=== PATIENT | female | born 1950 ===

== ENCOUNTER 2019-01-13 17:15 | Inpatient (IN) ==
[2019-01-13] MEDS ORDERED: Naloxone 0.4 MG/ML INJ IVP PRN (20:11)
[2019-01-13] MEDS ORDERED: *HR* Heparin 5,000 UNIT/ML VIAL IVP PRN ×2 (20:29)
[2019-01-13] MEDS ORDERED: *HR* Heparin 5,000 UNIT/ML VIAL IVP ONE (20:29)
--- NOTE | 2019-01-13 20:29 | Internal Med History&Physical ---
<Darryl Calles - Last Filed: 01/14/19 03:00> Date of Encounter: 01/14/19 Time of Encounter: 20:16 Internal Medicine - H&P: HPI Chief complaint: Unresponsiveness Admitted From: Hospital to Hospital Transfer History of present illness: Ms. Andre is a 68 year old female with "very severe COPD" followed by [facility] who presented to outside hospital in respiratory distress. Report obtained from RN states that the patient was at home and sent a text to her stating that she was in distress and by the time the arrived the patient was found to be unresponsive. History of present illness is listed from outside hospital notes that EMS arrived and found the patient in the tripod position with difficulty breathing with saturations in the 70% range and upon transfer into the ambulance the patient became unresponsive. The patient arrived at outside facility she was intubated due to respiratory distress and there is no further history of present illness that could be gathered at that time. Review of systems was unable to be completed, it is known to patient is on an pro-air inhaler at home however there are no other home medications listed, there are no known drug allergies. Immunizations listed social history is significant for being a former smoker no other values are listed. At the outside facility patient was found to be hypertensive and tachycardic as well as borderline tachypneic, she was noted to be in respiratory distress with diffuse wheezing and rhonchi, report states the patient had a right-sided pneumothorax with chest tube placed, there is an x-ray report listed in the patient's file but I see no mention of intubation or chest tube placement, for this reason I will repeat chest x-ray, there is a CT scan of the head listed which shows opacification of the right frontal sinus with no other acute findings, however upon patient presentation she is noted to be anisocoric with a minimally responsive left pupil right pupil is appropriately reactive to light, I will reperform patient's CAT scan of the head at this time for further evaluation. Patient also had CT scan abdomen and pelvis performed at outside facility which shows diverticulosis which likely colitis in the rectosigmoid colon, as well as ileus without bowel obstruction, no other acute findings were identified. Patient's laboratory values showed an ABG with a respiratory acidosis, she has a mildly elevated white cell count at 11.4 on CBC, BMP reveals elevated glucose at 311 with a mild elevation in her creatinine at 1.11, lactic acid is elevated at 6.2, patient's troponin is elevated 0.22-she was placed on a heparin drip by outside facility which we will continue here in the ICU, Upon admission to the ICU I will initiate sepsis subset due to elevated lactic acid we will obtain blood cultures repeat lactic acid, I will hold antibiotics at this time for repeat laboratories which will include a CBC BMP hepatic panel, lipase, ammonia, lactic acid blood cultures magnesium, phosphorus, troponin, BN P, d-dimer, coags, CT scan of the head, chest x-ray, KUB, ABG. Assessment and plan: Encephalopathy: Patient is currently intubated, Mechanically ventilated and sedated with propofol drip Patient is anisocoric with left pupil approximately 4 mm right pupil approximately 2-3 mm left pupil is sluggish to light CT scan at outside facility shows no acute process-we will obtain repeat CT scan of the head at this time as there is no mention of anisocoria in the outside facilities documentation for further investigation. Acute hypoxic respiratory failure: Patient is intubated and mechanically ventilated Diminished lung sounds throughout with rhonchi There is a right-sided chest tube placement with a minimal amount of sanguinous fluid noted in suction device Repeat chest x-ray for verification of tube placement and chest tube KUB for placement of a G-tube Elevated troponin: Patient with elevated troponin at outside facility Noted midline sternotomy scar Repeat troponin, perform d-dimer Continue ACS dose heparin drip EKG at outside facility shows a sinus tachycardia with T-wave inversions noted in the inferior lateral leads, no signs of acute ischemic change Repeat EKG Consult cardiology Lactic acidosis: Initiate sepsis subset for ICU admission Blood cultures, repeat lactic acid, sputum cultures, urinalysis and urine culture Basic labs CT scan abdomen and pelvis shows colitis with diverticulitis and likely ileus Hepatic panel, lipase, ammonia DVT prophylaxis: Patient is on heparin drip Internal Medicine - H&P: Meds Allergy/AdvReac Type Severity Reaction Status Date / Time No Known Allergies Allergy Unverified 10/15/16 12:12 ROS unobtainable: due to endotracheal tube, due to mental status All Systems PM: A 10-system review of systems was performed and is negative for pertinent findings except as documented above in the HPI. - Constitutional Vitals: Resp BP Pulse Ox 20 149/108 99 01/13/19 20:05 01/13/19 20:05 01/13/19 20:05 General appearance: Present: A&O X 0 (Intubated and mechanically ventilated with sedation) Exam: On my initial evaluation in the ICU the patient is intubated and mechanically ventilated, her pupils appear to be anisocoric with left pupil measuring 4 mm and sluggish responsiveness, right pupils approximately 2-3 mm and briskly responsive. The patient is notably agitated as it appears the Versed drip is not adequately managing her level of sedation, I will transfer this to propofol drip at this time. Patient's cardiopulmonary auscultation reveals diminished lung sounds throughout with faint rhonchi, abdominal exam reveals normal bowel sounds abdomen is soft nontender nondistended, there is no peripheral edema noted pulse is strong peripherally. Skin is normal color warm dry and intact, there is a right-sided chest tube with approximately 10-15 mL of sanguinous f luid drainage. - Head Head exam: Present: atraumatic, normal inspection, normocephalic - Eye Eye exam: Present: PERRL (Anisocoria). Absent: scleral icterus - Neck Neck exam general surgery: Present: supple, trachea midline - Respiratory Respiratory exam: Present: decreased breath sounds, rhonchi - Cardiovascular Cardiovascular exam: Present: RRR, +S1, +S2. Absent: diastolic murmur, +S3, +S4, systolic murmur - GI/Abdominal GI/Abdominal exam: Present: normal bowel sounds, soft. Absent: distended, firm, guarding, rebound, rigid, tenderness - Extremities Exam Extremities exam: Present: warm, radial pulses palpable and symmetrical. Absent: pedal edema - Skin Skin exam: Present: dry, intact, warm Internal Med - H&P Results - Labs CBC & Chem 7: 01/13/19 23:51 01/13/19 20:07 - Time Spent With Patient Total time spent is greater than 50% in coordination of care (as documented) at patient's floor/unit and/or counseling patient: <Oziel Capellan - Last Filed: 01/14/19 03:10> Date of Encounter: 01/14/19 Internal Medicine - H&P: HPI History of present illness: Ms. Andre is a 68 year old female All Systems PM: A 10-system review of systems was performed and is negative for pertinent findings except as documented above in the HPI. - Constitutional Vitals: Temp Pulse Resp BP Pulse Ox 97.3 F L 82 16 104/69 98 01/14/19 00:00 01/14/19 01:00 01/14/19 01:00 01/14/19 01:00 01/14/19 01:00 Internal Med - H&P Results - Labs CBC & Chem 7: 01/13/19 23:51 01/13/19 20:07 Labs: Short CBC 01/13/19 Range/Units 23:51 WBC 10.2 (4.3-11.1) K/mcL Hgb 15.0 (11.5-15.4) g/dL Hct 46.8 H (35.3-44.9) % Plt Count 170 (140-400) K/mcL Neutrophils # 9.6 H (1.6-8.9) K/mcL BMP 01/13/19 20:07 Sodium 142 Potassium 4.1 Chloride 110 H Carbon Dioxide 20 L BUN 9 Creatinine 0.65 Glucose 135 H Calcium 8.3 L Cardiac Enzymes 01/13/19 Range/Units 20:07 Troponin I 0.87 H* (< 0.04) ng/mL Liver Function 01/13/19 Range/Units 20:07 Total Bilirubin 0.4 (0.3-1.0) mg/dL Direct Bilirubin 0.1 (0.0-0.2) mg/dL AST 26 (13-39) Units/L ALT 14 (7-52) Units/L Alkaline Phosphatase 88 (34-104) Units/L Albumin 3.9 (3.5-5.7) g/dL - ABG Interpretation ABG results: 01/13/19 22:42 ABG pH 7.33 ABG pCO2 42 ABG pO2 109 H ABG HCO3 22 ABG Total CO2 23 ABG O2 Saturation 98 ABG Base Excess -4 L - Impressions ITS Impressions Chest X-Ray 01/13/19 21:28 IMPRESSION: Support apparatus as above, without gross pneumothorax. Emphysema. D/ / Ruel Saldaña MD / Ruel Saldaña MD Interpreting Provider: Ruel Saldaña MD X-Ray 01/13/19 21:28 IMPRESSION: Tip and side port of the nasogastric tube are in the expected location, superimposed over the gastric body. D/ / Brain Grove MD / Brain Grove MD Interpreting Provider: Brain Grove MD - Time Spent With Patient Total time spent is greater than 39 minutes 50% in coordination of care (as documented) at patient's floor/unit and/or counseling patient: Greater than 35 minutes - Attending Attestation Patient seen and examined independently, including review of objective data i ncluding labs. I agree with plan of care as documented below by the resident with the following comments: Encephalopathy: CT head no acute intracranial process TSH, Na, BUN, Calcium reviewed. Ammonia came back normal. SAT in the a.m. If persistent unresponsive or change of baseline would benefit from MRI brain. Acute hypoxic respiratory failure secondary to pneumothorax: chest tube placed on suction. Positioning verified on chest x-ray Intubated Echocardiogram pending. elevated D-dimer--> CTA orderred. SAT/SBT tomorrow. Elevated troponin: EKG reviewed. Trend troponin Heparin drip, ASA, statin. Cardiology consultation. Low bicarb: VBG orderred. DVT prophylaxis: on systemic anticoag DIspo: >2 day stay.
[2019-01-13 22:50] LABS: ABG Base Excess -4 mEq/L (-2 to 3); ABG HCO3 22 mEq/L (21-27); ABG Oxygen Saturation 98 % (95-98); ABG PCO2 42 mmHg (35-45); ABG PH 7.33 pH Units (7.32-7.45); ABG PO2 109 mmHg (85-104); ABG TCO2 23 mEq/L (20-26); Blood Gas Modality ASSIST CONTROL; Blood Gas PEEP 5 cm H2O; Blood Gas VT 400 cc
[2019-01-13 23:36] LABS: Heparin anti-factor XA UFH 0.05 IU/mL (0.30-0.70); INR 0.9; Prothrombin Time 10.3 Seconds (9.4-12.1)
[2019-01-13 23:37] LABS: Activated Partial Thrombo Time 29.5 Seconds (26.0-36.0)
[2019-01-13 23:47] LABS: Magnesium 2.1 mg/dL (1.6-2.6); Phosphorous 3.5 mg/dL (2.7-4.5)
[2019-01-13 23:59] LABS: Blood Urea Nitrogen 9 mg/dL (8-23); Carbon Dioxide 20 mEq/L (23-29); Chloride 110 mEq/L (98-107); Glucose 135 mg/dL (70-105); Osmolality,Calculated 295 (280-300); Potassium 4.1 mEq/L (3.5-5.1); Sodium 142 mEq/L (136-145); Troponin I 0.87 ng/mL (< 0.04)
[2019-01-14 00:16] LABS: Alanine Aminotransferase 14 Units/L (7-52); Albumin 3.9 g/dL (3.5-5.7); Albumin/Globulin Ratio 1.9 (1.1-2.2); Alkaline Phosphatase 88 Units/L (34-104); Aspartate Amino Transferase 26 Units/L (13-39); BUN/Creatinine Ratio 14 (6-26); Bilirubin,Direct 0.1 mg/dL (0.0-0.2); Bilirubin,Indirect 0.3 mg/dL (0.0-1.2); Bilirubin,Total 0.4 mg/dL (0.3-1.0); Calcium 8.3 mg/dL (8.6-10.3); eGFR For African Americans > 60 (> 60); eGFR For Non-African Americans > 60 (> 60)
[2019-01-14 00:17] LABS: Globulin 2.1 g/dL (2.4-3.5); Lipase 7 Units/L (11-82)
[2019-01-14] MEDS: Heparin 25,000 UNIT/250 ML D5W 25,000 UNIT/250 ML IV.SOLN IVC SCH (00:24)
[2019-01-14 00:27] LABS: Basophils % 0.2 %; Eosinophils % 0.3 %; Immature Granulocytes % 0.5 % (0-4); Lymphocytes % 3.2 %; Monocytes % 1.9 %; Segmented Neutrophils % 93.9 %
[2019-01-14 01:25] LABS: Hematocrit 46.8 % (35.3-44.9); Immature Platelets 13.1 % (1.1-6.1); Lymphocytes # 0.3 K/mcL (0.6-4.6); Mean Corpuscular HGB Conc 32.1 g/dL (31.6-35.5); Mean Corpuscular Hemoglobin 31.5 pg (28.0-33.3); Mean Corpuscular Volume 98.3 fL (83.0-100.0); Mean Platelet Volume 12.5 fL (9.4-12.4); Monocytes # 0.2 K/mcL (0.0-1.3); Neutrophils # 9.6 K/mcL (1.6-8.9); Nucleated Red Blood Cells 0.3 /100 WBC (0); Platelet Count 170 K/mcL (140-400); Red Blood Count 4.76 M/mcL (3.82-4.97); Red Cell Distribution Width 13.6 % (11.5-14.5); White Blood Count 10.2 K/mcL (4.3-11.1)
[2019-01-14 01:27] LABS: Platelet Clumps Few (Not Present); Platelet Estimate Normal (Normal)
[2019-01-14] MEDS ORDERED: Isovue-370 500 ML BOTTLE IVP ONE (02:19)
[2019-01-14] MEDS ORDERED: Aspirin 81 MG TAB.CHEW GTUBE STA (02:19)
[2019-01-14 02:50] LABS: Bilirubin,Urine Small (Negative); Blood,Urine Large (Negative); Clarity,Urine Turbid (Clear); Color,Urine Dark Yellow (Yellow); Glucose,Urine (UA) Normal (Normal); Ketones,Urine 80 mg/dL (Negative); Leukocyte Esterase,Urine Trace (Negative); Nitrite,Urine Negative (Negative); PH,Urine 5.5 pH Units (5.0-8.0); Protein,Urine 30 mg/dL (Neg-Trace); Specific Gravity,Urine 1.024 (1.010-1.025); Urobilinogen,Urine Normal (Normal)
[2019-01-14 02:51] LABS: Bacteria,Urine None Seen per hpf (None-Few); Squamous Epithelial Cell,Urine Many per lpf (None-Few); WBC,Urine 15-30 per hpf (0-3)
[2019-01-14 03:08] LABS: Calcium Oxalate Crystals,Urine Present; RBC,Urine TNTC per hpf (0-3)
[2019-01-14 03:09] LABS: Hyaline Casts,Urine None Seen per lpf (None-Few)
[2019-01-14 04:20] LABS: ABG Base Excess -3 mEq/L (-2 to 3); ABG HCO3 22 mEq/L (21-27); ABG Oxygen Saturation 96 % (95-98); ABG PCO2 36 mmHg (35-45); ABG PH 7.39 pH Units (7.32-7.45); ABG PO2 84 mmHg (85-104); ABG TCO2 23 mEq/L (20-26); Blood Gas Modality ASSIST CONTROL; Blood Gas PEEP 5 cm H2O; Blood Gas VT 400 cc
--- NOTE | 2019-01-14 08:10 | Pulmonology Consult Note ---
<Fermin Montiel W - Last Filed: 01/14/19 13:21> Date of Encounter: 01/14/19 Medications and Allergies Albuterol Sulfate [Ventolin Hfa] 2 inh PO Q4H PRN 01/14/19 [History] Budesonide/Formoterol 160/4.5 [Symbicort 160/4.5] 2 inh IH BIDR 01/14/19 [History] Tiotropium [place] [Spiriva Respimat] 2 inh IH DAILY 01/14/19 [History] Allergy/AdvReac Type Severity Reaction Status Date / Time No Known Allergies Allergy Unverified 10/15/16 12:12 All Systems: The remainder of the systems were reviewed and are negative Physical Examination Vital Signs: Vital Signs, Last 4 Hours Temp Pulse Resp BP Pulse Ox 01/14/19 12:26 96.8 F L 01/14/19 10:13 96.8 F L 16 128/85 97 01/14/19 10:00 80 15 120/79 96 Ventilator Settings Ventilator Settings: Ventilator Settings, Last 8 Hours Ventilator Tidal Volume 400 Setting Ventilator Tidal Volume 400 Setting Ventilator Tidal Volume 400 Setting Ventilator Tidal Volume 400 Setting Ventilator Tidal Volume 400 Setting Ventilator Tidal Volume 400 Setting Ventilator Tidal Volume 400 Setting Ventilator Tidal Volume 400 Setting Ventilator Tidal Volume 400 Setting Ventilator Respiratory Rate 10 Setting Ventilator Respiratory Rate 10 Setting Ventilator Respiratory Rate 16 Setting Ventilator Respiratory Rate 10 Setting Ventilator Respiratory Rate 10 Setting Ventilator Respiratory Rate 16 Setting Ventilator Respiratory Rate 16 Setting Ventilator Respiratory Rate 16 Setting Ventilator Respiratory Rate 16 Setting Actual Respiratory Rate 16 Actual Respiratory Rate 16 Actual Respiratory Rate 16 Actual Respiratory Rate 16 Actual Respiratory Rate 16 Positive End Expiratory 0 Pressure Positive End Expiratory 0 Pressure Positive End Expiratory 5 Pressure Positive End Expiratory 5 Pressure Positive End Expiratory 5 Pressure Positive End Expiratory 5 Pressure Peak Inspiratory Airway 19 Pressure Peak Inspiratory Airway 18 Pressure Peak Inspiratory Airway 18 Pressure Peak Inspiratory Airway 18 Pressure Peak Inspiratory Airway 19 Pressure Results - Laboratory Findings CBC and BMP: 01/14/19 09:26 01/14/19 09:26 ABG ABG pH 7.39 pH Units (7.32-7.45) 01/14/19 10:31 ABG pCO2 38 mmHg (35-45) 01/14/19 10:31 ABG pO2 74 mmHg (85-104) L 01/14/19 10:31 ABG O2 Saturation 95 % (95-98) 01/14/19 10:31 PT/INR, D-dimer PT 10.3 Seconds (9.4-12.1) 01/13/19 20:29 D-Dimer 1026 ng/mLFEU (0-500) H 01/13/19 20:29 Abnormal lab findings: Abnormal lab results WBC 11.4 K/mcL (4.3-11.1) H 01/14/19 09:26 Hct 46.8 % (35.3-44.9) H 01/13/19 23:51 MCV 100.5 fL (83.0-100.0) H 01/14/19 09:26 MCHC 30.7 g/dL (31.6-35.5) L 01/14/19 09:26 MPV 12.5 fL (9.4-12.4) H 01/13/19 23:51 Neutrophils # 9.9 K/mcL (1.6-8.9) H 01/14/19 09:26 Lymphocytes # 0.3 K/mcL (0.6-4.6) L 01/13/19 23:51 Nucleated RBCs/100 WBC 0.3 /100 WBC (0) H 01/13/19 23:51 Clumped Platelets Few (Not Present) A 01/13/19 23:51 Immature Plt Fraction 13.1 % (1.1-6.1) H 01/13/19 23:51 D-Dimer 1026 ng/mLFEU (0-500) H 01/13/19 20:29 Heparin Anti-Xa, Unfract 0.87 IU/mL (0.30-0.70) H 01/14/19 06:54 ABG pO2 74 mmHg (85-104) L 01/14/19 10:31 ABG Base Excess -3 mEq/L (-2 to 3) L 01/14/19 04:16 Chloride 110 mEq/L (98-107) H 01/13/19 20:07 Carbon Dioxide 20 mEq/L (23-29) L 01/14/19 09:26 Glucose 138 mg/dL (70-105) H 01/14/19 09:26 POC Glucose 151 mg/dL (70-99) H 01/13/19 23:34 Lactic Acid 3.0 mmol/L (0.5-2.2) H 01/14/19 09:26 Calcium 8.3 mg/dL (8.6-10.3) L 01/13/19 20:07 Troponin I 1.03 ng/mL (< 0.04) H* 01/14/19 09:26 B-Natriuretic Peptide 121 pg/mL (Less than 100) H 01/13/19 20:07 Serum Total Protein 6.0 g/dL (6.4-8.9) L 01/14/19 09:26 Globulin 2.1 g/dL (2.4-3.5) L 01/14/19 09:26 Lipase 7 Units/L (11-82) L 01/13/19 20:07 Procalcitonin 1.89 ng/mL (0.00-0.15) H 01/14/19 09:26 Urine Clarity Turbid (Clear) A 01/14/19 02:40 Urine Protein 30 mg/dL (Neg-Trace) H 01/14/19 02:40 Urine Ketones 80 mg/dL (Negative) H 01/14/19 02:40 Urine Blood Large (Negative) H 01/14/19 02:40 Urine Bilirubin Small (Negative) H 01/14/19 02:40 Ur Leukocyte Esterase Trace (Negative) H 01/14/19 02:40 Urine Microscopic RBC TNTC per hpf (0-3) H 01/14/19 02:40 Urine Microscopic WBC 15-30 per hpf (0-3) H 01/14/19 02:40 Ur Squamous Epith Cells Many per lpf (None-Few) H 01/14/19 02:40 Ur Culture Indicated? YES (NO) A 01/14/19 02:40 - Microbiology Findings Microbiology Findings: Microbiology, Last 48 Hours 01/13/19 22:00 Blood Culture - Preliminary Peripheral Venipuncture Culture is incubating and being continuously monitored for growth. Final report to follow. 01/14/19 02:40 Urine Culture - Preliminary Urine,Clean Catch Culture is incubating. - Clinical Findings Intake & Output: Intake & Output 01/13/19 01/14/19 01/14/19 23:59 07:59 15:59 Intake Total 100 / 318.0 218.0 / 318.0 Output Total 212 / 262 218 / 545 327 / 545 Balance -212 / -262 -118 / -227.0 -109.0 / -227.0 Weight 54.7 kg 54.7 kg Consult Discharge Plan - Plan Referrals: Lissette Chen CNP [Primary Care Provider] - - Attending Attestation I examined this patient and my medical decision-making was reviewed with the Puneet austin Physician. I agree with the documented findings, disposition and treatment plan as described except to the extent set forth below. We independently had [id number] contact with the patient I spent 34 min of Critical Care time with this patient. It involved decision making of high complexity to assess, manipulate, and support vital organ system failure and/or to prevent further life threatening deterioration of the patient's condition. The time involved in the performance of separately reportable procedures was not counted toward critical care time. Patient seen and examined at bedside Labs, radiology, chart personally reviewed. Management was reviewed during multidisciplinary critical care rounds. INTERSTATE BUS DISPATCHER: The patient is intubated and sedated she does have spontaneous movement of all extremities. We will keep her more deeply sedated for goal Ann 3 or 4 today while in respiratory failure on given underlying COPD Pulm: Acute hypoxic respiratory failure secondary to COPD complicated by spontaneous secondary pneumothorax with severe underlying of bullous emphysema. This is a life-threatening event I feel the patient should have definitive management surgically if possible I consulted the CT surgeon for further evaluation of this will continue IV steroids for now and bronchodilators. We will continue chest tube to wall wall suction today. I decreased/eliminated her positive end expiratory pressure given underlying bullous emphysema and will closely monitor peak and plateau pressures. We will continue low tidal volume ventilatory strategy. Gas exchange appears acceptable at this time Cards: Patient has NSTEMI and we will get a emergent limited echocardiogram to evaluate for wall motion abnormality she is on ACS protocol for now she will need a formal cardiology consultation GI: GI prophylaxis while on vent Nutrition: Nothing by mouth for now Renal: UOP Monitored, Cont to Trend sCr and monitor Electrolytes. ID: Possible UTI no clear evidence of focal pulmonary infection she is on broad- spectrum antibiotics for now we will do de-escalate over the next 24-48 hours also check a pro-calcitonin level Heme/Onc: She is on heparin infusion for ACS incidentally patient was noted to have possible stranding/hemorrhage around the adrenal region and I did sit down and discuss this personally with the radiologist operations section manager here who reached out to the expert in body radiology at [facility] Dr Roberts and after further review appears this is morbidly nonspecific finding and very much unlikely to be hemorrhage therefore the risk of continuation of heparin at this time exceeds bleeding risk but may need to rescan patient the next 24-48 hours if clinically indicated or drop in hemoglobin Endo: Glucose Monitored Integ/MSK: Skin Care per routine ICU Nursing Protocol to prevent ulcers. Lines: All lines examined without evidence of infection : Dispo: Monitor in ICU for critical illness CODE: Full Code <Romeo Gray - Last Filed: 01/14/19 13:26> Date of Encounter: 01/14/19 Time of Encounter: 08:09 Assessment and Plan (1) Acute encephalopathy Current Visit: Yes Status: Acute Likely due to respiratory distress secondary to COPD exacerbation. Intubated/sedated on propofol drip. Patient had elevated troponins and d-dimer. CTA neg for PE. Noted to be anisocoric with L pupil 4mm that is sluggishly reactive, R pupil 2- 3mm. Plan: - On fentanyl and propofol - Cont to monitor vitals and mental status (2) Acute respiratory failure with hypoxia Current Visit: Yes Status: Acute Presented with resp distress, was intubated. R PTX now not observed on CXR after chest tube placement. Plan: - Intubated/sedated on fent/prop, vent bundle ordered - Daily ABGs - On duonebs, steroids 40mg IV BID - Started on zosyn 01/14 (3) Cardiomyopathy Current Visit: Yes Status: Acute Elevated troponins with limited echo showing reduced EF of 20-25%. Concern for takotsubo vs stress-induced cardiomyopathy. Plan: - Cardiology consulted - Cont to trend troponins - Currently on heparin gtt Qualifiers: Cardiomyopathy type: unspecified Qualified Code(s): I42.9 - Cardiomyopathy, unspecified (4) Elevated troponin Current Visit: Yes Status: Acute Noted to have elevated troponin at admission. Increased from 0.87 to 1.03. Plan: - Will cont to trend - Cardiology consulted (5) Lactic acidosis Current Visit: Yes Status: Acute Initiated sepsis protocol for ICU admit. Blood, urine, sputum cultures obtained. CT AP showed possible diverticulitis and ileus. CTA also noted possible adrenal hemorrhage, does not need further imaging at this time. Plan: - Cont to trend labs - On zosyn for abx coverage (6) DVT prophylaxis Current Visit: Yes Status: Acute DVT PPX: heparing gtt, EPCDs Analgesia: fentanyl Sedation: propofol SBT: none Glycemic control: none Bowl regimen: none Activity: intubated/sedated Fluids: none Electrolytes: replete as necessary Nutrition: NPO GI ppx: PPI Lines: 2x PIVs Consults: Wanda pulm Code: FULL Dispo: ICU History of Present Illness Consult date: 01/14/19 Requesting physician: Ky Hassan Reason for consult: dyspnea, COPD Chief complaint: hypoxia History of present illness: Patient is a 68-year-old female with a past medical history of COPD who presented to an outside hospital with respiratory distress. According to chart review, EMS found the patient to be in tripod position with difficulty breathing with oxygen saturation of 78%. Upon transfer to the ambulance the patient became unresponsive. Patient was sent intubated for respiratory distress and no further history could not be obtained at that time. She was found to be hypertensive and tachycardic. Patient had a right-sided pneumothorax and a chest tube was placed. Patient was also noted to be anisocoric with minimally responsive left pupil, right pupil is appropriately reactive to light. Patient had a CT head with no acute findings. CT AP showed diverticulosis with likely colitis in the rectosigmoid colon, ileus without bowel obstruction. The patient's initial ABG showed respiratory acidosis, WBC 11.4, lactic acid 6.2, creatinine 1.1, troponin 0.22. D-dimer is 1026. CTA was negative for PE. She was started on a heparin drip with ACS dosing at the outside facility. An EKG showed sinus tachycardia with T-wave inversions noted in the inferolateral leads, no signs of acute ischemic changes. Upon admission to the ICU, patient is still intubated/sedated and on mechanical ventilator on propofol drip. Nonresponsive to stimuli. Does not appear to be in any discomfort or pain. Labs were notable for a troponin that was 0.87 and continued to up trend to 1.3. Past Med Surg Social Fam HX - Past Medical History Source: unable to obtain Medical history: COPD Additional medical history: unknown and no family is present - Past Surgical History Additional surgical history: unknown/no family is present - Social History Smoking Status: Former smoker ROS unobtainable: due to endotracheal tube All Systems: The remainder of the systems were reviewed and are negative Physical Examination Vital Signs: Vital Signs, Last 4 Hours Temp Pulse Resp BP Pulse Ox 01/14/19 08:07 16 128/85 96 01/14/19 07:00 82 16 128/85 99 01/14/19 06:00 82 16 125/84 99 01/14/19 05:06 16 115/77 97 01/14/19 05:00 80 16 115/77 97 01/14/19 04:44 98.8 F General appearance: no acute distress Eyes: nonicteric ENT: oropharynx moist Neck: supple Effort: normal Inspection: normal Auscultation: bilateral: clear Percussion: bilateral: not dull Cardiovascular: regular rate and rhythm Gastrointestinal: normoactive bowel sounds, non-distended Integumentary: normal Extremities: no cyanosis, no edema, no clubbing Musculoskeletal: no deformities, ROM normal unable to assess due to mental status Ventilator Settings Ventilator Settings: Ventilator Settings, Last 8 Hours Ventilator Tidal Volume 400 Setting Ventilator Tidal Volume 400 Setting Ventilator Tidal Volume 400 Setting Ventilator Tidal Volume 400 Setting Ventilator Tidal Volume 400 Setting Ventilator Tidal Volume 400 Setting Ventilator Tidal Volume 400 Setting Ventilator Tidal Volume 400 Setting Ventilator Tidal Volume 400 Setting Ventilator Tidal Volume 400 Setting Ventilator Tidal Volume 400 Setting Ventilator Tidal Volume 400 Setting Ventilator Respiratory Rate 16 Setting Ventilator Respiratory Rate 16 Setting Ventilator Respiratory Rate 16 Setting Ventilator Respiratory Rate 16 Setting Ventilator Respiratory Rate 16 Setting Ventilator Respiratory Rate 16 Setting Ventilator Respiratory Rate 16 Setting Ventilator Respiratory Rate 16 Setting Ventilator Respiratory Rate 16 Setting Ventilator Respiratory Rate 16 Setting Ventilator Respiratory Rate 16 Setting Ventilator Respiratory Rate 16 Setting Actual Respiratory Rate 16 Actual Respiratory Rate 16 Actual Respiratory Rate 16 Actual Respiratory Rate 16 Actual Respiratory Rate 16 Actual Respiratory Rate 16 Actual Respiratory Rate 16 Actual Respiratory Rate 16 Actual Respiratory Rate 16 Actual Respiratory Rate 16 Actual Respiratory Rate 16 Positive End Expiratory 5 Pressure Positive End Expiratory 5 Pressure Positive End Expiratory 5 Pressure Positive End Expiratory 5 Pressure Positive End Expiratory 5 Pressure Positive End Expiratory 5 Pressure Positive End Expiratory 5 Pressure Positive End Expiratory 5 Pressure Positive End Expiratory 5 Pressure Positive End Expiratory 5 Pressure Positive End Expiratory 5 Pressure Positive End Expiratory 5 Pressure Peak Inspiratory Airway 18 Pressure Peak Inspiratory Airway 18 Pressure Peak Inspiratory Airway 19 Pressure Peak Inspiratory Airway 18 Pressure Peak Inspiratory Airway 18 Pressure Peak Inspiratory Airway 17 Pressure Peak Inspiratory Airway 18 Pressure Peak Inspiratory Airway 17 Pressure Peak Inspiratory Airway 18 Pressure Peak Inspiratory Airway 17 Pressure Peak Inspiratory Airway 17 Pressure Results - Laboratory Findings CBC and BMP: 01/14/19 09:26 01/14/19 09:26 ABG ABG pH 7.39 pH Units (7.32-7.45) 01/14/19 04:16 ABG pCO2 36 mmHg (35-45) 01/14/19 04:16 ABG pO2 84 mmHg (85-104) L 01/14/19 04:16 ABG O2 Saturation 96 % (95-98) 01/14/19 04:16 PT/INR, D-dimer PT 10.3 Seconds (9.4-12.1) 01/13/19 20:29 D-Dimer 1026 ng/mLFEU (0-500) H 01/13/19 20:29 Abnormal lab findings: Abnormal lab results Hct 46.8 % (35.3-44.9) H 01/13/19 23:51 MPV 12.5 fL (9.4-12.4) H 01/13/19 23:51 Neutrophils # 9.6 K/mcL (1.6-8.9) H 01/13/19 23:51 Lymphocytes # 0.3 K/mcL (0.6-4.6) L 01/13/19 23:51 Nucleated RBCs/100 WBC 0.3 /100 WBC (0) H 01/13/19 23:51 Clumped Platelets Few (Not Present) A 01/13/19 23:51 Immature Plt Fraction 13.1 % (1.1-6.1) H 01/13/19 23:51 D-Dimer 1026 ng/mLFEU (0-500) H 01/13/19 20:29 Heparin Anti-Xa, Unfract 0.05 IU/mL (0.30-0.70) L 01/13/19 20:29 ABG pO2 84 mmHg (85-104) L 01/14/19 04:16 ABG Base Excess -3 mEq/L (-2 to 3) L 01/14/19 04:16 Chloride 110 mEq/L (98-107) H 01/13/19 20:07 Carbon Dioxide 20 mEq/L (23-29) L 01/13/19 20:07 Glucose 135 mg/dL (70-105) H 01/13/19 20:07 POC Glucose 151 mg/dL (70-99) H 01/13/19 23:34 Lactic Acid 2.9 mmol/L (0.5-2.2) H 01/14/19 03:12 Calcium 8.3 mg/dL (8.6-10.3) L 01/13/19 20:07 Troponin I 0.87 ng/mL (< 0.04) H* 01/13/19 20:07 B-Natriuretic Peptide 121 pg/mL (Less than 100) H 01/13/19 20:07 Serum Total Protein 6.0 g/dL (6.4-8.9) L 01/13/19 20:07 Globulin 2.1 g/dL (2.4-3.5) L 01/13/19 20:07 Lipase 7 Units/L (11-82) L 01/13/19 20:07 Urine Clarity Turbid (Clear) A 01/14/19 02:40 Urine Protein 30 mg/dL (Neg-Trace) H 01/14/19 02:40 Urine Ketones 80 mg/dL (Negative) H 01/14/19 02:40 Urine Blood Large (Negative) H 01/14/19 02:40 Urine Bilirubin Small (Negative) H 01/14/19 02:40 Ur Leukocyte Esterase Trace (Negative) H 01/14/19 02:40 Urine Microscopic RBC TNTC per hpf (0-3) H 01/14/19 02:40 Urine Microscopic WBC 15-30 per hpf (0-3) H 01/14/19 02:40 Ur Squamous Epith Cells Many per lpf (None-Few) H 01/14/19 02:40 Ur Culture Indicated? YES (NO) A 01/14/19 02:40 - Microbiology Findings Microbiology Findings: Microbiology, Last 48 Hours 01/14/19 02:40 Urine Culture - Preliminary Urine,Clean Catch Culture is incubating. - Clinical Findings Intake & Output: Intake & Output 01/13/19 01/14/19 01/14/19 23:59 07:59 15:59 Intake Total 100 / 100 Output Total 212 / 262 218 / 218 Balance -212 / -262 -118 / -118 Weight 54.7 kg 54.7 kg
[2019-01-14] MEDS ORDERED: Artificial Tears SOLN 15 ML BOTTLE BOTH EYES PRN (08:15)
[2019-01-14 09:41] LABS: Basophils % 0.1 %; Hematocrit 43.7 % (35.3-44.9); Immature Granulocytes % 0.7 % (0-4); Lymphocytes # 0.7 K/mcL (0.6-4.6); Lymphocytes % 6.2 %; Mean Corpuscular HGB Conc 30.7 g/dL (31.6-35.5); Mean Corpuscular Hemoglobin 30.8 pg (28.0-33.3); Mean Corpuscular Volume 100.5 fL (83.0-100.0); Mean Platelet Volume 12.1 fL (9.4-12.4); Monocytes # 0.7 K/mcL (0.0-1.3); Neutrophils # 9.9 K/mcL (1.6-8.9); Platelet Count 180 K/mcL (140-400); Red Blood Count 4.35 M/mcL (3.82-4.97); Red Cell Distribution Width 13.2 % (11.5-14.5); White Blood Count 11.4 K/mcL (4.3-11.1)
[2019-01-14 09:44] LABS: Hemoglobin 13.4 g/dL (11.5-15.4)
[2019-01-14] MEDS: FentaNYL (PF) 1,000 MCG in 0.9 % Sodium Chloride 80 ML IVC SCH (09:57)
[2019-01-14] MEDS: Chlorhexidine Rinse 15 ML MOUTHWASH MM SCH ×2 (10:00→20:07)
[2019-01-14] MEDS: Pantoprazole 40 MG VIAL IVP SCH (10:00)
[2019-01-14] MEDS: Piperacillin/Tazobactam 3.375 GM in 0.9 % Sodium Chloride Mini Bag 100 ML IVPB SCH ×2 (10:00→16:23)
[2019-01-14 10:06] LABS: Troponin I 1.03 ng/mL (< 0.04)
[2019-01-14] MEDS ORDERED: Albuterol 2.5 MG/3 ML NEBULIZER IH PRN (10:20)
[2019-01-14 10:33] LABS: Alanine Aminotransferase 13 Units/L (7-52); Albumin 3.9 g/dL (3.5-5.7); Albumin/Globulin Ratio 1.9 (1.1-2.2); Alkaline Phosphatase 94 Units/L (34-104); Aspartate Amino Transferase 27 Units/L (13-39); BUN/Creatinine Ratio 14 (6-26); Bilirubin,Total 0.4 mg/dL (0.3-1.0); Blood Urea Nitrogen 10 mg/dL (8-23); Calcium 8.7 mg/dL (8.6-10.3); Carbon Dioxide 20 mEq/L (23-29); Chloride 107 mEq/L (98-107); Globulin 2.1 g/dL (2.4-3.5); Glucose 138 mg/dL (70-105); Osmolality,Calculated 289 (280-300); Phosphorous 2.8 mg/dL (2.7-4.5); Potassium 4.2 mEq/L (3.5-5.1); Sodium 139 mEq/L (136-145); eGFR For African Americans > 60 (> 60); eGFR For Non-African Americans > 60 (> 60)
[2019-01-14 10:34] LABS: ABG Base Excess -2 mEq/L (-2 to 3); ABG HCO3 23 mEq/L (21-27); ABG Oxygen Saturation 95 % (95-98); ABG PCO2 38 mmHg (35-45); ABG PH 7.39 pH Units (7.32-7.45); ABG PO2 74 mmHg (85-104); ABG TCO2 24 mEq/L (20-26); Blood Gas PEEP 0 cm H2O; Blood Gas VT 400 cc
[2019-01-14] MEDS: Ipratropium/Albuterol Neb 3 ML IH SCH ×4 (11:19→23:46)
[2019-01-14] MEDS: Artificial Tears SOLN 15 ML BOTTLE BOTH EYES SCH ×4 (12:10→23:49)
--- NOTE | 2019-01-14 12:49 | Internal Med Progress Note ---
Hospitalist Progress Note - Encounter Date of Encounter: 01/14/19 Time of Encounter: 07:50 - Subjective Interval History: Patient remains intubated and sedated. Events of last night at [facility] Anjel noted. I discussed the patient collaboratively with Dr. Montiel and MDR team. She has a chest tube in place and remains on a ventilator. She is also on heparin drip for troponin elevation and possible NSTEMI. Her pro-calcitonin remains elevated. We continued antibiotics and will await culture results. She was fluid resuscitated at [facility] and she was on IV fluids overnight. - Exam Vitals: Temp Pulse Resp BP Pulse Ox 96.8 F L 80 16 128/85 97 01/14/19 12:26 01/14/19 10:00 01/14/19 10:13 01/14/19 10:13 01/14/19 10:13 Exam: General: intubated and sedated HEENT: no icterus, neck supple Chest: Coarse wheezing, prolonged exp phase, coarse rhonchi; RRR Abdomen: soft NT, ND, + BS, no HSMG Ext: No CCE, equal pulses, no calf swelling Neuro: sedated, + purposeful movements Skin: warm and dry Imp/Plan: 1. Acute Hypoxic Respiratory Failure: Currently intubated and sedated; vent management per Dr. Montiel. Steroids, aerosols, antibiotics. Chest tube in place -- pulmonary to follow. 2. Spontaneous pneumothorax: 1. Chest tube placed at [facility]; current management per pulmonary. 3. NSTEMI: Consult cardiology. ECHO orderd. Continue Heparin drip. 4. UTI: Culture pending. Continue antibiotics. 5. DVT prohylaxis: Heparin drip. - Time Spent with Patient Total time spent is greater than 50% in coordination of care (as documented) at patient's floor/unit and/or counseling patient: Plan of Care Discussed with: other (MDR team; Dr. Montiel) Internal Medicine: Result - Labs CBC & Chem 7: 01/14/19 09:26 01/14/19 09:26 Labs: Short CBC 01/13/19 01/14/19 Range/Units 23:51 09:26 WBC 10.2 11.4 H (4.3-11.1) K/mcL Hgb 15.0 13.4 D (11.5-15.4) g/dL Hct 46.8 H 43.7 (35.3-44.9) % Plt Count 170 180 (140-400) K/mcL Neutrophils # 9.6 H 9.9 H (1.6-8.9) K/mcL BMP 01/13/19 01/14/19 20:07 09:26 Sodium 142 139 Potassium 4.1 4.2 Chloride 110 H 107 Carbon Dioxide 20 L 20 L BUN 9 10 Creatinine 0.65 0.70 Glucose 135 H 138 H Calcium 8.3 L 8.7 Cardiac Enzymes 01/13/19 01/14/19 Range/Units 20:07 09:26 Troponin I 0.87 H* 1.03 H* (< 0.04) ng/mL Liver Function 01/13/19 01/14/19 Range/Units 20:07 09:26 Total Bilirubin 0.4 0.4 (0.3-1.0) mg/dL Direct Bilirubin 0.1 (0.0-0.2) mg/dL AST 26 27 (13-39) Units/L ALT 14 13 (7-52) Units/L Alkaline Phosphatase 88 94 (34-104) Units/L Albumin 3.9 3.9 (3.5-5.7) g/dL Urine 01/14/19 Range/Units 02:40 Urine Color Dark Yellow (Yellow) Urine Clarity Turbid A (Clear) Urine pH 5.5 (5.0-8.0) pH Units Ur Specific [place] 1.024 (1.010-1.025) Urine Protein 30 H (Neg-Trace) mg/dL Urine Glucose (UA) Normal (Normal) mg/dL - ABG Interpretation ABG results: ABG ABG pH 7.39 pH Units (7.32-7.45) 01/14/19 10:31 ABG pCO2 38 mmHg (35-45) 01/14/19 10:31 ABG pO2 74 mmHg (85-104) L 01/14/19 10:31 ABG O2 Saturation 95 % (95-98) 01/14/19 10:31 PT/INR, D-dimer PT 10.3 Seconds (9.4-12.1) 01/13/19 20:29 D-Dimer 1026 ng/mLFEU (0-500) H 01/13/19 20:29 - Impressions Impressions Chest X-Ray 01/13/19 21:28 IMPRESSION: Support apparatus as above, without gross pneumothorax. Emphysema. D/ / uRel Saldaña MD / Ruel Saldaña MD Interpreting Provider: Ruel Saldaña MD X-Ray 01/13/19 21:28 IMPRESSION: Tip and side port of the nasogastric tube are in the expected location, superimposed over the gastric body. D/ / Brain Grove MD / Brain Grove MD Interpreting Provider: Brain Grove MD Chest CTA 01/14/19 07:15 IMPRESSION: 1. Suboptimal evaluation pulmonary artery subsegmental branches with no evident pulmonary emboli. 2. No significant change in trace to small anterior right pneumothorax with a right chest tube in place. 3. 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 4. New nodular thickening involving a portion of the left adrenal gland with adjacent stranding, potentially due to inflammation (including infection) or early hemorrhage. D/ / Carlos Thapa MD / Carlos Thapa MD Interpreting Provider: Carlos Thapa MD Echocardiogram Limited Views 01/14/19 11:50 Impressions: LVEF 20-25% with wall motion abnormalities that suggest Takotsubo or stress induced cardiomyopathy (EF previously normal 09/2016 by TTE) Clinical correlation is advised Left Ventricular Wall Motion: Rest Echo Findings The mid inferior septal wall was hypokinetic. The apex, apical inferior, mid inferior, apical anterior, mid anterior, apical septal, apical lateral, mid anterior lateral, mid anterior septal and mid inferior lateral napoles were akinetic. All other wall segments showed normal motion. Findings: ECG Findings * Sinus rhythm with BBB. Study Quality * Technically adequate exam. Left Ventricle * LVEF 20-25% with wall motion abnormalities that suggest Takotsubo or stress induced cardiomyopathy - VTE Reasons for not Prescribing Prophylaxis: Not indicated-Anticoagulated or INR therapeutic Consult Discharge Plan - Plan Referrals: Lissette Chen CNP [Primary Care Provider] -
--- NOTE | 2019-01-14 13:44 | Cardiology Consult Note ---
Date of Encounter: 01/14/19 Time of Encounter: 12:15 Assessment and Plan (1) NSTEMI (non-ST elevated myocardial infarction) Current Visit: Yes Status: Acute Type I vs type II ID in the setting of respiratory failure, COPD. Troponin up to 1.03. Continue to trend. EKG with Inverted T waves, could represent ischemia. TTE shows newly reduced EF at 20-25% compared to 2017 was normal. WMA suggest possible takostubo. Cardiac risk factors include tobacco use and family history. Recommend LHC once stable from respiratory standpoint. Continue heparin gtt. Asa, statin, bb. (2) Cardiomyopathy Current Visit: Yes Status: Acute Acute systolic CHF. No overt CHF on exam. EF 20-25%. Newly reduced. Ischemic work-up recommended once able. Caution with IV fluid. STrict I&O. Daily weights. Start bb and aceI and titrate as tolerated. Qualifiers: Cardiomyopathy type: unspecified Qualified Code(s): I42.9 - Cardiomyopathy, unspecified Discussion w patient/family: The assessment and plan as outlined above was discussed with the patient and/or family members who expressed understanding and agreement. All questions were answered. Thank you for involving us in the care of your patient. Please call wi th any questions. History of Present Illness Consult date: 01/14/19 Requesting physician: Ky Hassan Consult reason: Elevated troponin Chief complaint: Respiratory distress History of present illness: Ms. Andre is a 68 year old female with PM significant for severe COPD on home O2 and prior tobacco use. She presented to [facility] [place] by EMS with respiratory distress. She was intubated en route due to respiratory distress. In the ED she was found to have a spontaneous pnuemothorax in the setting of bollous emphysema. CT in place currently. Cardiology consulted today for elevated troponin up to 1.03. Pt remains intubated and sedated. at bedside. States patient was becoming increasing SOB over the summer with the hot weather. She did not c/o chest pain. No prior history of CAD. Past Med Surg Social Fam HX - Past Medical History Medical history: COPD Additional medical history: unknown and no family is present - Past Surgical History Additional surgical history: unknown/no family is present - Social History Smoking Status: Former smoker - Family History Father Cause of : CAD 60's Sister Cause of : CAD 63 Medications and Allergies Albuterol Sulfate [Ventolin Hfa] 2 inh PO Q4H PRN 01/14/19 [History] Budesonide/Formoterol 160/4.5 [Symbicort 160/4.5] 2 inh IH BIDR 01/14/19 [History] Tiotropium [place] [Spiriva Respimat] 2 inh IH DAILY 01/14/19 [History] Allergy/AdvReac Type Severity Reaction Status Date / Time No Known Allergies Allergy Unverified 10/15/16 12:12 All Systems Review: The remainder of the systems were reviewed and are negative Physical Examination Vital Signs, Last 4 Hours Temp Pulse Resp BP Pulse Ox 01/14/19 12:26 96.8 F L 01/14/19 10:13 96.8 F L 16 128/85 97 01/14/19 10:00 80 15 120/79 96 General: No Apparent Distress, Other (sedated) HEENT: Atraumatic, Normocephaly, Mucus Membranes Moist Neck: No JVD, Normal carotid pulses Cardiac: Reg Rate and Rhythm, Normal S1 and S2, No Murmur Lungs: Normal Breath Sounds, Other (intubated, lung sounds diminished) Neuro: Other (sedated) Abdomen: Soft, Non-Tender Skin: No rashes noted on visualized skin Musculoskeletal: No Chest Wall Tenderness Extremities: No Clubbing, No Cyanosis, No Edema, Normal Pulses Results 01/14/19 09:26 01/14/19 09:26 Lab Results 01/13/19 01/13/19 01/13/19 20:07 20:07 20:11 WBC Hgb Hct Plt Count INR APTT D-Dimer Sodium 142 Potassium 4.1 Chloride 110 H Carbon Dioxide 20 L BUN 9 Creatinine 0.65 Glucose 135 H Calcium 8.3 L Magnesium 2.1 Total Bilirubin 0.4 AST 26 ALT 14 Alkaline Phosphatase 88 Troponin I 0.87 H* B-Natriuretic Peptide 121 H Lipase 7 L TSH Cancelled 01/13/19 01/13/19 01/14/19 20:29 23:51 00:00 WBC 10.2 Hgb 15.0 Hct 46.8 H Plt Count 170 INR 0.9 APTT 29.5 D-Dimer 1026 H Sodium Potassium Chloride Carbon Dioxide BUN Creatinine Glucose Calcium Magnesium Total Bilirubin AST ALT Alkaline Phosphatase Troponin I B-Natriuretic Peptide Lipase TSH 0.373 01/14/19 01/14/19 09:26 09:26 WBC 11.4 H Hgb 13.4 D Hct 43.7 Plt Count 180 INR APTT D-Dimer Sodium 139 Potassium 4.2 Chloride 107 Carbon Dioxide 20 L BUN 10 Creatinine 0.70 Glucose 138 H Calcium 8.7 Magnesium 2.0 Total Bilirubin 0.4 AST 27 ALT 13 Alkaline Phosphatase 94 Troponin I 1.03 H* B-Natriuretic Peptide Lipase TSH - Imaging and Cardiology Echo: report reviewed - EKG Interpretation EKG results cardiology: personally reviewed Consult Discharge Plan - Plan Referrals: Lissette Chen, CAFE OPERATOR [Primary Care Provider] -
[2019-01-14] MEDS ORDERED: Metoprolol XL (24 HR) Succ 25 MG TAB.ER.24H PO SCH (14:00)
[2019-01-14] MEDS: MethylPREDNISolone 40 MG/ML VIAL IVP SCH (16:23)
--- NOTE | 2019-01-14 17:43 | Electrocardiograph Report ---
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
[2019-01-15] MEDS: Piperacillin/Tazobactam 3.375 GM in 0.9 % Sodium Chloride Mini Bag 100 ML IVPB SCH ×3 (00:50→16:37)
[2019-01-15 01:55] LABS: Basophils % 0.1 %; Hematocrit 40.7 % (35.3-44.9); Hemoglobin 12.6 g/dL (11.5-15.4); Immature Granulocytes % 0.8 % (0-4); Lymphocytes # 0.5 K/mcL (0.6-4.6); Lymphocytes % 4.7 %; Mean Corpuscular Hemoglobin 30.7 pg (28.0-33.3); Mean Corpuscular Volume 99.3 fL (83.0-100.0); Mean Platelet Volume 12.1 fL (9.4-12.4); Monocytes # 0.4 K/mcL (0.0-1.3); Monocytes % 3.8 %; Neutrophils # 9.6 K/mcL (1.6-8.9); Platelet Count 161 K/mcL (140-400); Red Cell Distribution Width 13.4 % (11.5-14.5); Segmented Neutrophils % 90.6 %; White Blood Count 10.6 K/mcL (4.3-11.1)
[2019-01-15 02:23] LABS: Platelet Estimate Decreased (Normal)
[2019-01-15 02:25] LABS: Chloride 109 mEq/L (98-107); Potassium 4.3 mEq/L (3.5-5.1); Sodium 141 mEq/L (136-145); Troponin I 0.54 ng/mL (< 0.04)
[2019-01-15 02:38] LABS: Alanine Aminotransferase 12 Units/L (7-52); Albumin 3.5 g/dL (3.5-5.7); Albumin/Globulin Ratio 1.7 (1.1-2.2); Alkaline Phosphatase 73 Units/L (34-104); Aspartate Amino Transferase 23 Units/L (13-39); BUN/Creatinine Ratio 17 (6-26); Bilirubin,Total 0.3 mg/dL (0.3-1.0); Blood Urea Nitrogen 11 mg/dL (8-23); Calcium 8.4 mg/dL (8.6-10.3); Carbon Dioxide 18 mEq/L (23-29); Globulin 2.1 g/dL (2.4-3.5); Glucose 127 mg/dL (70-105); Magnesium 2.1 mg/dL (1.6-2.6); Osmolality,Calculated 293 (280-300); Total Protein 5.6 g/dL (6.4-8.9); eGFR For African Americans > 60 (> 60); eGFR For Non-African Americans > 60 (> 60)
[2019-01-15] MEDS: Ipratropium/Albuterol Neb 3 ML IH SCH ×5 (03:40→20:04)
[2019-01-15] MEDS: Artificial Tears SOLN 15 ML BOTTLE BOTH EYES SCH ×6 (03:56→23:13)
[2019-01-15] MEDS ORDERED: 0.9 % Sodium Chloride 1,000 ML IVC ONE (04:16)
[2019-01-15] MEDS ORDERED: 0.9 % Sodium Chloride 1,000 ML ONE (04:17)
[2019-01-15 04:59] LABS: ABG Base Excess -1 mEq/L (-2 to 3); ABG HCO3 26 mEq/L (21-27); ABG Oxygen Saturation 90 % (95-98); ABG PCO2 53 mmHg (35-45); ABG PH 7.29 pH Units (7.32-7.45); ABG PO2 67 mmHg (85-104); ABG TCO2 27 mEq/L (20-26); Blood Gas Modality AF; Blood Gas PEEP 0 cm H2O; Blood Gas VT 400 cc
[2019-01-15] MEDS: MethylPREDNISolone 40 MG/ML VIAL IVP SCH ×2 (05:33→18:59)
[2019-01-15] MEDS: Heparin 25,000 UNIT/250 ML D5W 25,000 UNIT/250 ML IV.SOLN IVC SCH ×2 (05:33→19:10)
[2019-01-15] MEDS: Chlorhexidine Rinse 15 ML MOUTHWASH MM SCH ×2 (08:32→19:54)
[2019-01-15] MEDS: Aspirin 81 MG TAB.CHEW GTUBE SCH (08:32)
[2019-01-15] MEDS: Pantoprazole 40 MG VIAL IVP SCH (08:32)
--- NOTE | 2019-01-15 08:43 | Cardiothoracic Consult Note ---
Date of Encounter: 01/15/19 Time of Encounter: 08:39 Assessment and Plan (1) Giant bullous emphysema Current Visit: Yes Status: Acute The assessment and plan as outlined above was discussed with the patient and/or family members who expressed understanding and agreement. All questions were answered. I have reviewed the films and spoken in consultation with pulmonary critical care medicine. I will outlined plan of weaning the patient from the ventilator for this acute hypoxic event and getting the patient extubated. I would move forward then with cardiac intervention with angiography rule out any coronary artery disease. Elevated troponin may be due to the acute hypoxic episode and stress on the heart versus coronary artery disease. If there is coronary artery disease, the patient should have non-coated stents place so that surgery could be performed to prevent a second acute hypoxic respiratory failure. The overall risk of surgery is elevated, however without surgery, a second hypoxic respiratory event could be fatal. An risk stratifying her heart disease versus lung disease, lung disease carries the most of acute and long-term . Noncoated stents would allow us to provide safe means of performing surgery. (2) Acute respiratory failure with hypoxia Current Visit: Yes Status: Acute The assessment and plan as outlined above was discussed with the patient and/or family members who expressed understanding and agreement. All questions were answered. (3) NSTEMI (non-ST elevated myocardial infarction) Current Visit: Yes Status: Acute The assessment and plan as outlined above was discussed with the patient and/or family members who expressed understanding and agreement. All questions were answered. - History of Present Illness Consult date: 01/15/19 Requesting physician: Fermin Montiel Consult reason: pnthx Chief complaint: sob History of present illness: Ms. Andre is a 68 year old female who presented to an outside facility status post acute onset shortness of breath followed by desaturation into the 70s and lidocaine she is unresponsive in these. She was transferred to [facility] with a moderately large right pneumothorax that has nearly resolved with chest tube placement. Patient also had a CT scan of the chest performed demonstrating large single bleb in both the right and left lung. In talking with the referring physician, the patient has a long history of COPD with a E the 1 of 0.48 L. She has completed pulmonary rehabilitation in the last year and with that has gained exercise tolerance, and endurance, and weight. Past Med Surg Social Fam HX - Past Medical History Medical history: COPD Additional medical history: unknown and no family is present - Past Surgical History Additional surgical history: unknown/no family is present - Social History Smoking Status: Former smoker - Family History Father Cause of : CAD 60's Sister Cause of : CAD 63 Medications and Allergies Albuterol Sulfate [Ventolin Hfa] 2 inh PO Q4H PRN 01/14/19 [History] Budesonide/Formoterol 160/4.5 [Symbicort 160/4.5] 2 inh IH BIDR 01/14/19 [History] Tiotropium [place] [Spiriva Respimat] 2 inh IH DAILY 01/14/19 [History] Allergy/AdvReac Type Severity Reaction Status Date / Time No Known Allergies Allergy Unverified 10/15/16 12:12 All Systems Review: The remainder of the systems were reviewed and are negative Physical Examination Vital Signs, Last 4 Hours Temp Pulse Resp BP Pulse Ox 01/15/19 08:00 98.8 F 01/15/19 07:29 21 93 01/15/19 07:00 100 13 99/70 92 01/15/19 06:00 98 15 81/67 92 01/15/19 05:46 14 83/67 93 01/15/19 05:00 93 14 73/53 92 General: Other (intubated and sedated ) HEENT: Atraumatic, Normocephaly, Trachea midline Neck: No JVD Cardiac: Reg Rate and Rhythm, Normal S1 and S2 Lungs: Decreased breath sounds Neuro: Other (sedated ) Vascular: Normal capillary refill Abdomen: Soft, Non-tender Extremities: No Clubbing, No Cyanosis, No Edema, Other (decreased pulses iin the popliteal and feet. ecchymosis on the arms and hands ) Results 01/15/19 01:41 01/15/19 01:41 Lab Results, Last 24 hours 01/14/19 01/14/19 01/15/19 09:26 09:26 01:41 WBC 11.4 H 10.6 Hgb 13.4 D 12.6 Hct 43.7 40.7 Plt Count 180 161 Sodium 139 Potassium 4.2 Chloride 107 Carbon Dioxide 20 L BUN 10 Creatinine 0.70 Glucose 138 H Calcium 8.7 Magnesium 2.0 Total Bilirubin 0.4 AST 27 ALT 13 Alkaline Phosphatase 94 Troponin I 1.03 H* 01/15/19 01:41 WBC Hgb Hct Plt Count Sodium 141 Potassium 4.3 Chloride 109 H Carbon Dioxide 18 L BUN 11 Creatinine 0.65 Glucose 127 H Calcium 8.4 L Magnesium 2.1 Total Bilirubin 0.3 AST 23 ALT 12 Alkaline Phosphatase 73 Troponin I 0.54 H* - Imaging Chest Xray: image reviewed Consult Discharge Plan - Plan Referrals: Lissette Chen CNP [Primary Care Provider] -
--- NOTE | 2019-01-15 09:00 | Pulmonology Progress Note ---
Date of Encounter: 01/15/19 Time of Encounter: 07:00 Assessment and Plan (1) Acute respiratory failure with hypoxia Current Visit: Yes Status: Acute She remains on the vent was very mild respiratory acidosis given underlying COPD and we will allow for permissive hypercapnia now to avoid increased peak and plateau pressures related to either increasing minute ventilation or tidal volume/tidal volume. She is on a candidate first 20 is breathing trial right now because she is too sedated with and when sedation was attempted be lifted the patient is noted desaturate requiring increased FiO2 support. She has a persistent pneumothorax I have increased the negative pressure suction. Because this is a chest plain film it is it is hard to know exactly how much of this is persistent pneumothorax or perhaps some degree of her underlying bullous emphy sema although comparing chest film the chest film it appears that the pneumothorax is persistent and possibly slightly worse. Admit to follow this up with a repeat chest x-ray later this morning. She may need placement of a CT- guided chest tube for aspiration of the remaining pneumothorax or may take her being off positive pressure before and pneumothorax will fully resolve. Additionally I spoke directly with the cardiothoracic surgeon regarding her bullous emphysema and a life-threatening pneumothorax. He states that in the acute setting with underlying cardiomyopathy which appears to be new with plan for cardiac catheterization that he would recommend a conservative approach which is quite reasonable.. (2) COPD exacerbation Current Visit: Yes Status: Acute Continue IV steroids and bronchodilators. (3) Acute encephalopathy Current Visit: Yes Status: Acute This is likely secondary to respiratory failure she is currently sedated we will attempt to wean sedation as tolerated for goal [place] 2-3 today (4) Cardiomyopathy Current Visit: Yes Status: Acute Acute cardiomyopathy which may be ischemic in nature versus Dr. Kiana Medley left heart catheterization planned Qualifiers: Cardiomyopathy type: unspecified Qualified Code(s): I42.9 - Cardiomyopathy, unspecified (5) NSTEMI (non-ST elevated myocardial infarction) Current Visit: Yes Status: Acute Patient is on ACS protocol cardiology is evaluating the patient plan for left heart catheterization beta shani on hold because of hypotensive episodes. Can continue statin and aspirin (6) Giant bullous emphysema Current Visit: Yes Status: Acute We will need outpatient evaluation with cardiothoracic surgery for definitive management I spent 32min of Critical Care time with this patient. It involved decision making of high complexity to assess, manipulate, and support vital organ system failure and/or to prevent further life threatening deterioration of the patient's condition. The time involved in the performance of separately reportable procedures was not counted toward critical care time. Subjective Principal diagnosis: Respiratory Failure Interval history: Priya remains on the vent. Borderline hypotensive overnight again requiring a bolus blood pressures improved slightly. She remains sedated on the ventilator persistent pneumothorax and checks x-ray but no clear air leak on examination. Evaluated by cardiology and plan for left heart catheterization or more stable to determine etiology of acute cardiomyopathy noting the pattern could be consistent with tachycardia [place] Objective PUL Vital signs: Last Vital Signs Temp 98.8 F 01/15/19 08:00 Pulse 100 01/15/19 07:00 Resp 21 01/15/19 07:29 BP 99/70 01/15/19 07:00 Pulse Ox 93 01/15/19 07:29 GEN: Intubated and sedated she is unable to follow commands HEENT: Endotracheal tube noted in satisfactory position pupils reactive to light Resp: Air entry bilaterally but diminished. She has a right chest tube into the dressing down there is noted old dried blood surrounding the chest tube insertion site otherwise appears to be appropriately positioned there is no air leak in the chamber Cardio: Regular rate and rhythm no audible murmur GI: Abdomen is soft there is no grimace to deep palpation bowel sounds are present Ext: Distal pulses easily palpable no lower extremity edema noted Skin: No rash noted Neuro:she does have spontaneous movement and does withdraw to pain Psych: Ventilator Settings Ventilator Settings: Ventilator Settings, Last 8 Hours Ventilator Tidal Volume 400 Setting Ventilator Tidal Volume 400 Setting Ventilator Tidal Volume 400 Setting Ventilator Tidal Volume 400 Setting Ventilator Tidal Volume 400 Setting Ventilator Tidal Volume 400 Setting Ventilator Tidal Volume 400 Setting Ventilator Tidal Volume 400 Setting Ventilator Tidal Volume 400 Setting Ventilator Tidal Volume 400 Setting Ventilator Tidal Volume 400 Setting Ventilator Respiratory Rate 10 Setting Ventilator Respiratory Rate 10 Setting Ventilator Respiratory Rate 10 Setting Ventilator Respiratory Rate 10 Setting Ventilator Respiratory Rate 10 Setting Ventilator Respiratory Rate 10 Setting Ventilator Respiratory Rate 10 Setting Ventilator Respiratory Rate 10 Setting Ventilator Respiratory Rate 10 Setting Ventilator Respiratory Rate 10 Setting Ventilator Respiratory Rate 10 Setting Actual Respiratory Rate 15 Actual Respiratory Rate 13 Actual Respiratory Rate 15 Actual Respiratory Rate 17 Actual Respiratory Rate 14 Actual Respiratory Rate 12 Actual Respiratory Rate 10 Actual Respiratory Rate 15 Actual Respiratory Rate 12 Actual Respiratory Rate 12 Positive End Expiratory 0 Pressure Positive End Expiratory 0 Pressure Positive End Expiratory 0 Pressure Positive End Expiratory 0 Pressure Positive End Expiratory 0 Pressure Positive End Expiratory 0 Pressure Positive End Expiratory 0 Pressure Positive End Expiratory 0 Pressure Positive End Expiratory 0 Pressure Positive End Expiratory 0 Pressure Positive End Expiratory 0 Pressure Peak Inspiratory Airway 22 Pressure Peak Inspiratory Airway 31 Pressure Peak Inspiratory Airway 34 Pressure Peak Inspiratory Airway 28 Pressure Peak Inspiratory Airway 25 Pressure Peak Inspiratory Airway 27 Pressure Peak Inspiratory Airway 33 Pressure Peak Inspiratory Airway 12 Pressure Peak Inspiratory Airway 12 Pressure Results - Laboratory Findings CBC and BMP: 01/15/19 01:41 01/15/19 01:41 ABG ABG pH 7.29 pH Units (7.32-7.45) L 01/15/19 04:57 ABG pCO2 53 mmHg (35-45) H 01/15/19 04:57 ABG pO2 67 mmHg (85-104) L 01/15/19 04:57 ABG O2 Saturation 90 % (95-98) L 01/15/19 04:57 PT/INR, D-dimer PT 10.3 Seconds (9.4-12.1) 01/13/19 20:29 D-Dimer 1026 ng/mLFEU (0-500) H 01/13/19 20:29 Abnormal lab findings: Abnormal lab results WBC 11.4 K/mcL (4.3-11.1) H 01/14/19 09:26 Hct 46.8 % (35.3-44.9) H 01/13/19 23:51 MCV 100.5 fL (83.0-100.0) H 01/14/19 09:26 MCHC 31.0 g/dL (31.6-35.5) L 01/15/19 01:41 MPV 12.5 fL (9.4-12.4) H 01/13/19 23:51 Neutrophils # 9.6 K/mcL (1.6-8.9) H 01/15/19 01:41 Lymphocytes # 0.5 K/mcL (0.6-4.6) L 01/15/19 01:41 Nucleated RBCs/100 WBC 0.3 /100 WBC (0) H 01/13/19 23:51 Platelet Estimate Decreased (Normal) L 01/15/19 01:41 Clumped Platelets Few (Not Present) A 01/13/19 23:51 Immature Plt Fraction 13.1 % (1.1-6.1) H 01/13/19 23:51 D-Dimer 1026 ng/mLFEU (0-500) H 01/13/19 20:29 Heparin Anti-Xa, Unfract 0.24 IU/mL (0.30-0.70) L 01/14/19 18:19 ABG pH 7.29 pH Units (7.32-7.45) L 01/15/19 04:57 ABG pCO2 53 mmHg (35-45) H 01/15/19 04:57 ABG pO2 67 mmHg (85-104) L 01/15/19 04:57 ABG Total CO2 27 mEq/L (20-26) H 01/15/19 04:57 ABG O2 Saturation 90 % (95-98) L 01/15/19 04:57 ABG Base Excess -3 mEq/L (-2 to 3) L 01/14/19 04:16 Chloride 109 mEq/L (98-107) H 01/15/19 01:41 Carbon Dioxide 18 mEq/L (23-29) L 01/15/19 01:41 Glucose 127 mg/dL (70-105) H 01/15/19 01:41 POC Glucose 113 mg/dL (70-99) H 01/15/19 05:42 Lactic Acid 3.0 mmol/L (0.5-2.2) H 01/14/19 09:26 Calcium 8.4 mg/dL (8.6-10.3) L 01/15/19 01:41 Troponin I 0.54 ng/mL (< 0.04) H* 01/15/19 01:41 B-Natriuretic Peptide 121 pg/mL (Less than 100) H 01/13/19 20:07 Serum Total Protein 5.6 g/dL (6.4-8.9) L 01/15/19 01:41 Globulin 2.1 g/dL (2.4-3.5) L 01/15/19 01:41 Lipase 7 Units/L (11-82) L 01/13/19 20:07 Procalcitonin 1.89 ng/mL (0.00-0.15) H 01/14/19 09:26 Urine Clarity Turbid (Clear) A 01/14/19 02:40 Urine Protein 30 mg/dL (Neg-Trace) H 01/14/19 02:40 Urine Ketones 80 mg/dL (Negative) H 01/14/19 02:40 Urine Blood Large (Negative) H 01/14/19 02:40 Urine Bilirubin Small (Negative) H 01/14/19 02:40 Ur Leukocyte Esterase Trace (Negative) H 01/14/19 02:40 Urine Microscopic RBC TNTC per hpf (0-3) H 01/14/19 02:40 Urine Microscopic WBC 15-30 per hpf (0-3) H 01/14/19 02:40 Ur Squamous Epith Cells Many per lpf (None-Few) H 01/14/19 02:40 Ur Culture Indicated? YES (NO) A 01/14/19 02:40 - Microbiology Findings Microbiology Findings: Microbiology, Last 48 Hours 01/14/19 02:40 Urine Culture - Final Urine,Clean Catch No growth. 01/13/19 22:00 Blood Culture - Preliminary Peripheral Venipuncture Culture is incubating and being continuously monitored for growth. Final report to follow. - Clinical Findings Intake & Output: Intake & Output 01/14/19 01/15/19 01/15/19 23:59 07:59 15:59 Intake Total 240 / 665.0 625 / 625 0 / 625 Output Total 357 / 1002 204 / 304 100 / 304 Balance -117 / -337.0 421 / 321 -100 / 321 Weight 55.3 kg - VTE Reasons for not Prescribing Prophylaxis: Not indicated-Anticoagulated or INR therapeutic Consult Discharge Plan - Plan Referrals: Lissette Chen ANALYSIS INTERN [Primary Care Provider] -
[2019-01-15] MEDS: Dexmedetomidine HCl 400 MCG/100 ML MLS IVC SCH ×2 (09:41→19:30)
[2019-01-15] MEDS: FentaNYL (PF) 1,000 MCG in 0.9 % Sodium Chloride 80 ML IVC SCH (10:32)
--- NOTE | 2019-01-15 13:43 | Cardiology Progress Note ---
Date of Encounter: 01/15/19 Time of Encounter: 10:30 Assessment and Plan (1) NSTEMI (non-ST elevated myocardial infarction) Current Visit: Yes Status: Acute Type I vs type II CO in the setting of respiratory failure, COPD. Troponin up to 1.03 now 0.54. EKG with Inverted T waves, could represent ischemia. TTE shows newly reduced EF at 20-25% compared to 2017. WMA suggest possible takostubo. Cardiac risk factors include tobacco use and family history. Recommend LHC once stable from respiratory standpoint. Continue heparin gtt. Asa, statin, bb. Cardiology will monitor peripherally over weekend and re-assess Friday. Call with questions. (2) Cardiomyopathy Current Visit: Yes Status: Acute Acute systolic CHF. No overt CHF on exam. EF 20-25%. Newly reduced. CXR shows pnuemothorax on right and clear lung left. Appears euvolemic. Ischemic work-up recommended once able. Caution with IV fluid. Strict I&O. Daily weights. Continue low dose bb and aceI as tolerated. AceI held today due to hypotension this morning. Discussed with RN, pt required increased sedation and hypotenion may be secondary to sedation. Will continue lisinopril for now. Qualifiers: Cardiomyopathy type: unspecified Qualified Code(s): I42.9 - Cardiomyopathy, unspecified Discussion w patient/family: The assessment and plan as outlined above was discussed with the patient and/or family members who expressed understanding and agreement. All questions were answered. Thank you for involving us in the care of your patient. Please call with any questions. Subjective Principal diagnosis: Respiratory Failure Objective Vital Signs, Last 4 Hours Temp Pulse Resp BP Pulse Ox 01/15/19 12:00 98 13 80/59 92 01/15/19 11:34 12 94 01/15/19 11:04 98.5 F 01/15/19 11:00 92 16 113/72 94 01/15/19 10:00 92 12 82/56 93 Results 01/15/19 01:41 01/15/19 01:41 Lab Results 01/15/19 01/15/19 01:41 01:41 WBC 10.6 Hgb 12.6 Hct 40.7 Plt Count 161 Sodium 141 Potassium 4.3 Chloride 109 H Carbon Dioxide 18 L BUN 11 Creatinine 0.65 Glucose 127 H Calcium 8.4 L Magnesium 2.1 Total Bilirubin 0.3 AST 23 ALT 12 Alkaline Phosphatase 73 Troponin I 0.54 H* - VTE Reasons for not Prescribing Prophylaxis: Not indicated-Anticoagulated or INR therapeutic Consult Discharge Plan - Plan Referrals: Lissette Chen, ARIANE [Primary Care Provider] -
[2019-01-15 15:44] LABS: Hematocrit 38.6 % (35.3-44.9); Hemoglobin 11.9 g/dL (11.5-15.4)
[2019-01-15] MEDS: Cefepime HCl 2,000 MG in Water for inj. (sterile) 20 ML IVP SCH ×2 (16:36→23:15)
[2019-01-15] MEDS: Doxycycline 100 MG in 0.9 % Sodium Chloride Mini Bag 100 ML IVPB SCH (19:00)
[2019-01-16] MEDS: Ipratropium/Albuterol Neb 3 ML IH SCH ×7 (00:24→23:43)
[2019-01-16] MEDS: Piperacillin/Tazobactam 3.375 GM in 0.9 % Sodium Chloride Mini Bag 100 ML IVPB SCH ×3 (00:29→17:00)
[2019-01-16] MEDS: Dexmedetomidine HCl 400 MCG/100 ML MLS IVC SCH ×3 (01:06→20:43)
[2019-01-16] MEDS: Artificial Tears SOLN 15 ML BOTTLE BOTH EYES SCH ×5 (04:30→20:22)
[2019-01-16] MEDS: MethylPREDNISolone 40 MG/ML VIAL IVP SCH ×2 (05:27→17:34)
[2019-01-16] MEDS: Doxycycline 100 MG in 0.9 % Sodium Chloride Mini Bag 100 ML IVPB SCH ×2 (05:27→17:34)
[2019-01-16] MEDS: FentaNYL (PF) 1,000 MCG in 0.9 % Sodium Chloride 80 ML IVC SCH (05:30)
[2019-01-16 05:31] LABS: ABG Base Excess -2 mEq/L (-2 to 3); ABG HCO3 25 mEq/L (21-27); ABG Oxygen Saturation 96 % (95-98); ABG PCO2 53 mmHg (35-45); ABG PH 7.29 pH Units (7.32-7.45); ABG PO2 94 mmHg (85-104); ABG TCO2 27 mEq/L (20-26); Blood Gas Modality ASSIST CONTROL; Blood Gas PEEP 0 cm H2O; Blood Gas VT 400 cc
--- NOTE | 2019-01-16 06:50 | Pulmonology Progress Note ---
Date of Encounter: 01/16/19 Time of Encounter: 06:50 Assessment and Plan (1) Acute respiratory failure with hypoxia Current Visit: Yes Status: Acute She remains on the vent was very mild respiratory acidosis given underlying COPD and we will allow for permissive hypercapnia now to avoid increased peak and plateau pressures related to either increasing minute ventilation or tidal volume/tidal volume. She is not a candidate SBT right now because she is too sedated with and when sedation was attempted be lifted the patient is noted desaturate requiring increased FiO2 support. She remains on a low tidal restrictive ventilatory strategy I have held any positive end expiratory pressure because of underlying bullous emphysema. Left toe pressures are acceptable today (2) Secondary spontaneous pneumothorax Current Visit: Yes Status: Acute Chest tube was not satisfactory position will discuss with IR likely need CT- guided placement of chest tube given underlying emphysema (3) COPD exacerbation Current Visit: Yes Status: Acute Continue IV steroids and bronchodilators. (4) Acute encephalopathy Current Visit: Yes Status: Acute This is likely secondary to respiratory failure she is currently sedated we will attempt to wean sedation as tolerated for goal Ann 2-3 today (5) Cardiomyopathy Current Visit: Yes Status: Acute Acute cardiomyopathy which may be ischemic in nature versus Dr. Kiana Medley left heart catheterization planned Qualifiers: Cardiomyopathy type: unspecified Qualified Code(s): I42.9 - Cardiomyopathy, unspecified (6) NSTEMI (non-ST elevated myocardial infarction) Current Visit: Yes Status: Acute Patient is on ACS protocol cardiology is evaluating the patient plan for left heart catheterization beta shani on hold because of hypotensive episodes. Can continue statin and aspirin (7) Giant bullous emphysema Current Visit: Yes Status: Acute We will need outpatient evaluation with cardiothoracic surgery for definitive management I spent 32min of Critical Care time with this patient. It involved decision making of high complexity to assess, manipulate, and support vital organ system failure and/or to prevent further life threatening deterioration of the patient's condition. The time involved in the performance of separately reportable procedures was not counted toward critical care time. Subjective Principal diagnosis: Respiratory Failure Interval history: Priya remains on the vent. Hypotension has improved after switching off propofol. She has had clinically worsening respiratory status now breathing 30- 40 times a minute when she is not deeply sedated. Oxygen saturation has stayed somewhat stable at 5060% FiO2 in the mid 90s. Chest tube noted to be was side- port outside of the pleural cavity pneumothorax is persistent Objective PUL Vital signs: Last Vital Signs Temp 98.2 F 01/16/19 04:00 Pulse 84 01/16/19 06:00 Resp 15 01/16/19 06:00 BP 125/75 01/16/19 06:00 Pulse Ox 97 01/16/19 06:00 GEN: She is able to make eye contact with me and nod her head but then quickly goes to sleep HEENT: Endotracheal tube noted in satisfactory position pupils are reactive to light Resp: Diminished breath sounds bilaterally faint air entry noted however. Right chest tube noted Cardio: Regular rate and rhythm no audible murmur GI: Abdomen is soft nontender nondistended bowel sounds are present Ext: No lower extremity edema Skin: No rash or purpura noted Neuro: She has spontaneous movement of all extremities she does not consistently follow commands there is no gross neurological to sit on examination however Psych: Anxious appearing Ventilator Settings Ventilator Settings: Ventilator Settings, Last 8 Hours Ventilator Tidal Volume 400 Setting Ventilator Tidal Volume 400 Setting Ventilator Tidal Volume 400 Setting Ventilator Tidal Volume 400 Setting Ventilator Tidal Volume 400 Setting Ventilator Tidal Volume 400 Setting Ventilator Tidal Volume 400 Setting Ventilator Tidal Volume 400 Setting Ventilator Tidal Volume 400 Setting Ventilator Tidal Volume 400 Setting Ventilator Tidal Volume 400 Setting Ventilator Respiratory Rate 10 Setting Ventilator Respiratory Rate 10 Setting Ventilator Respiratory Rate 10 Setting Ventilator Respiratory Rate 10 Setting Ventilator Respiratory Rate 10 Setting Ventilator Respiratory Rate 10 Setting Ventilator Respiratory Rate 10 Setting Ventilator Respiratory Rate 10 Setting Ventilator Respiratory Rate 10 Setting Ventilator Respiratory Rate 10 Setting Ventilator Respiratory Rate 10 Setting Actual Respiratory Rate 15 Actual Respiratory Rate 12 Actual Respiratory Rate 12 Actual Respiratory Rate 15 Actual Respiratory Rate 14 Actual Respiratory Rate 12 Actual Respiratory Rate 13 Actual Respiratory Rate 12 Actual Respiratory Rate 13 Actual Respiratory Rate 12 Positive End Expiratory 0 Pressure Positive End Expiratory 0 Pressure Positive End Expiratory 0 Pressure Positive End Expiratory 0 Pressure Positive End Expiratory 0 Pressure Positive End Expiratory 0 Pressure Positive End Expiratory 0 Pressure Positive End Expiratory 0 Pressure Positive End Expiratory 0 Pressure Positive End Expiratory 0 Pressure Positive End Expiratory 0 Pressure Peak Inspiratory Airway 23 Pressure Peak Inspiratory Airway 19 Pressure Peak Inspiratory Airway 18 Pressure Peak Inspiratory Airway 25 Pressure Peak Inspiratory Airway 25 Pressure Peak Inspiratory Airway 25 Pressure Peak Inspiratory Airway 17 Pressure Peak Inspiratory Airway 26 Pressure Peak Inspiratory Airway 24 Pressure Peak Inspiratory Airway 27 Pressure Results - Laboratory Findings CBC and BMP: 01/16/19 05:53 01/16/19 05:53 ABG ABG pH 7.29 pH Units (7.32-7.45) L 01/16/19 05:28 ABG pCO2 53 mmHg (35-45) H 01/16/19 05:28 ABG pO2 94 mmHg (85-104) 01/16/19 05:28 ABG O2 Saturation 96 % (95-98) 01/16/19 05:28 PT/INR, D-dimer PT 10.3 Seconds (9.4-12.1) 01/13/19 20:29 D-Dimer 1026 ng/mLFEU (0-500) H 01/13/19 20:29 Abnormal lab findings: Abnormal lab results WBC 11.4 K/mcL (4.3-11.1) H 01/14/19 09:26 Hct 46.8 % (35.3-44.9) H 01/13/19 23:51 MCV 100.5 fL (83.0-100.0) H 01/14/19 09:26 MCHC 31.0 g/dL (31.6-35.5) L 01/15/19 01:41 MPV 12.5 fL (9.4-12.4) H 01/13/19 23:51 Neutrophils # 9.6 K/mcL (1.6-8.9) H 01/15/19 01:41 Lymphocytes # 0.5 K/mcL (0.6-4.6) L 01/15/19 01:41 Nucleated RBCs/100 WBC 0.3 /100 WBC (0) H 01/13/19 23:51 Platelet Estimate Decreased (Normal) L 01/15/19 01:41 Clumped Platelets Few (Not Present) A 01/13/19 23:51 Immature Plt Fraction 13.1 % (1.1-6.1) H 01/13/19 23:51 D-Dimer 1026 ng/mLFEU (0-500) H 01/13/19 20:29 Heparin Anti-Xa, Unfract 0.24 IU/mL (0.30-0.70) L 01/14/19 18:19 ABG pH 7.29 pH Units (7.32-7.45) L 01/16/19 05:28 ABG pCO2 53 mmHg (35-45) H 01/16/19 05:28 ABG pO2 67 mmHg (85-104) L 01/15/19 04:57 ABG Total CO2 27 mEq/L (20-26) H 01/16/19 05:28 ABG O2 Saturation 90 % (95-98) L 01/15/19 04:57 ABG Base Excess -3 mEq/L (-2 to 3) L 01/14/19 04:16 Chloride 109 mEq/L (98-107) H 01/15/19 01:41 Carbon Dioxide 18 mEq/L (23-29) L 01/15/19 01:41 Glucose 127 mg/dL (70-105) H 01/15/19 01:41 POC Glucose 135 mg/dL (70-99) H 01/16/19 05:22 Lactic Acid 3.0 mmol/L (0.5-2.2) H 01/14/19 09:26 Calcium 8.4 mg/dL (8.6-10.3) L 01/15/19 01:41 Troponin I 0.54 ng/mL (< 0.04) H* 01/15/19 01:41 B-Natriuretic Peptide 121 pg/mL (Less than 100) H 01/13/19 20:07 Serum Total Protein 5.6 g/dL (6.4-8.9) L 01/15/19 01:41 Globulin 2.1 g/dL (2.4-3.5) L 01/15/19 01:41 Lipase 7 Units/L (11-82) L 01/13/19 20:07 Procalcitonin 1.89 ng/mL (0.00-0.15) H 01/14/19 09:26 Urine Clarity Turbid (Clear) A 01/14/19 02:40 Urine Protein 30 mg/dL (Neg-Trace) H 01/14/19 02:40 Urine Ketones 80 mg/dL (Negative) H 01/14/19 02:40 Urine Blood Large (Negative) H 01/14/19 02:40 Urine Bilirubin Small (Negative) H 01/14/19 02:40 Ur Leukocyte Esterase Trace (Negative) H 01/14/19 02:40 Urine Microscopic RBC TNTC per hpf (0-3) H 01/14/19 02:40 Urine Microscopic WBC 15-30 per hpf (0-3) H 01/14/19 02:40 Ur Squamous Epith Cells Many per lpf (None-Few) H 01/14/19 02:40 Ur Culture Indicated? YES (NO) A 01/14/19 02:40 - Microbiology Findings Microbiology Findings: Microbiology, Last 48 Hours 01/13/19 22:30 Blood Culture - Preliminary Peripheral Venipuncture Culture is incubating and being continuously monitored for growth. Final report to follow. 01/14/19 02:40 Urine Culture - Final Urine,Clean Catch No growth. 01/13/19 22:00 Blood Culture - Preliminary Peripheral Venipuncture Culture is incubating and being continuously monitored for growth. Final report to follow. - Diagnostic Findings Chest x-ray: report reviewed, image reviewed - Clinical Findings Intake & Output: Intake & Output 01/15/19 01/15/19 01/16/19 15:59 23:59 07:59 Intake Total 160 / 1205 420 / 1205 420 / 420 Output Total 255 / 754 140 / 754 325 / 325 Balance -95 / 451 280 / 451 95 / 95 Weight 59.1 kg - VTE Reasons for not Prescribing Prophylaxis: Not indicated-Anticoagulated or INR therapeutic Consult Discharge Plan - Plan Referrals: Lissette Chen RANCH MANAGER [Primary Care Provider] -
[2019-01-16 06:58] LABS: Basophils % 0.1 %; Hematocrit 37.3 % (35.3-44.9); Hemoglobin 11.4 g/dL (11.5-15.4); Immature Granulocytes % 0.9 % (0-4); Lymphocytes # 0.5 K/mcL (0.6-4.6); Lymphocytes % 3.9 %; Mean Corpuscular HGB Conc 30.6 g/dL (31.6-35.5); Mean Corpuscular Hemoglobin 30.3 pg (28.0-33.3); Mean Corpuscular Volume 99.2 fL (83.0-100.0); Mean Platelet Volume 13.1 fL (9.4-12.4); Monocytes # 0.9 K/mcL (0.0-1.3); Monocytes % 7.4 %; Neutrophils # 10.6 K/mcL (1.6-8.9); Platelet Count 138 K/mcL (140-400); Red Blood Count 3.76 M/mcL (3.82-4.97); Red Cell Distribution Width 13.7 % (11.5-14.5); Segmented Neutrophils % 87.7 %; White Blood Count 12.1 K/mcL (4.3-11.1)
[2019-01-16 07:19] LABS: Alanine Aminotransferase 13 Units/L (7-52); Albumin 3.5 g/dL (3.5-5.7); Albumin/Globulin Ratio 1.6 (1.1-2.2); Alkaline Phosphatase 64 Units/L (34-104); Aspartate Amino Transferase 19 Units/L (13-39); BUN/Creatinine Ratio 35 (6-26); Bilirubin,Total 0.3 mg/dL (0.3-1.0); Blood Urea Nitrogen 32 mg/dL (8-23); Calcium 8.5 mg/dL (8.6-10.3); Carbon Dioxide 25 mEq/L (23-29); Chloride 107 mEq/L (98-107); Globulin 2.2 g/dL (2.4-3.5); Glucose 153 mg/dL (70-105); Magnesium 2.4 mg/dL (1.6-2.6); Osmolality,Calculated 302 (280-300); Phosphorous 4.1 mg/dL (2.7-4.5); Potassium 4.3 mEq/L (3.5-5.1); Sodium 141 mEq/L (136-145); Total Protein 5.7 g/dL (6.4-8.9); eGFR For African Americans > 60 (> 60); eGFR For Non-African Americans > 60 (> 60)
[2019-01-16] MEDS ORDERED: *HR* Midazolam HCl 2 MG/2 ML VIAL IVP PRN (09:39)
--- NOTE | 2019-01-16 09:42 | IR Procedure Note ---
Date of procedure: 01/16/19 Consent Obtained: Verbal consent Local anesthetic: Lidocaine 1% Was there an bar assistant present: No Estimated blood loss (cc): 0 Complications: None; Tolerated procedure well Indications: Right PTX Procedure Performed: Right chest tube placement Site/Technique: Right chest tube placed bedside Results/Findings (any specimens removed): 10 kiswahili chest tube placed Post Procedure Treatment Plan: Chest tube to suction Specimen: none
[2019-01-16] MEDS: Pantoprazole 40 MG VIAL IVP SCH (09:48)
[2019-01-16] MEDS: Cefepime HCl 2,000 MG in Water for inj. (sterile) 20 ML IVP SCH ×3 (09:49→23:36)
[2019-01-16] MEDS: Aspirin 81 MG TAB.CHEW GTUBE SCH (09:50)
[2019-01-16] MEDS: Chlorhexidine Rinse 15 ML MOUTHWASH MM SCH ×2 (10:01→20:26)
--- NOTE | 2019-01-16 10:22 | Cardiothoracic Progress Note ---
Date of Encounter: 01/16/19 Time of Encounter: 09:20 Discussion with patient/family: The chest x-ray was discussed with pulmonary. IR will plan to place a CT-guided chest tube. Bedside chest tube would risk rupture of large pleural bleb. CT guidance would also assist in evaluating whether residual pneumothorax is present versus large bleb. Troponin decreasing. Surgical plan in the future once the patient recovers from her acute illness and cardiovascular status is evaluated. - Subjective Interval history: The patient remains intubated and sedated. She is on no vasopressor support currently. She is on Precedex and fentanyl for sedation. Vital Signs, Last 4 Hours Temp Pulse Resp BP Pulse Ox 01/16/19 09:35 17 145/83 97 01/16/19 07:41 97.9 F 01/16/19 07:37 14 133/78 96 01/16/19 07:00 87 27 87/61 96 Clinical Data, last 8 Hours Output, Chest Tube Drainage 0 Amount [Right Mid-Axillary Chest #1] Weight 01/14/19 01/15/19 01/16/19 23:59 23:59 23:59 Weight 54.7 kg 55.3 kg 59.1 kg - Physical Examination General: Other (Sedated with labored breathing) HEENT: Atraumatic, Normocephaly Neck: No JVD Cardiac: Reg Rate and Rhythm Chest tubes: Other (There is no fluctuation and chest tube) Neuro: Other (Sedated) Vascular: Normal capillary refill - Labs 01/16/19 05:53 01/16/19 05:53 Lab Results, Last 24 hours 01/15/19 01/16/19 01/16/19 15:13 05:53 05:53 WBC 12.1 H Hgb 11.9 11.4 L Hct 38.6 37.3 Plt Count 138 L Sodium 141 Potassium 4.3 Chloride 107 Carbon Dioxide 25 BUN 32 H Creatinine 0.92 Glucose 153 H Calcium 8.5 L Magnesium 2.4 Total Bilirubin 0.3 AST 19 ALT 13 Alkaline Phosphatase 64 - Imaging Chest Xray: image reviewed (The chest tube proximal hole is outside the pleural cavity. Stable apical pneumothorax versus large bleb.) - VTE Reasons for not Prescribing Prophylaxis: Not indicated-Anticoagulated or INR therapeutic Consult Discharge Plan - Plan Referrals: Lissette Chen CNP [Primary Care Provider] -
[2019-01-17] MEDS: Piperacillin/Tazobactam 3.375 GM in 0.9 % Sodium Chloride Mini Bag 100 ML IVPB SCH ×3 (01:01→17:34)
[2019-01-17] MEDS: Artificial Tears SOLN 15 ML BOTTLE BOTH EYES SCH ×7 (01:02→23:13)
[2019-01-17 01:19] LABS: ABG Base Excess 0 mEq/L (-2 to 3); ABG HCO3 26 mEq/L (21-27); ABG Oxygen Saturation 97 % (95-98); ABG PCO2 43 mmHg (35-45); ABG PH 7.38 pH Units (7.32-7.45); ABG PO2 91 mmHg (85-104); ABG TCO2 27 mEq/L (20-26); Blood Gas Modality BiLevel
--- NOTE | 2019-01-17 01:37 | Event Note ---
Date of Encounter: 01/17/19 Time of Encounter: 01:00 Notified by patient's nurse regarding worsening subcutaneous emphysema. Patient also tripoding in the bed. She had a chest tube replaced today, and is currently on BiPAP after being extubated. Vital signs stable. Stat chest x-ray obtained, [facility] notified us due to new finding of a progressive extensive right chest wall and supraclavicular emphysema with extension into the mediastinum (pneumomediastinum). She also had a small right pneumothorax, 18 mm from the chest wall, pigtail catheter remains in place unchanged from prior exam. I contacted on-call cardiothoracic surgery, Dr. Lopez who had also evaluated the patient earlier. He recommended that we ensure that the patient's chest tube tubing was not kinked, and increase the suction to -40. He also requested a stat ABG which was obtained. The results of the ABG: PH 7.384, PCO2 42.7, PaO2 91.2. The tubing was found to be unkinked, and no air leak present. The suction was also increased to -40. These results were conveyed to Dr. Lopez. He stated that the patient appears stable, he reviewed the imaging in the computer system. Recommended repeat x-ray in the morning, and keep the patient at -40 through the night. He is available for further concerns if necessary.
[2019-01-17 03:40] LABS: Basophils % 0.1 %; Hematocrit 36.2 % (35.3-44.9); Hemoglobin 11.4 g/dL (11.5-15.4); Lymphocytes # 0.4 K/mcL (0.6-4.6); Lymphocytes % 2.9 %; Mean Corpuscular HGB Conc 31.5 g/dL (31.6-35.5); Mean Corpuscular Hemoglobin 30.7 pg (28.0-33.3); Mean Corpuscular Volume 97.6 fL (83.0-100.0); Mean Platelet Volume 12.7 fL (9.4-12.4); Monocytes # 0.7 K/mcL (0.0-1.3); Neutrophils # 10.8 K/mcL (1.6-8.9); Platelet Count 151 K/mcL (140-400); Red Blood Count 3.71 M/mcL (3.82-4.97); Red Cell Distribution Width 13.6 % (11.5-14.5)
[2019-01-17 03:50] LABS: Prothrombin Time 11.4 Seconds (9.4-12.1)
[2019-01-17 04:05] LABS: Alanine Aminotransferase 15 Units/L (7-52); Albumin 3.5 g/dL (3.5-5.7); Albumin/Globulin Ratio 1.6 (1.1-2.2); Alkaline Phosphatase 52 Units/L (34-104); Aspartate Amino Transferase 24 Units/L (13-39); BUN/Creatinine Ratio 45 (6-26); Bilirubin,Total 0.5 mg/dL (0.3-1.0); Blood Urea Nitrogen 29 mg/dL (8-23); Calcium 8.6 mg/dL (8.6-10.3); Carbon Dioxide 22 mEq/L (23-29); Chloride 111 mEq/L (98-107); Globulin 2.2 g/dL (2.4-3.5); Glucose 106 mg/dL (70-105); Magnesium 2.5 mg/dL (1.6-2.6); Osmolality,Calculated 304 (280-300); Phosphorous 1.8 mg/dL (2.7-4.5); Potassium 3.7 mEq/L (3.5-5.1); Sodium 144 mEq/L (136-145); Total Protein 5.7 g/dL (6.4-8.9); eGFR For African Americans > 60 (> 60); eGFR For Non-African Americans > 60 (> 60)
[2019-01-17] MEDS: Ipratropium/Albuterol Neb 3 ML IH SCH ×5 (04:11→20:19)
[2019-01-17] MEDS: MethylPREDNISolone 40 MG/ML VIAL IVP SCH ×2 (05:25→17:34)
[2019-01-17] MEDS: Doxycycline 100 MG in 0.9 % Sodium Chloride Mini Bag 100 ML IVPB SCH ×2 (05:25→17:35)
--- NOTE | 2019-01-17 09:23 | Procedure Note ---
Date of procedure: 01/17/19 Pre-op diagnosis: respiratory failure Post-op diagnosis: same Procedure: Verbal consent was given by the patient prior to intubation The patient was placed in a flat position. Sedation was obtained using . The patient was easily ventilated using an Ambu bag. A [employer] VIDEO LARYNGOSCOPY D BLADE was used and inserted into the oropharynx at which time there was a Grade 1 view of the vocal cords. A 7.5-uruguayan endotracheal tube was inserted and visualized going through the vocal cords. The stylette was removed. Colorimetric change was visualized on the CO2 meter. Breath sounds were heard in both lung cummins equally. The endotracheal tube was placed at 21 cm, measured at the lips A chest x-ray was ordered and is pending at this time to assess for pneumothorax and verify endotrachealtube placement. Anesthesia: IV sedation (70 mg of succinylcholine and 20 mg of etomidate were given. 2 mg of Versed were used as a pre-sedation) Was there an behavioral health assistant present: No Estimated blood loss (cc): 0 Specimen: none Pathology: none sent Condition: critical Disposition: no change
--- NOTE | 2019-01-17 09:25 | Pulmonology Progress Note ---
Date of Encounter: 01/17/19 Time of Encounter: 09:25 Assessment and Plan (1) Acute respiratory failure with hypoxia Current Visit: Yes Status: Acute I spent 40min of Critical Care time with this patient. It involved decision making of high complexity to assess, manipulate, and support vital organ system failure and/or to prevent further life threatening deterioration of the patient's condition. The time involved in the performance of separately reportable procedures was not counted toward critical care time. Patient seen and examined at bedside Labs, radiology, chart personally reviewed. Management was reviewed during multidisciplinary critical care rounds. Below reflects my systems based assessment and plan for this critically ill patient DIRECTOR OF EARLY CHILDHOOD: No focal deficits. Goal sedation Appiah 3 today unfortunately patient has been hypotensive with using propofol will need to use Versed Precedex and fentanyl while back on the vent Pulm: Worsening acute on chronic hypoxic respiratory failure requiring reintubation this was done successfully without any complications she has persistent pneumothorax and chest tube is to wall suction today the cutaneous emphysema without any acute intervention from cardiothoracic surgery and will need supportive care I will repeat her CT scan make sure there is nothing that can be intervened upon in the chest tube is in satisfactory position otherwise will need to just have supportive care for now. Repeat ABG after intubation. Continue treatment for COPD exacerbation Cards: She has NSTEMI with reduced ejection fraction plan for left heart catheterization when more stable presacral and recommends will continue heparin for now aspirin statin. Holding beta shani because of severity of underlying obstructive lung disease as well as a periodic hypotension GI: GI prophylaxis while on vent Nutrition: Nothing by mouth for now can likely start restart enteral nutrition once intubated Renal: UOP Monitored, Cont to Trend sCr and monitor Electrolytes. ID: No clear infectious process Heme/Onc: She is on heparin infusion count stable Endo: Glucose Monitored Integ/MSK: Skin Care per routine ICU Nursing Protocol to prevent ulcers. Lines: All lines examined without evidence of infection : Dispo: Monitor in ICU for critical illness CODE: Full code (2) Secondary spontaneous pneumothorax Current Visit: Yes Status: Acute (3) COPD exacerbation Current Visit: Yes Status: Acute (4) Acute encephalopathy Current Visit: Yes Status: Acute (5) Cardiomyopathy Current Visit: Yes Status: Acute Acute cardiomyopathy which may be ischemic in nature versus Dr. Kiana Medley left heart catheterization planned Qualifiers: Cardiomyopathy type: unspecified Qualified Code(s): I42.9 - Cardiomyopathy, unspecified (6) NSTEMI (non-ST elevated myocardial infarction) Current Visit: Yes Status: Acute Patient is on ACS protocol cardiology is evaluating the patient plan for left heart catheterization beta shani on hold because of hypotensive episodes. Can continue statin and aspirin (7) Giant bullous emphysema Current Visit: Yes Status: Acute We will need outpatient evaluation with cardiothoracic surgery for definitive management I spent 32min of Critical Care time with this patient. It involved decision making of high complexity to assess, manipulate, and support vital organ system failure and/or to prevent further life threatening deterioration of the patient's condition. The time involved in the performance of separately reportable procedures was not counted toward critical care time. Subjective Principal diagnosis: Respiratory Failure Interval history: Patient up having improvement risk factors as yesterday and did well on spontaneous breathing trial was extubated BiPAP unfortunately situation worsened from there and she is been persistently short of breath in fact tripoding when I came into the hospital and evaluated her. She has been on BiPAP since she also development of subcutaneous emphysema and extensive conversations were held with the CT surgery service overnight does not. There is been any markedly worsening of her chest x-ray. Objective PUL Vital signs: Last Vital Signs Temp 97.9 F 01/17/19 08:33 Pulse 85 01/17/19 08:00 Resp 22 01/17/19 08:00 BP 129/69 01/17/19 08:00 Pulse Ox 99 01/17/19 08:00 General appearance: other (She is very uncomfortable and anxious she is in a tripod position) Eyes: nonicteric ENT: oropharynx moist Effort: very labored, other (Diffuse subcutaneous emphysema noted on the right chest wall and some of tracking into the neck but not into the face. History of noted satisfactory position with mild air leak) Auscultation: bilateral: diminished breath sounds, wheezes Cardiovascular: regular rate and rhythm Gastrointestinal: normoactive bowel sounds, soft, non-tender Integumentary: other (Scattered areas of chronic ecchymosis but no worsening from previous today's examination. No evolving rash) Extremities: no cyanosis, no edema, no clubbing Musculoskeletal: no deformities non-focal exam anxious Results - Laboratory Findings CBC and BMP: 01/17/19 03:07 01/17/19 03:07 ABG ABG pH 7.38 pH Units (7.32-7.45) 01/17/19 01:15 ABG pCO2 43 mmHg (35-45) 01/17/19 01:15 ABG pO2 91 mmHg (85-104) 01/17/19 01:15 ABG O2 Saturation 97 % (95-98) 01/17/19 01:15 PT/INR, D-dimer PT 11.4 Seconds (9.4-12.1) 01/17/19 03:07 D-Dimer 1026 ng/mLFEU (0-500) H 01/13/19 20:29 Abnormal lab findings: Abnormal lab results WBC 12.0 K/mcL (4.3-11.1) H 01/17/19 03:07 RBC 3.71 M/mcL (3.82-4.97) L 01/17/19 03:07 Hgb 11.4 g/dL (11.5-15.4) L 01/17/19 03:07 Hct 46.8 % (35.3-44.9) H 01/13/19 23:51 MCV 100.5 fL (83.0-100.0) H 01/14/19 09:26 MCHC 31.5 g/dL (31.6-35.5) L 01/17/19 03:07 Plt Count 138 K/mcL (140-400) L 01/16/19 05:53 MPV 12.7 fL (9.4-12.4) H 01/17/19 03:07 Neutrophils # 10.8 K/mcL (1.6-8.9) H 01/17/19 03:07 Lymphocytes # 0.4 K/mcL (0.6-4.6) L 01/17/19 03:07 Nucleated RBCs/100 WBC 0.3 /100 WBC (0) H 01/13/19 23:51 Platelet Estimate Decreased (Normal) L 01/15/19 01:41 Clumped Platelets Few (Not Present) A 01/13/19 23:51 Immature Plt Fraction 13.1 % (1.1-6.1) H 01/13/19 23:51 D-Dimer 1026 ng/mLFEU (0-500) H 01/13/19 20:29 Heparin Anti-Xa, Unfract 0.24 IU/mL (0.30-0.70) L 01/17/19 05:40 ABG pH 7.29 pH Units (7.32-7.45) L 01/16/19 05:28 ABG pCO2 53 mmHg (35-45) H 01/16/19 05:28 ABG pO2 67 mmHg (85-104) L 01/15/19 04:57 ABG Total CO2 27 mEq/L (20-26) H 01/17/19 01:15 ABG O2 Saturation 90 % (95-98) L 01/15/19 04:57 ABG Base Excess -3 mEq/L (-2 to 3) L 01/14/19 04:16 Chloride 111 mEq/L (98-107) H 01/17/19 03:07 Carbon Dioxide 22 mEq/L (23-29) L 01/17/19 03:07 BUN 29 mg/dL (8-23) H 01/17/19 03:07 BUN/Creatinine Ratio 45 (6-26) H 01/17/19 03:07 Glucose 106 mg/dL (70-105) H 01/17/19 03:07 POC Glucose 104 mg/dL (70-99) H 01/17/19 05:50 Calculated Osmolality 304 (280-300) H 01/17/19 03:07 Lactic Acid 3.0 mmol/L (0.5-2.2) H 01/14/19 09:26 Calcium 8.5 mg/dL (8.6-10.3) L 01/16/19 05:53 Phosphorus 1.8 mg/dL (2.7-4.5) L 01/17/19 03:07 Troponin I 0.54 ng/mL (< 0.04) H* 01/15/19 01:41 B-Natriuretic Peptide 121 pg/mL (Less than 100) H 01/13/19 20:07 Serum Total Protein 5.7 g/dL (6.4-8.9) L 01/17/19 03:07 Globulin 2.2 g/dL (2.4-3.5) L 01/17/19 03:07 Lipase 7 Units/L (11-82) L 01/13/19 20:07 Procalcitonin 1.89 ng/mL (0.00-0.15) H 01/14/19 09:26 Urine Clarity Turbid (Clear) A 01/14/19 02:40 Urine Protein 30 mg/dL (Neg-Trace) H 01/14/19 02:40 Urine Ketones 80 mg/dL (Negative) H 01/14/19 02:40 Urine Blood Large (Negative) H 01/14/19 02:40 Urine Bilirubin Small (Negative) H 01/14/19 02:40 Ur Leukocyte Esterase Trace (Negative) H 01/14/19 02:40 Urine Microscopic RBC TNTC per hpf (0-3) H 01/14/19 02:40 Urine Microscopic WBC 15-30 per hpf (0-3) H 01/14/19 02:40 Ur Squamous Epith Cells Many per lpf (None-Few) H 01/14/19 02:40 Ur Culture Indicated? YES (NO) A 01/14/19 02:40 - Microbiology Findings Microbiology Findings: Microbiology, Last 48 Hours 01/13/19 22:30 Blood Culture - Preliminary Peripheral Venipuncture Culture is incubating and being continuously monitored for growth. Final report to follow. 01/14/19 02:40 Urine Culture - Final Urine,Clean Catch No growth. - Diagnostic Findings Chest x-ray: report reviewed, image reviewed - Clinical Findings Intake & Output: Intake & Output 01/16/19 01/17/19 01/17/19 23:59 07:59 15:59 Intake Total 300 / 1097 100 / 200 100 / 200 Output Total 250 / 1007 300 / 375 75 / 375 Balance 50 / 90 -200 / -175 25 / -175 Weight 56.2 kg - VTE Reasons for not Prescribing Prophylaxis: Not indicated-Anticoagulated or INR therapeutic Consult Discharge Plan - Plan Referrals: Lissette Chen CNP [Primary Care Provider] -
[2019-01-17] MEDS ORDERED: *HR* Etomidate 20 MG/10 ML AMPUL IVP ONE (09:31)
[2019-01-17] MEDS ORDERED: *HR* Midazolam HCl 2 MG/2 ML VIAL IVP ONE (09:31)
[2019-01-17] MEDS ORDERED: *HR* Succinylcholine 200 MG/10 ML VIAL IVP ONE (09:31)
[2019-01-17] MEDS ORDERED: *HR* Propofol 200 MG/20 ML VIAL IVP ONE (09:42)
--- NOTE | 2019-01-17 09:45 | Cardiothoracic Progress Note ---
Date of Encounter: 01/17/19 Time of Encounter: 09:43 - Assessment and plan (1) Giant bullous emphysema Current Visit: Yes Status: Acute The assessment and plan as outlined above was discussed with the patient and/or family members who expressed understanding and agreement. All questions were answered. Discussion with patient/family: Overall, the patient is having increasing respiratory symptoms. I did discuss the case with pulmonary and he is planning to intubate the patient. Once she is intubated she may benefit from a CT scan of the chest to evaluate the location of the new chest tube and assure that the lung is relatively expanded. We can continue the chest tube to -40 of suction though I do not believe this is really made any significant change. We will follow along with pulmonary. - Subjective Interval history: The patient was extubated yesterday. New percutaneous chest tube was placed by interventional radiology. I was contacted last night due to increasing r espiratory concerns and new subcutaneous air. I spoke with the hospitalist and there is no signs of chest tube continuity issues. The patient was placed on 40 of suction. Chest x-ray this morning looks stable with persistent subcutaneous air. The patient is currently being intubated. Vital Signs, Last 4 Hours Temp Pulse Resp BP Pulse Ox 01/17/19 08:33 97.9 F 01/17/19 08:00 85 22 129/69 99 01/17/19 07:52 86 01/17/19 07:00 77 23 140/76 99 01/17/19 06:00 85 21 128/72 99 Oxgyen Flow Rate Oxygen Flow Rate (LPM) 4 Clinical Data, last 8 Hours Output, Chest Tube Drainage 0 Amount [Right Mid-Clavicular Chest] Weight 01/15/19 01/16/19 01/17/19 23:59 23:59 23:59 Weight 55.3 kg 59.1 kg 56.2 kg - Physical Examination General: Other (She is currently on BiPAP and sitting upright. She is only mildly conversant due to distress.) HEENT: Atraumatic, Normocephaly Neck: No JVD Cardiac: Reg Rate and Rhythm Chest tubes: Other (There is no air leak and no fluctuation. I did flush the chest tube. This was easily flushed with no real change in the chest tube.) Lungs: Other (Crepitus throughout the right chest and anterior chest) Neuro: Alert and responsive, No focal deficits noted Vascular: Normal capillary refill - Labs 01/17/19 03:07 01/17/19 03:07 Lab Results, Last 24 hours 01/17/19 01/17/19 01/17/19 03:07 03:07 03:07 WBC 12.0 H Hgb 11.4 L Hct 36.2 Plt Count 151 INR 1.0 Sodium 144 Potassium 3.7 Chloride 111 H Carbon Dioxide 22 L BUN 29 H Creatinine 0.64 Glucose 106 H Calcium 8.6 Magnesium 2.5 Total Bilirubin 0.5 AST 24 ALT 15 Alkaline Phosphatase 52 - Imaging Chest Xray: image reviewed (Stable with subcutaneous emphysema and similar looking pneumothorax is previous) - VTE Reasons for not Prescribing Prophylaxis: Not indicated-Anticoagulated or INR therapeutic Consult Discharge Plan - Plan Referrals: Lissette Chen CNP [Primary Care Provider] -
[2019-01-17] MEDS: Cefepime HCl 2,000 MG in Water for inj. (sterile) 20 ML IVP SCH ×3 (10:40→23:12)
[2019-01-17] MEDS: Pantoprazole 40 MG VIAL IVP SCH (10:40)
[2019-01-17] MEDS: FentaNYL (PF) 1,000 MCG in 0.9 % Sodium Chloride 80 ML IVC SCH ×2 (10:48→18:04)
[2019-01-17] MEDS: Dexmedetomidine HCl 400 MCG/100 ML MLS IVC SCH ×2 (10:58→19:43)
[2019-01-17 12:56] LABS: ABG Base Excess 0 mEq/L (-2 to 3); ABG HCO3 27 mEq/L (21-27); ABG Oxygen Saturation 97 % (95-98); ABG PCO2 51 mmHg (35-45); ABG PH 7.33 pH Units (7.32-7.45); ABG PO2 101 mmHg (85-104); ABG TCO2 28 mEq/L (20-26); Blood Gas Modality VC; Blood Gas PEEP 0 cm H2O; Blood Gas VT 400 cc
[2019-01-17] MEDS: Heparin 25,000 UNIT/250 ML D5W 25,000 UNIT/250 ML IV.SOLN IVC SCH ×2 (17:36→19:46)
[2019-01-17] MEDS: Aspirin 81 MG TAB.CHEW GTUBE SCH (17:39)
[2019-01-17] MEDS: Chlorhexidine Rinse 15 ML MOUTHWASH MM SCH ×2 (17:39→19:51)
[2019-01-18] MEDS: Piperacillin/Tazobactam 3.375 GM in 0.9 % Sodium Chloride Mini Bag 100 ML IVPB SCH ×3 (00:01→18:03)
[2019-01-18] MEDS: Ipratropium/Albuterol Neb 3 ML IH SCH ×7 (00:25→23:37)
[2019-01-18] MEDS: Artificial Tears SOLN 15 ML BOTTLE BOTH EYES SCH ×6 (03:03→23:31)
[2019-01-18] MEDS: FentaNYL (PF) 1,000 MCG in 0.9 % Sodium Chloride 80 ML IVC SCH ×3 (04:02→16:55)
[2019-01-18] MEDS: MethylPREDNISolone 40 MG/ML VIAL IVP SCH ×2 (05:05→18:08)
[2019-01-18] MEDS: Doxycycline 100 MG in 0.9 % Sodium Chloride Mini Bag 100 ML IVPB SCH ×2 (05:07→18:09)
[2019-01-18 05:11] LABS: ABG Base Excess 3 mEq/L (-2 to 3); ABG HCO3 28 mEq/L (21-27); ABG Oxygen Saturation 93 % (95-98); ABG PCO2 45 mmHg (35-45); ABG PO2 67 mmHg (85-104); ABG TCO2 30 mEq/L (20-26); Blood Gas Modality ASSIST CONTROL; Blood Gas PEEP 0 cm H2O; Blood Gas VT 400 cc
[2019-01-18 05:18] LABS: Basophils % 0.1 %; Hematocrit 35.4 % (35.3-44.9); Immature Granulocytes % 0.9 % (0-4); Lymphocytes # 0.8 K/mcL (0.6-4.6); Lymphocytes % 4.7 %; Mean Corpuscular HGB Conc 31.1 g/dL (31.6-35.5); Mean Corpuscular Hemoglobin 30.1 pg (28.0-33.3); Monocytes # 1.2 K/mcL (0.0-1.3); Monocytes % 7.1 %; Neutrophils # 14.2 K/mcL (1.6-8.9); Platelet Count 165 K/mcL (140-400); Red Blood Count 3.65 M/mcL (3.82-4.97); Red Cell Distribution Width 13.8 % (11.5-14.5); Segmented Neutrophils % 87.2 %; White Blood Count 16.3 K/mcL (4.3-11.1)
[2019-01-18 05:23] LABS: Prothrombin Time 11.4 Seconds (9.4-12.1)
[2019-01-18 05:36] LABS: Alanine Aminotransferase 15 Units/L (7-52); Albumin 3.4 g/dL (3.5-5.7); Albumin/Globulin Ratio 1.7 (1.1-2.2); Alkaline Phosphatase 47 Units/L (34-104); Aspartate Amino Transferase 19 Units/L (13-39); BUN/Creatinine Ratio 57 (6-26); Bilirubin,Total 0.5 mg/dL (0.3-1.0); Blood Urea Nitrogen 32 mg/dL (8-23); Calcium 8.4 mg/dL (8.6-10.3); Carbon Dioxide 22 mEq/L (23-29); Chloride 114 mEq/L (98-107); Glucose 101 mg/dL (70-105); Magnesium 2.5 mg/dL (1.6-2.6); Osmolality,Calculated 309 (280-300); Phosphorous 1.8 mg/dL (2.7-4.5); Potassium 3.7 mEq/L (3.5-5.1); Sodium 146 mEq/L (136-145); Total Protein 5.4 g/dL (6.4-8.9); eGFR For African Americans > 60 (> 60); eGFR For Non-African Americans > 60 (> 60)
[2019-01-18] MEDS: Chlorhexidine Rinse 15 ML MOUTHWASH MM SCH ×2 (08:35→20:01)
[2019-01-18] MEDS: Cefepime HCl 2,000 MG in Water for inj. (sterile) 20 ML IVP SCH (08:41)
[2019-01-18] MEDS: Pantoprazole 40 MG VIAL IVP SCH (08:59)
--- NOTE | 2019-01-18 09:46 | Pulmonology Progress Note ---
<Mynor Stein - Last Filed: 01/18/19 14:54> Date of Encounter: 01/18/19 Time of Encounter: 09:46 Assessment and Plan (1) Acute respiratory failure with hypoxia Current Visit: Yes Status: Acute Acute respiratory failure with hypoxia: - Secondary to pneumothorax/bullous emphysema - Remains intubated and sedated. - Chest tube in place. R side - Chest CT: Persistent right apical Pneumothorax. Extensive subcutaneous emphysema. Biapical bulla - CT surgery following (2) Giant bullous emphysema Current Visit: Yes Status: Acute Giant bullous emphysema - Awaiting CT surgery recs - Continue vent support - Cont chest tube - CT surgery intervention after [facility] (3) Acute encephalopathy Current Visit: Yes Status: Acute Acute encephalopathy - Likely secondary to respiratory failure - Sedated, karoline goal 2-3 (4) NSTEMI (non-ST elevated myocardial infarction) Current Visit: Yes Status: Acute NSTEMI - Trop 1.03>>0.54 - EKG with inverted T waves - Cardiology following - Continue Heparin drip, ASA, statin, BB - Echo: LVEF 20-25% with wall motion abnormalities Takotsubo/stress induced cardiomyopathy - Plan for [facility] 01/19/19 - NPO at midnight - Heparin Gtt (5) COPD exacerbation Current Visit: Yes Status: Acute COPD - Duonebs q4 - Solumedrol 40 BID (6) Secondary spontaneous pneumothorax Current Visit: Yes Status: Acute Secondary Pneumothorax - Secondary to bullous emphysema (7) Leukocytosis Current Visit: Yes Status: Acute Leukocytosis - No clear onfectious process - Blood and urine cultures, NGD - Doxycycline day 4 - Zosyn day 5 - Cefepime discontinued Qualifiers: Leukocytosis type: unspecified Qualified Code(s): D72.829 - Elevated white blood cell count, unspecified Subjective Principal diagnosis: Respiratory Failure Interval history: Patient seen and examined. Afebrile, no overnight events. Remains intubated. Sedated on fentanyl and Versed. Patient seen by cardiothoracic surgery yesterday, chest CT was done yesterday evening. Patient is somnolent but arousable. Minimal output from chest tube. Objective PUL Vital signs: Last Vital Signs Temp 99.5 F 01/18/19 08:06 Pulse 81 01/18/19 09:00 Resp 12 01/18/19 09:24 BP 142/70 01/18/19 09:24 Pulse Ox 99 01/18/19 09:24 Gen: Vitals noted. No acute distress. Intubated and sedated Eyes: anicteric sclerae, moist conjunctivae; no lid-lag; Pupils 3mm, round, e qual, and reactive to light HENT: Atraumatic, normocephalic; oropharynx clear with moist mucous membranes and no mucosal ulcerations Neck: Trachea midline; supple, no thyromegaly or lymphadenopathy Cardiac: RRR, no murmurs, rubs or gallops, S1/S2 Pulmonary: no wheezes, rales or rhonchi, equal chest expansion. Diminished breath sounds BL Abdomen: soft, nondistended, no rigidity or guarding. No masses or hepatosplenomegaly MSK: ROM intact, no joint swelling noted Extremities: no BLE edema, nontender calf, no cyanosis or clubbing Skin: Normal temperature, turgor and texture; no ulcers or subcutaneous nodules. Extensive bruising of bilateral upper extremities Neuro: moves all extremities, no focal deficits. Lagrange 2-3 Psych: Appropriate mood and behavior Analgesia: fentanyl gtt Sedation: precedex gtt SBT: none Glycemic control: none Bowl regimen: none Activity: none Fluids: MIVF Electrolytes: replete as necessary Nutrition: NPO at midnight GI ppx: PPI Lines: ET, OG, clayton, 2x PIV Consults: pulm, cardio, cardiothoracic surgery, IR Code: Full code Dispo: ICU Ventilator Settings Ventilator Settings: Ventilator Settings, Last 8 Hours Ventilator Tidal Volume 400 Setting Ventilator Tidal Volume 400 Setting Ventilator Tidal Volume 400 Setting Ventilator Tidal Volume 400 Setting Ventilator Tidal Volume 400 Setting Ventilator Tidal Volume 400 Setting Ventilator Tidal Volume 400 Setting Ventilator Respiratory Rate 10 Setting Ventilator Respiratory Rate 10 Setting Ventilator Respiratory Rate 10 Setting Ventilator Respiratory Rate 10 Setting Ventilator Respiratory Rate 10 Setting Ventilator Respiratory Rate 10 Setting Ventilator Respiratory Rate 10 Setting Actual Respiratory Rate 10 Actual Respiratory Rate 10 Actual Respiratory Rate 13 Actual Respiratory Rate 19 Actual Respiratory Rate 19 Actual Respiratory Rate 19 Actual Respiratory Rate 12 Actual Respiratory Rate 12 Actual Respiratory Rate 12 Positive End Expiratory 0 Pressure Positive End Expiratory 0 Pressure Positive End Expiratory 0 Pressure Positive End Expiratory 0 Pressure Positive End Expiratory 0 Pressure Positive End Expiratory 0 Pressure Positive End Expiratory 0 Pressure Positive End Expiratory 0 Pressure Positive End Expiratory 0 Pressure Positive End Expiratory 0 Pressure Positive End Expiratory 0 Pressure Positive End Expiratory 0 Pressure Positive End Expiratory 0 Pressure Peak Inspiratory Airway 10 Pressure Peak Inspiratory Airway 10 Pressure Peak Inspiratory Airway 11 Pressure Peak Inspiratory Airway 10 Pressure Peak Inspiratory Airway 10 Pressure Peak Inspiratory Airway 10 Pressure Peak Inspiratory Airway 2.8 Pressure Peak Inspiratory Airway 2.8 Pressure Peak Inspiratory Airway 1.5 Pressure Peak Inspiratory Airway 1.5 Pressure Peak Inspiratory Airway 5.1 Pressure Results - Laboratory Findings CBC and BMP: 01/18/19 04:24 01/18/19 04:24 ABG ABG pH 7.40 pH Units (7.32-7.45) 01/18/19 05:07 ABG pCO2 45 mmHg (35-45) 01/18/19 05:07 ABG pO2 67 mmHg (85-104) L 01/18/19 05:07 ABG O2 Saturation 93 % (95-98) L 01/18/19 05:07 PT/INR, D-dimer PT 11.4 Seconds (9.4-12.1) 01/18/19 04:24 D-Dimer 1026 ng/mLFEU (0-500) H 01/13/19 20:29 Abnormal lab findings: Abnormal lab results WBC 16.3 K/mcL (4.3-11.1) H 01/18/19 04:24 RBC 3.65 M/mcL (3.82-4.97) L 01/18/19 04:24 Hgb 11.0 g/dL (11.5-15.4) L 01/18/19 04:24 Hct 46.8 % (35.3-44.9) H 01/13/19 23:51 MCV 100.5 fL (83.0-100.0) H 01/14/19 09:26 MCHC 31.1 g/dL (31.6-35.5) L 01/18/19 04:24 Plt Count 138 K/mcL (140-400) L 01/16/19 05:53 MPV 13.0 fL (9.4-12.4) H 01/18/19 04:24 Neutrophils # 14.2 K/mcL (1.6-8.9) H 01/18/19 04:24 Lymphocytes # 0.4 K/mcL (0.6-4.6) L 01/17/19 03:07 Nucleated RBCs/100 WBC 0.3 /100 WBC (0) H 01/13/19 23:51 Platelet Estimate Decreased (Normal) L 01/15/19 01:41 Clumped Platelets Few (Not Present) A 01/13/19 23:51 Immature Plt Fraction 13.1 % (1.1-6.1) H 01/13/19 23:51 D-Dimer 1026 ng/mLFEU (0-500) H 01/13/19 20:29 Heparin Anti-Xa, Unfract 0.24 IU/mL (0.30-0.70) L 01/17/19 05:40 ABG pH 7.29 pH Units (7.32-7.45) L 01/16/19 05:28 ABG pCO2 51 mmHg (35-45) H 01/17/19 12:53 ABG pO2 67 mmHg (85-104) L 01/18/19 05:07 ABG HCO3 28 mEq/L (21-27) H 01/18/19 05:07 ABG Total CO2 30 mEq/L (20-26) H 01/18/19 05:07 ABG O2 Saturation 93 % (95-98) L 01/18/19 05:07 ABG Base Excess -3 mEq/L (-2 to 3) L 01/14/19 04:16 Sodium 146 mEq/L (136-145) H 01/18/19 04:24 Chloride 114 mEq/L (98-107) H 01/18/19 04:24 Carbon Dioxide 22 mEq/L (23-29) L 01/18/19 04:24 BUN 32 mg/dL (8-23) H 01/18/19 04:24 Creatinine 0.56 mg/dL (0.60-1.20) L 01/18/19 04:24 BUN/Creatinine Ratio 57 (6-26) H 01/18/19 04:24 Glucose 106 mg/dL (70-105) H 01/17/19 03:07 POC Glucose 110 mg/dL (70-99) H 01/17/19 22:58 Calculated Osmolality 309 (280-300) H 01/18/19 04:24 Lactic Acid 3.0 mmol/L (0.5-2.2) H 01/14/19 09:26 Calcium 8.4 mg/dL (8.6-10.3) L 01/18/19 04:24 Phosphorus 1.8 mg/dL (2.7-4.5) L 01/18/19 04:24 Troponin I 0.54 ng/mL (< 0.04) H* 01/15/19 01:41 B-Natriuretic Peptide 121 pg/mL (Less than 100) H 01/13/19 20:07 Serum Total Protein 5.4 g/dL (6.4-8.9) L 01/18/19 04:24 Albumin 3.4 g/dL (3.5-5.7) L 01/18/19 04:24 Globulin 2.0 g/dL (2.4-3.5) L 01/18/19 04:24 Lipase 7 Units/L (11-82) L 01/13/19 20:07 Procalcitonin 1.89 ng/mL (0.00-0.15) H 01/14/19 09:26 Urine Clarity Turbid (Clear) A 01/14/19 02:40 Urine Protein 30 mg/dL (Neg-Trace) H 01/14/19 02:40 Urine Ketones 80 mg/dL (Negative) H 01/14/19 02:40 Urine Blood Large (Negative) H 01/14/19 02:40 Urine Bilirubin Small (Negative) H 01/14/19 02:40 Ur Leukocyte Esterase Trace (Negative) H 01/14/19 02:40 Urine Microscopic RBC TNTC per hpf (0-3) H 01/14/19 02:40 Urine Microscopic WBC 15-30 per hpf (0-3) H 01/14/19 02:40 Ur Squamous Epith Cells Many per lpf (None-Few) H 01/14/19 02:40 Ur Culture Indicated? YES (NO) A 01/14/19 02:40 - Clinical Findings Intake & Output: Intake & Output 01/17/19 01/18/19 01/18/19 23:59 07:59 15:59 Intake Total 604 / 1259 376 / 446 70 / 446 Output Total 409 / 884 350 / 700 350 / 700 Balance 195 / 375 26 / -254 -280 / -254 Weight 57 kg - VTE Reasons for not Prescribing Prophylaxis: Not indicated-Anticoagulated or INR therapeutic Consult Discharge Plan - Plan Referrals: Lissette Chen, LANGUAGE TRANSLATOR [Primary Care Provider] - <Eloisa Campos S - Last Filed: 01/18/19 22:23> Date of Encounter: 01/18/19 Objective PUL Vital signs: Last Vital Signs Temp 97.8 F 01/18/19 19:00 Pulse 59 01/18/19 22:00 Resp 11 01/18/19 22:08 BP 118/64 01/18/19 22:08 Pulse Ox 96 01/18/19 22:08 Ventilator Settings Ventilator Settings: Ventilator Settings, Last 8 Hours Ventilator Tidal Volume 400 Setting Ventilator Tidal Volume 400 Setting Ventilator Tidal Volume 400 Setting Ventilator Tidal Volume 400 Setting Ventilator Tidal Volume 400 Setting Ventilator Tidal Volume 400 Setting Ventilator Tidal Volume 400 Setting Ventilator Tidal Volume 400 Setting Ventilator Tidal Volume 400 Setting Ventilator Tidal Volume 400 Setting Ventilator Tidal Volume 400 Setting Ventilator Tidal Volume 400 Setting Ventilator Respiratory Rate 10 Setting Ventilator Respiratory Rate 10 Setting Ventilator Respiratory Rate 10 Setting Ventilator Respiratory Rate 10 Setting Ventilator Respiratory Rate 10 Setting Ventilator Respiratory Rate 10 Setting Ventilator Respiratory Rate 10 Setting Ventilator Respiratory Rate 10 Setting Ventilator Respiratory Rate 10 Setting Ventilator Respiratory Rate 10 Setting Ventilator Respiratory Rate 10 Setting Ventilator Respiratory Rate 10 Setting Actual Respiratory Rate 11 Actual Respiratory Rate 12 Actual Respiratory Rate 10 Actual Respiratory Rate 10 Positive End Expiratory 0 Pressure Positive End Expiratory 0 Pressure Positive End Expiratory 0 Pressure Positive End Expiratory 0 Pressure Positive End Expiratory 0 Pressure Positive End Expiratory 0 Pressure Positive End Expiratory 0 Pressure Positive End Expiratory 0 Pressure Positive End Expiratory 0 Pressure Positive End Expiratory 0 Pressure Positive End Expiratory 0 Pressure Positive End Expiratory 0 Pressure Peak Inspiratory Airway 8.3 Pressure Peak Inspiratory Airway 1.9 Pressure Peak Inspiratory Airway 1.9 Pressure Peak Inspiratory Airway 14 Pressure Peak Inspiratory Airway 2.5 Pressure Peak Inspiratory Airway 14 Pressure Peak Inspiratory Airway 14 Pressure Peak Inspiratory Airway 13 Pressure Peak Inspiratory Airway 1 Pressure Peak Inspiratory Airway 15 Pressure Peak Inspiratory Airway 14 Pressure Peak Inspiratory Airway 4.7 Pressure Results - Laboratory Findings CBC and BMP: 01/18/19 04:24 01/18/19 04:24 ABG ABG pH 7.40 pH Units (7.32-7.45) 01/18/19 05:07 ABG pCO2 45 mmHg (35-45) 01/18/19 05:07 ABG pO2 67 mmHg (85-104) L 01/18/19 05:07 ABG O2 Saturation 93 % (95-98) L 01/18/19 05:07 PT/INR, D-dimer PT 11.4 Seconds (9.4-12.1) 01/18/19 04:24 D-Dimer 1026 ng/mLFEU (0-500) H 01/13/19 20:29 Abnormal lab findings: Abnormal lab results WBC 16.3 K/mcL (4.3-11.1) H 01/18/19 04:24 RBC 3.65 M/mcL (3.82-4.97) L 01/18/19 04:24 Hgb 11.0 g/dL (11.5-15.4) L 01/18/19 04:24 Hct 46.8 % (35.3-44.9) H 01/13/19 23:51 MCV 100.5 fL (83.0-100.0) H 01/14/19 09:26 MCHC 31.1 g/dL (31.6-35.5) L 01/18/19 04:24 Plt Count 138 K/mcL (140-400) L 01/16/19 05:53 MPV 13.0 fL (9.4-12.4) H 01/18/19 04:24 Neutrophils # 14.2 K/mcL (1.6-8.9) H 01/18/19 04:24 Lymphocytes # 0.4 K/mcL (0.6-4.6) L 01/17/19 03:07 Nucleated RBCs/100 WBC 0.3 /100 WBC (0) H 01/13/19 23:51 Platelet Estimate Decreased (Normal) L 01/15/19 01:41 Clumped Platelets Few (Not Present) A 01/13/19 23:51 Immature Plt Fraction 13.1 % (1.1-6.1) H 01/13/19 23:51 D-Dimer 1026 ng/mLFEU (0-500) H 01/13/19 20:29 Heparin Anti-Xa, Unfract 0.24 IU/mL (0.30-0.70) L 01/17/19 05:40 ABG pH 7.29 pH Units (7.32-7.45) L 01/16/19 05:28 ABG pCO2 51 mmHg (35-45) H 01/17/19 12:53 ABG pO2 67 mmHg (85-104) L 01/18/19 05:07 ABG HCO3 28 mEq/L (21-27) H 01/18/19 05:07 ABG Total CO2 30 mEq/L (20-26) H 01/18/19 05:07 ABG O2 Saturation 93 % (95-98) L 01/18/19 05:07 ABG Base Excess -3 mEq/L (-2 to 3) L 01/14/19 04:16 Sodium 146 mEq/L (136-145) H 01/18/19 04:24 Chloride 114 mEq/L (98-107) H 01/18/19 04:24 Carbon Dioxide 22 mEq/L (23-29) L 01/18/19 04:24 BUN 32 mg/dL (8-23) H 01/18/19 04:24 Creatinine 0.56 mg/dL (0.60-1.20) L 01/18/19 04:24 BUN/Creatinine Ratio 57 (6-26) H 01/18/19 04:24 Glucose 106 mg/dL (70-105) H 01/17/19 03:07 POC Glucose 110 mg/dL (70-99) H 01/17/19 22:58 Calculated Osmolality 309 (280-300) H 01/18/19 04:24 Lactic Acid 3.0 mmol/L (0.5-2.2) H 01/14/19 09:26 Calcium 8.4 mg/dL (8.6-10.3) L 01/18/19 04:24 Phosphorus 1.8 mg/dL (2.7-4.5) L 01/18/19 04:24 Troponin I 0.54 ng/mL (< 0.04) H* 01/15/19 01:41 B-Natriuretic Peptide 121 pg/mL (Less than 100) H 01/13/19 20:07 Serum Total Protein 5.4 g/dL (6.4-8.9) L 01/18/19 04:24 Albumin 3.4 g/dL (3.5-5.7) L 01/18/19 04:24 Globulin 2.0 g/dL (2.4-3.5) L 01/18/19 04:24 Lipase 7 Units/L (11-82) L 01/13/19 20:07 Procalcitonin 1.89 ng/mL (0.00-0.15) H 01/14/19 09:26 Urine Clarity Turbid (Clear) A 01/14/19 02:40 Urine Protein 30 mg/dL (Neg-Trace) H 01/14/19 02:40 Urine Ketones 80 mg/dL (Negative) H 01/14/19 02:40 Urine Blood Large (Negative) H 01/14/19 02:40 Urine Bilirubin Small (Negative) H 01/14/19 02:40 Ur Leukocyte Esterase Trace (Negative) H 01/14/19 02:40 Urine Microscopic RBC TNTC per hpf (0-3) H 01/14/19 02:40 Urine Microscopic WBC 15-30 per hpf (0-3) H 01/14/19 02:40 Ur Squamous Epith Cells Many per lpf (None-Few) H 01/14/19 02:40 Ur Culture Indicated? YES (NO) A 01/14/19 02:40 - Clinical Findings Intake & Output: Intake & Output 01/18/19 01/18/19 01/18/19 07:59 15:59 23:59 Intake Total 376 / 1878.0 403 / 1878.0 1099.0 / 1878.0 Output Total 350 / 1250 750 / 1250 150 / 1250 Balance 26 / 628.0 -347 / 628.0 949.0 / 628.0 - Attending Attestation I saw and evaluated this patient and my medical decision-making was reviewed with the Resident Physician. I agree with the documented findings, disposition and treatment plan as described except to the extent set forth below. We independently had [id number] contact with the patient I spent 40 minutes of Critical Care time with this patient. It involved decision making of high complexity to assess, manipulate, and support vital organ system failure and/or to prevent further life threatening deterioration of the patient's condition. The time involved in the performance of separately repor table procedures was not counted toward critical care time. Patient seen and examined at bedside Labs, radiology, chart personally reviewed. Management was reviewed during multidisciplinary critical care rounds. [employer]: Patient is alert conscious following commands participated in history taking explained to her about the pathophysiology Pulm: Patient has acceptable oxygenation and ventilation patient has bilateral severe COPD with bullous emphysema with spontaneous pneumothorax on the right side appreciate cardiothoracic input patient has a right-sided chest tube but is not draining repeat chest x-ray today shows resolution of the right-sided pneumothorax. Cards: Patient is hemodynamically stable FEN-GI: Diet according to nutrition. Renal: Labs and output were reviewed ID: To de-escalate the antibiotics according to clinical response. Heme/Onc: Labs reviewed Endo: Glucose Monitored Integ/MSK: Skin Care per routine ICU Nursing Protocol to prevent ulcers. Lines: All lines examined without evidence of infection : Dispo: critically ill CODE: Full code
--- NOTE | 2019-01-18 10:21 | Cardiology Progress Note ---
Date of Encounter: 01/18/19 Time of Encounter: 09:30 Assessment and Plan (1) NSTEMI (non-ST elevated myocardial infarction) Current Visit: Yes Status: Acute Per cardiology: -Type I vs type II VT in the setting of respiratory failure, COPD. -Troponin up to 1.03 now 0.54. -EKG with Inverted T waves, could represent ischemia. -TTE shows newly reduced EF at 20-25% compared to 2017. WMA suggest possible takostubo. -Cardiac risk factors include tobacco use and family history. -Recommend LHC once stable from respiratory standpoint. -Continue heparin gtt. Asa, statin, bb. (2) Cardiomyopathy Current Visit: Yes Status: Acute Per cardiology: -Acute systolic CHF. No overt CHF on exam. EF 20-25%. Newly reduced. CXR shows pnuemothorax on right and clear lung left. Appears euvolemic -Caution with IV fluid. Strict I&O. -Daily weights. Continue low dose bb and aceI as tolerated. -Ischemic work-up recommended once able. Qualifiers: Cardiomyopathy type: unspecified Qualified Code(s): I42.9 - Cardiomyopathy, unspecified Discussion w patient/family: The assessment and plan as outlined above was discussed with the patient who expressed understanding and agreement. All questions were answered. Thank you for involving us in the care of your patient. Please call with any questions. Discussed and reviewed with Subjective Principal diagnosis: Respiratory Failure Interval history: Patient intubated and sedated. Responds to verbal stimuli. Objective Vital Signs, Last 4 Hours Temp Pulse Resp BP Pulse Ox 01/18/19 10:00 78 12 148/65 99 01/18/19 09:24 12 142/70 99 01/18/19 09:00 81 11 142/70 98 01/18/19 08:06 99.5 F 01/18/19 08:00 86 11 146/75 98 01/18/19 07:49 12 142/80 98 01/18/19 07:00 92 11 144/69 98 01/18/19 06:27 10 98 General: Other (Intubated and sedated. ) HEENT: Atraumatic, Normocephaly, Mucus Membranes Moist Neck: No JVD, Normal carotid pulses Cardiac: Reg Rate and Rhythm, Normal S1 and S2, No Murmur Lungs: Other (Lung sounds diminished throughout. Right sided chest tube noted. ) Neuro: Other (Intubated and sedated. Responds to verbal stimuli. Nods head yes and no to questions. ) Abdomen: Soft, Non-Tender Skin: No rashes noted on visualized skin Musculoskeletal: No Chest Wall Tenderness Extremities: No Clubbing, No Cyanosis, No Edema, Normal Pulses Results 01/18/19 04:24 01/18/19 04:24 Lab Results Impressions Chest X-Ray 01/17/19 07:57 IMPRESSION: Limited study due to extensive subcutaneous emphysema and mild degree of underlying pneumomediastinum. Right-sided chest tube is in place. Evaluation of the pneumothorax is limited and findings suggest interval enlargement, although this may be artifactual. Further evaluation could be considered with CT to further evaluate if clinically indicated. The findings were sent to the Radiology Results Communication Center at 7:59 am on 01/17/2019to be communicated to a licensed caregiver. D/ / 01/17/2019 09:28:06 Terrell Alvarado MD / [facility] Interpreting Provider: Terrell Alvarado MD Chest CT 01/17/19 14:01 IMPRESSION: 1. Persistent right apical pneumothorax. 2. Extensive subcutaneous and mediastinal air. 3. Emphysema with biapical bulla. 4. Lingular and left lower lobe atelectasis or infiltrate. 5. Small posterior right effusion with right basilar atelectasis or infiltrate. D/ / 01/17/2019 14:48:30 Duran Carey MD / [facility] Interpreting Provider: Duran Carey MD Chest X-Ray 01/18/19 05:33 IMPRESSION: Stable life support device positioning. No apparent residual right pneumothorax. D/ / Eduardo Swift / Eduardo Swift Interpreting Provider: Eduardo Swift Active Medications Albuterol Sulfate (Proventil Neb) 2.5 mg IH Q2H PRN; Protocol PRN Reason: Shortness Of Breath/Wheezing Stop: 07/16/19 10:21 Albuterol/Ipratropium (Duoneb) 3 ml IH [id number] ROSI Stop: 07/16/19 12:01 Last Admin: 01/18/19 07:49 Dose: 3 ml Documented by: Artificial Tears (Akwa Tears) 1 drop BOTH EYES Q2HR PRN; Protocol PRN Reason: Dry Eyes Stop: 07/16/19 08:16 Artificial Tears (Akwa Tears) 1 drop BOTH EYES Q4HR ROSI; Protocol Stop: 07/16/19 12:01 Last Admin: 01/18/19 08:35 Dose: Not Given Documented by: Aspirin (Aspirin) 81 mg GTUBE DAILY ROSI Stop: 07/17/19 09:01 Last Admin: 01/17/19 17:39 Dose: Not Given Documented by: Atorvastatin Calcium (Lipitor) 40 mg PO HS ROSI Stop: 07/16/19 02:51 Last Admin: 01/17/19 19:51 Dose: 40 mg Documented by: Chlorhexidine Gluconate (Chlorhexidine Rinse) 15 ml MM BID ROSI Stop: 07/16/19 09:01 Last Admin: 01/18/19 08:35 Dose: Not Given Documented by: Heparin Sodium (Porcine) (Heparin) 3,300 unit 60 unit/kg (3300 unit) IVP Q6HR PRN PRN Reason: SEE COMMENTS Stop: 07/15/19 20:30 Last Admin: 01/14/19 00:18 Dose: 3,300 unit Documented by: Heparin Sodium (Porcine) (Heparin) 1,600 unit 30 unit/kg (1600 unit) IVP Q6H PRN PRN Reason: SEE COMMENTS Stop: 07/15/19 20:30 Last Admin: 01/17/19 06:57 Dose: 1,600 unit Documented by: Propofol (Diprivan) 1,000 mg in 100 mls @ 1.641 mls/hr IVC .Q24H ROSI; Protocol Stop: 07/15/19 20:16 Last Admin: 01/17/19 19:46 Dose: Not Given Documented by: Heparin Sodium/Dextrose (Heparin 25,000 Unit/250 Ml D5w) 25,000 unit in 250 mls @ 6.564 mls/hr IVC .Q24H ROSI; Protocol Stop: 07/15/19 20:31 Last Titration: 01/17/19 20:22 Dose: 13 unit/kg/hr, 7.1 mls/hr Documented by: Fentanyl Citrate 1,000 mcg/ (Sodium Chloride) 100 mls @ 2.5 mls/hr IVC CONT ROSI; Protocol Stop: 07/16/19 08:16 Last Titration: 01/18/19 09:02 Dose: 25 mcg/hr, 2.5 mls/hr Documented by: Piperacillin Sod/Tazobactam (Sod 3.375 gm/ Sodium Chloride) 100 mls @ 25 mls/hr IVPB Q8H [facility] Stop: 07/16/19 09:01 Last Admin: 01/18/19 08:48 Dose: 25 mls/hr Documented by: Dexmedetomidine HCl (Precedex Premix) 400 mcg in 100 mls @ 2.765 mls/hr IVC .Q24H [facility]; Protocol Stop: 07/17/19 08:31 Last Titration: 01/18/19 09:00 Dose: 0.5 mcg/kg/hr, 6.9 mls/hr Documented by: Cefepime HCl 2,000 mg/ Sterile (Water) 20 mls @ 300 mls/hr IVP Q8HR [facility] Stop: 07/17/19 16:01 Last Infusion: 01/18/19 08:46 Dose: Infused Documented by: Doxycycline Hyclate 100 mg/ (Sodium Chloride) 100 mls @ 100 mls/hr IVPB Q12HR [facility] Stop: 07/17/19 18:01 Last Infusion: 01/18/19 06:59 Dose: Infused Documented by: Midazolam HCl 50 mg/ Sodium (Chloride) 100 mls @ 4 mls/hr IVC CONT [facility]; Protocol Stop: 07/19/19 10:46 Last Titration: 01/18/19 05:30 Dose: 0 mg/hr, 0 mls/hr Documented by: Lisinopril (Zestril) 2.5 mg PO DAILY [facility]; Protocol Stop: 07/16/19 15:01 Last Admin: 01/17/19 17:40 Dose: Not Given Documented by: Methylprednisolone (Solu-Medrol) 40 mg IVP Q12HR [facility] Stop: 07/16/19 18:01 Last Admin: 01/18/19 05:05 Dose: 40 mg Documented by: Metoprolol Tartrate (Lopressor) 12.5 mg GTUBE BID [facility] Stop: 07/17/19 09:31 Last Admin: 01/17/19 19:52 Dose: Not Given Documented by: Midazolam HCl (Versed) 2 mg IVP Q5MPRN PRN PRN Reason: Agitation Naloxone HCl (Narcan) 0.4 mg IVP Q2MPRN PRN PRN Reason: SEE COMMENTS Stop: 07/15/19 20:12 Pantoprazole Sodium (Protonix) 40 mg IVP DAILY [facility] Stop: 07/16/19 09:01 Last Admin: 01/18/19 08:59 Dose: 40 mg Documented by: Laboratory Tests 01/18/19 01/18/19 04:24 04:24 WBC 16.3 H Hgb 11.0 L Creatinine 0.56 L - Imaging and Cardiology Chest Xray: report reviewed Echo: report reviewed - EKG Interpretation EKG results cardiology: other (No significant arrythmias noted on telemetry.) - VTE Reasons for not Prescribing Prophylaxis: Not indicated-Anticoagulated or INR therapeutic Consult Discharge Plan - Plan Referrals: Lissette Chen CNP [Primary Care Provider] -
[2019-01-18] MEDS ORDERED: Potassium Phosphate 44 MEQ in 0.9 % Sodium Chloride 250 ML IVPB ONE (11:04)
[2019-01-18] MEDS: Aspirin 81 MG TAB.CHEW GTUBE SCH (11:12)
--- NOTE | 2019-01-18 11:53 | Cardiothoracic Progress Note ---
Date of Encounter: 01/18/19 Time of Encounter: 11:51 - Assessment and plan (1) Giant bullous emphysema Current Visit: Yes Status: Acute The assessment and plan as outlined above was discussed with the patient and/or family members who expressed understanding and agreement. All questions were answered. i have reviewed the films from over the weekend, have meet the and explained the plan for heart cath, extubation and hopefully surgery in that order. (2) Acute respiratory failure with hypoxia Current Visit: Yes Status: Acute The assessment and plan as outlined above was discussed with the patient and/or family members who expressed understanding and agreement. All questions were answered. (3) NSTEMI (non-ST elevated myocardial infarction) Current Visit: Yes Status: Acute The assessment and plan as outlined above was discussed with the patient and/or family members who expressed understanding and agreement. All questions were answered. Vital Signs, Last 4 Hours Temp Pulse Resp BP Pulse Ox 01/18/19 11:00 66 10 142/76 99 01/18/19 10:00 78 12 148/65 99 01/18/19 09:24 12 142/70 99 01/18/19 09:00 81 11 142/70 98 01/18/19 08:06 99.5 F 01/18/19 08:00 86 11 146/75 98 Oxgyen Flow Rate Oxygen Flow Rate (LPM) 15 Clinical Data, last 8 Hours Output, Chest Tube Drainage 0 Amount [Right Mid-Clavicular Chest] Weight 01/16/19 01/17/19 01/18/19 23:59 23:59 23:59 Weight 59.1 kg 57 kg - Physical Examination General: No Apparent Distress, Other (intiubated) HEENT: Atraumatic, Normocephaly Cardiac: Reg Rate and Rhythm Incision: No signs of infection Chest tubes: Minimal drainage Lungs: Decreased breath sounds Neuro: Alert and responsive, No focal deficits noted Abdomen: Soft, Non-tender - Labs 01/18/19 04:24 01/18/19 04:24 Lab Results, Last 24 hours 01/18/19 01/18/19 01/18/19 04:24 04:24 04:24 WBC 16.3 H Hgb 11.0 L Hct 35.4 Plt Count 165 INR 1.0 Sodium 146 H Potassium 3.7 Chloride 114 H Carbon Dioxide 22 L BUN 32 H Creatinine 0.56 L Glucose 101 Calcium 8.4 L Magnesium 2.5 Total Bilirubin 0.5 AST 19 ALT 15 Alkaline Phosphatase 47 - Imaging Chest Xray: image reviewed - VTE Reasons for not Prescribing Prophylaxis: Not indicated-Anticoagulated or INR therapeutic Consult Discharge Plan - Plan Referrals: Lissette Chen, ARIANE [Primary Care Provider] -
[2019-01-18] MEDS: Dexmedetomidine HCl 400 MCG/100 ML MLS IVC SCH (17:06)
[2019-01-18] MEDS: Heparin 25,000 UNIT/250 ML D5W 25,000 UNIT/250 ML IV.SOLN IVC SCH (19:49)
[2019-01-18] MEDS ORDERED: Piperacillin/Tazobactam 3.375 GM VIAL ONE (22:27)
[2019-01-19] MEDS: Piperacillin/Tazobactam 3.375 GM in 0.9 % Sodium Chloride Mini Bag 100 ML IVPB SCH ×3 (00:03→16:54)
[2019-01-19] MEDS: FentaNYL (PF) 1,000 MCG in 0.9 % Sodium Chloride 80 ML IVC SCH ×4 (00:09→23:17)
[2019-01-19] MEDS: Artificial Tears SOLN 15 ML BOTTLE BOTH EYES SCH ×5 (03:06→20:33)
[2019-01-19] MEDS: Ipratropium/Albuterol Neb 3 ML IH SCH ×6 (03:08→23:35)
[2019-01-19 04:07] LABS: Hematocrit 31.1 % (35.3-44.9); Hemoglobin 9.6 g/dL (11.5-15.4); Immature Granulocytes % 1.2 % (0-4); Immature Platelets 15.7 % (1.1-6.1); Lymphocytes # 0.4 K/mcL (0.6-4.6); Lymphocytes % 4.1 %; Mean Corpuscular HGB Conc 30.9 g/dL (31.6-35.5); Mean Corpuscular Hemoglobin 30.4 pg (28.0-33.3); Mean Corpuscular Volume 98.4 fL (83.0-100.0); Mean Platelet Volume 12.7 fL (9.4-12.4); Monocytes # 0.6 K/mcL (0.0-1.3); Platelet Count 140 K/mcL (140-400); Red Blood Count 3.16 M/mcL (3.82-4.97); Segmented Neutrophils % 87.7 %; White Blood Count 9.2 K/mcL (4.3-11.1)
[2019-01-19 04:25] LABS: Magnesium 2.3 mg/dL (1.6-2.6); Phosphorous 2.7 mg/dL (2.7-4.5)
[2019-01-19 04:26] LABS: ABG Base Excess 4 mEq/L (-2 to 3); ABG HCO3 30 mEq/L (21-27); ABG Oxygen Saturation 92 % (95-98); ABG PCO2 48 mmHg (35-45); ABG PO2 66 mmHg (85-104); ABG TCO2 31 mEq/L (20-26); Blood Gas Modality VC; Blood Gas PEEP 0 cm H2O; Blood Gas VT 400 cc
[2019-01-19 04:26] LABS: BUN/Creatinine Ratio 64 (6-26); Blood Urea Nitrogen 36 mg/dL (8-23); Calcium 8.1 mg/dL (8.6-10.3); Carbon Dioxide 27 mEq/L (23-29); Chloride 114 mEq/L (98-107); Glucose 121 mg/dL (70-105); Osmolality,Calculated 312 (280-300); Potassium 4.4 mEq/L (3.5-5.1); Sodium 146 mEq/L (136-145); eGFR For African Americans > 60 (> 60); eGFR For Non-African Americans > 60 (> 60)
[2019-01-19] MEDS: Doxycycline 100 MG in 0.9 % Sodium Chloride Mini Bag 100 ML IVPB SCH ×2 (05:00→18:08)
[2019-01-19] MEDS: MethylPREDNISolone 40 MG/ML VIAL IVP SCH ×2 (05:00→18:08)
[2019-01-19] MEDS: Chlorhexidine Rinse 15 ML MOUTHWASH MM SCH ×2 (07:48→20:32)
[2019-01-19] MEDS: Pantoprazole 40 MG VIAL IVP SCH (07:48)
[2019-01-19] MEDS: Aspirin 81 MG TAB.CHEW GTUBE SCH (07:48)
--- NOTE | 2019-01-19 08:31 | Pulmonology Progress Note ---
<Mynor Stein L - Last Filed: 01/19/19 11:42> Date of Encounter: 01/19/19 Time of Encounter: 08:30 Assessment and Plan (1) Acute respiratory failure with hypoxia Current Visit: Yes Status: Acute Acute respiratory failure with hypoxia: - Secondary to pneumothorax/bullous emphysema - Remains intubated and sedated. - Chest tube in place. R side - Chest CT: Persistent right apical Pneumothorax. Extensive subcutaneous emphysema. Biapical bulla - CT surgery following (2) Anemia Current Visit: Yes Status: Acute Anemia - Acute drop in HGB 11.0>>9.6 - No obvious source of bleeding - No recent bowel movements - On heparin Gtt - Will recheck PT/INR today Qualifiers: Anemia type: unspecified type Qualified Code(s): D64.9 - Anemia, unspecified (3) NSTEMI (non-ST elevated myocardial infarction) Current Visit: Yes Status: Acute NSTEMI - Trop 1.03>>0.54 - EKG with inverted T waves - Cardiology following - Continue Heparin drip, ASA, statin, BB - Echo: LVEF 20-25% with wall motion abnormalities Takotsubo/stress induced cardiomyopathy - Plan for LHC today - NPO for heart cath - Heparin Gtt (4) Giant bullous emphysema Current Visit: Yes Status: Acute Giant bullous emphysema - Awaiting CT surgery recs - Continue vent support - Cont chest tube - CT surgery intervention after C (5) Acute encephalopathy Current Visit: Yes Status: Acute Acute encephalopathy - Likely secondary to respiratory failure - Sedated, karoline goal 2-3 (6) COPD exacerbation Current Visit: Yes Status: Acute COPD - Duonebs q4 - Solumedrol 40 BID (7) Secondary spontaneous pneumothorax Current Visit: Yes Status: Acute Secondary Pneumothorax - Secondary to bullous emphysema - Chest tube in place. Minimal output (8) Leukocytosis Current Visit: Yes Status: Acute Leukocytosis - No clear infectious process - Blood and urine cultures, NGD - Doxycycline day 5 - Zosyn day 6 - Cefepime discontinued Qualifiers: Leukocytosis type: unspecified Qualified Code(s): D72.829 - Elevated white blood cell count, unspecified Subjective Principal diagnosis: Respiratory Failure Interval history: Patient seen and examined. Afebrile, no overnight events. Remains intubated. Sedated on fentanyl, precedex, and Versed. Plan for heart cath today. Patient is somnolent but arousable. Minimal output from chest tube. No bowel movements. Objective PUL Vital signs: Last Vital Signs Temp 97.9 F 01/19/19 07:45 Pulse 79 01/19/19 08:00 Resp 13 01/19/19 08:00 BP 123/71 01/19/19 08:00 Pulse Ox 96 01/19/19 08:00 Gen: Vitals noted. No acute distress. Intubated and sedated Eyes: anicteric sclerae, moist conjunctivae; no lid-lag; Pupils 3mm, round, equal, and reactive to light HENT: Atraumatic, normocephalic; oropharynx clear with moist mucous membranes and no mucosal ulcerations Neck: Trachea midline; supple, no thyromegaly or lymphadenopathy Cardiac: RRR, no murmurs, rubs or gallops, S1/S2 Pulmonary: no wheezes, rales or rhonchi, equal chest expansion. Diminished breath sounds BL Abdomen: soft, nondistended, no rigidity or guarding. No masses or hepatosplenomegaly MSK: ROM intact, no joint swelling noted Extremities: no BLE edema, nontender calf, no cyanosis or clubbing Skin: Normal temperature, turgor and texture; no ulcers or subcutaneous nodules. Extensive bruising of bilateral upper extremities Neuro: moves all extremities, no focal deficits. Karoline 2-3 Psych: Appropriate mood and behavior Analgesia: fentanyl gtt Sedation: precedex gtt, versed gtt SBT: none Glycemic control: none Bowl regimen: none Activity: none Fluids: MIVF Electrolytes: replete as necessary Nutrition: NPO at midnight GI ppx: PPI Lines: ET, OG, clayton, 2x PIV Consults: pulm, cardio, cardiothoracic surgery, IR Code: Full code Dispo: ICU Ventilator Settings Ventilator Settings: Ventilator Settings, Last 8 Hours Ventilator Tidal Volume 400 Setting Ventilator Tidal Volume 400 Setting Ventilator Tidal Volume 400 Setting Ventilator Tidal Volume 400 Setting Ventilator Tidal Volume 400 Setting Ventilator Tidal Volume 400 Setting Ventilator Tidal Volume 400 Setting Ventilator Tidal Volume 400 Setting Ventilator Tidal Volume 400 Setting Ventilator Tidal Volume 400 Setting Ventilator Tidal Volume 400 Setting Ventilator Tidal Volume 400 Setting Ventilator Tidal Volume 400 Setting Ventilator Respiratory Rate 10 Setting Ventilator Respiratory Rate 10 Setting Ventilator Respiratory Rate 10 Setting Ventilator Respiratory Rate 10 Setting Ventilator Respiratory Rate 10 Setting Ventilator Respiratory Rate 10 Setting Ventilator Respiratory Rate 10 Setting Ventilator Respiratory Rate 10 Setting Ventilator Respiratory Rate 10 Setting Ventilator Respiratory Rate 10 Setting Ventilator Respiratory Rate 10 Setting Ventilator Respiratory Rate 10 Setting Ventilator Respiratory Rate 10 Setting Actual Respiratory Rate 11 Actual Respiratory Rate 10 Actual Respiratory Rate 10 Actual Respiratory Rate 14 Actual Respiratory Rate 14 Actual Respiratory Rate 16 Actual Respiratory Rate 16 Actual Respiratory Rate 16 Actual Respiratory Rate 11 Positive End Expiratory 0 Pressure Positive End Expiratory 0 Pressure Positive End Expiratory 0 Pressure Positive End Expiratory 0 Pressure Positive End Expiratory 0 Pressure Positive End Expiratory 0 Pressure Positive End Expiratory 0 Pressure Positive End Expiratory 0 Pressure Positive End Expiratory 0 Pressure Positive End Expiratory 0 Pressure Positive End Expiratory 0 Pressure Positive End Expiratory 0 Pressure Positive End Expiratory 0 Pressure Peak Inspiratory Airway 5.4 Pressure Peak Inspiratory Airway 5.9 Pressure Peak Inspiratory Airway 2.4 Pressure Peak Inspiratory Airway 3 Pressure Peak Inspiratory Airway 9.3 Pressure Peak Inspiratory Airway 11 Pressure Peak Inspiratory Airway 3.3 Pressure Peak Inspiratory Airway 2 Pressure Peak Inspiratory Airway 7.4 Pressure Peak Inspiratory Airway 7.4 Pressure Peak Inspiratory Airway 14 Pressure Results - Laboratory Findings CBC and BMP: 01/19/19 03:30 01/19/19 03:30 ABG ABG pH 7.40 pH Units (7.32-7.45) 01/19/19 04:22 ABG pCO2 48 mmHg (35-45) H 01/19/19 04:22 ABG pO2 66 mmHg (85-104) L 01/19/19 04:22 ABG O2 Saturation 92 % (95-98) L 01/19/19 04:22 PT/INR, D-dimer PT 11.4 Seconds (9.4-12.1) 01/18/19 04:24 D-Dimer 1026 ng/mLFEU (0-500) H 01/13/19 20:29 Abnormal lab findings: Abnormal lab results WBC 16.3 K/mcL (4.3-11.1) H 01/18/19 04:24 RBC 3.16 M/mcL (3.82-4.97) L 01/19/19 03:30 Hgb 9.6 g/dL (11.5-15.4) L 01/19/19 03:30 Hct 31.1 % (35.3-44.9) L 01/19/19 03:30 MCV 100.5 fL (83.0-100.0) H 01/14/19 09:26 MCHC 30.9 g/dL (31.6-35.5) L 01/19/19 03:30 Plt Count 138 K/mcL (140-400) L 01/16/19 05:53 MPV 12.7 fL (9.4-12.4) H 01/19/19 03:30 Neutrophils # 14.2 K/mcL (1.6-8.9) H 01/18/19 04:24 Lymphocytes # 0.4 K/mcL (0.6-4.6) L 01/19/19 03:30 Nucleated RBCs/100 WBC 0.3 /100 WBC (0) H 01/13/19 23:51 Platelet Estimate Decreased (Normal) L 01/15/19 01:41 Clumped Platelets Few (Not Present) A 01/13/19 23:51 Immature Plt Fraction 15.7 % (1.1-6.1) H 01/19/19 03:30 D-Dimer 1026 ng/mLFEU (0-500) H 01/13/19 20:29 Heparin Anti-Xa, Unfract 0.24 IU/mL (0.30-0.70) L 01/17/19 05:40 ABG pH 7.29 pH Units (7.32-7.45) L 01/16/19 05:28 ABG pCO2 48 mmHg (35-45) H 01/19/19 04:22 ABG pO2 66 mmHg (85-104) L 01/19/19 04:22 ABG HCO3 30 mEq/L (21-27) H 01/19/19 04:22 ABG Total CO2 31 mEq/L (20-26) H 01/19/19 04:22 ABG O2 Saturation 92 % (95-98) L 01/19/19 04:22 ABG Base Excess 4 mEq/L (-2 to 3) H 01/19/19 04:22 Sodium 146 mEq/L (136-145) H 01/19/19 03:30 Chloride 114 mEq/L (98-107) H 01/19/19 03:30 Carbon Dioxide 22 mEq/L (23-29) L 01/18/19 04:24 BUN 36 mg/dL (8-23) H 01/19/19 03:30 Creatinine 0.56 mg/dL (0.60-1.20) L 01/19/19 03:30 BUN/Creatinine Ratio 64 (6-26) H 01/19/19 03:30 Glucose 121 mg/dL (70-105) H 01/19/19 03:30 POC Glucose 113 mg/dL (70-99) H 01/18/19 23:56 Calculated Osmolality 312 (280-300) H 01/19/19 03:30 Lactic Acid 3.0 mmol/L (0.5-2.2) H 01/14/19 09:26 Calcium 8.1 mg/dL (8.6-10.3) L 01/19/19 03:30 Phosphorus 1.8 mg/dL (2.7-4.5) L 01/18/19 04:24 Troponin I 0.54 ng/mL (< 0.04) H* 01/15/19 01:41 B-Natriuretic Peptide 121 pg/mL (Less than 100) H 01/13/19 20:07 Serum Total Protein 5.4 g/dL (6.4-8.9) L 01/18/19 04:24 Albumin 3.4 g/dL (3.5-5.7) L 01/18/19 04:24 Globulin 2.0 g/dL (2.4-3.5) L 01/18/19 04:24 Lipase 7 Units/L (11-82) L 01/13/19 20:07 Procalcitonin 1.89 ng/mL (0.00-0.15) H 01/14/19 09:26 Urine Clarity Turbid (Clear) A 01/14/19 02:40 Urine Protein 30 mg/dL (Neg-Trace) H 01/14/19 02:40 Urine Ketones 80 mg/dL (Negative) H 01/14/19 02:40 Urine Blood Large (Negative) H 01/14/19 02:40 Urine Bilirubin Small (Negative) H 01/14/19 02:40 Ur Leukocyte Esterase Trace (Negative) H 01/14/19 02:40 Urine Microscopic RBC TNTC per hpf (0-3) H 01/14/19 02:40 Urine Microscopic WBC 15-30 per hpf (0-3) H 01/14/19 02:40 Ur Squamous Epith Cells Many per lpf (None-Few) H 01/14/19 02:40 Ur Culture Indicated? YES (NO) A 01/14/19 02:40 - Microbiology Findings Microbiology Findings: Microbiology, Last 48 Hours 01/13/19 22:00 Blood Culture - Final Peripheral Venipuncture No growth. Final report. 01/13/19 22:30 Blood Culture - Final Peripheral Venipuncture No growth. Final report. - Clinical Findings Intake & Output: Intake & Output 01/18/19 01/19/19 01/19/19 23:59 07:59 15:59 Intake Total 1099.0 / 1878.0 375.4 / 375.4 Output Total 450 / 1550 450 / 450 0 / 450 Balance 649.0 / 328.0 -74.6 / -74.6 0 / -74.6 Weight 58 kg - VTE Reasons for not Prescribing Prophylaxis: Not indicated-Anticoagulated or INR therapeutic Consult Discharge Plan - Plan Referrals: Lissette Chen CNP [Primary Care Provider] - <Eloisa Campos - Last Filed: 01/19/19 22:04> Date of Encounter: 01/19/19 Objective PUL Vital signs: Last Vital Signs Temp 97.8 F 01/19/19 20:31 Pulse 63 01/19/19 21:00 Resp 10 01/19/19 21:26 BP 117/63 01/19/19 21:26 Pulse Ox 95 01/19/19 21:26 Ventilator Settings Ventilator Settings: Ventilator Settings, Last 8 Hours Ventilator Tidal Volume 400 Setting Ventilator Tidal Volume 400 Setting Ventilator Tidal Volume 400 Setting Ventilator Tidal Volume 400 Setting Ventilator Tidal Volume 400 Setting Ventilator Tidal Volume 400 Setting Ventilator Tidal Volume 400 Setting Ventilator Tidal Volume 400 Setting Ventilator Tidal Volume 400 Setting Ventilator Tidal Volume 400 Setting Ventilator Tidal Volume 400 Setting Ventilator Tidal Volume 400 Setting Ventilator Tidal Volume 400 Setting Ventilator Tidal Volume 400 Setting Ventilator Tidal Volume 400 Setting Ventilator Respiratory Rate 10 Setting Ventilator Respiratory Rate 10 Setting Ventilator Respiratory Rate 10 Setting Ventilator Respiratory Rate 10 Setting Ventilator Respiratory Rate 10 Setting Ventilator Respiratory Rate 10 Setting Ventilator Respiratory Rate 10 Setting Ventilator Respiratory Rate 10 Setting Ventilator Respiratory Rate 10 Setting Ventilator Respiratory Rate 10 Setting Ventilator Respiratory Rate 10 Setting Ventilator Respiratory Rate 10 Setting Ventilator Respiratory Rate 10 Setting Ventilator Respiratory Rate 10 Setting Ventilator Respiratory Rate 10 Setting Actual Respiratory Rate 10 Actual Respiratory Rate 10 Actual Respiratory Rate 10 Actual Respiratory Rate 10 Actual Respiratory Rate 10 Actual Respiratory Rate 14 Actual Respiratory Rate 10 Actual Respiratory Rate 14 Actual Respiratory Rate 14 Actual Respiratory Rate 13 Actual Respiratory Rate 13 Actual Respiratory Rate 13 Actual Respiratory Rate 13 Actual Respiratory Rate 14 Actual Respiratory Rate 14 Positive End Expiratory 0 Pressure Positive End Expiratory 0 Pressure Positive End Expiratory 0 Pressure Positive End Expiratory 0 Pressure Positive End Expiratory 0 Pressure Positive End Expiratory 0 Pressure Positive End Expiratory 0 Pressure Positive End Expiratory 0 Pressure Positive End Expiratory 0 Pressure Positive End Expiratory 0 Pressure Positive End Expiratory 0 Pressure Positive End Expiratory 0 Pressure Positive End Expiratory 0 Pressure Positive End Expiratory 0 Pressure Positive End Expiratory 0 Pressure Peak Inspiratory Airway 14 Pressure Peak Inspiratory Airway 14 Pressure Peak Inspiratory Airway 14 Pressure Peak Inspiratory Airway 13 Pressure Peak Inspiratory Airway 14 Pressure Peak Inspiratory Airway 13 Pressure Peak Inspiratory Airway 13 Pressure Peak Inspiratory Airway 13 Pressure Peak Inspiratory Airway 13 Pressure Peak Inspiratory Airway 12 Pressure Peak Inspiratory Airway 12 Pressure Peak Inspiratory Airway 1.7 Pressure Peak Inspiratory Airway 17 Pressure Peak Inspiratory Airway 1.7 Pressure Peak Inspiratory Airway 1.7 Pressure Results - Laboratory Findings CBC and BMP: 01/19/19 03:30 01/19/19 03:30 ABG ABG pH 7.40 pH Units (7.32-7.45) 01/19/19 04:22 ABG pCO2 48 mmHg (35-45) H 01/19/19 04:22 ABG pO2 66 mmHg (85-104) L 01/19/19 04:22 ABG O2 Saturation 92 % (95-98) L 01/19/19 04:22 PT/INR, D-dimer PT 13.1 Seconds (9.4-12.1) H 01/19/19 15:53 D-Dimer 1026 ng/mLFEU (0-500) H 01/13/19 20:29 Abnormal lab findings: Abnormal lab results WBC 16.3 K/mcL (4.3-11.1) H 01/18/19 04:24 RBC 3.16 M/mcL (3.82-4.97) L 01/19/19 03:30 Hgb 9.6 g/dL (11.5-15.4) L 01/19/19 03:30 Hct 31.1 % (35.3-44.9) L 01/19/19 03:30 MCV 100.5 fL (83.0-100.0) H 01/14/19 09:26 MCHC 30.9 g/dL (31.6-35.5) L 01/19/19 03:30 Plt Count 138 K/mcL (140-400) L 01/16/19 05:53 MPV 12.7 fL (9.4-12.4) H 01/19/19 03:30 Neutrophils # 14.2 K/mcL (1.6-8.9) H 01/18/19 04:24 Lymphocytes # 0.4 K/mcL (0.6-4.6) L 01/19/19 03:30 Nucleated RBCs/100 WBC 0.3 /100 WBC (0) H 01/13/19 23:51 Platelet Estimate Decreased (Normal) L 01/15/19 01:41 Clumped Platelets Few (Not Present) A 01/13/19 23:51 Immature Plt Fraction 15.7 % (1.1-6.1) H 01/19/19 03:30 PT 13.1 Seconds (9.4-12.1) H 01/19/19 15:53 D-Dimer 1026 ng/mLFEU (0-500) H 01/13/19 20:29 Heparin Anti-Xa, Unfract 0.24 IU/mL (0.30-0.70) L 01/17/19 05:40 ABG pH 7.29 pH Units (7.32-7.45) L 01/16/19 05:28 ABG pCO2 48 mmHg (35-45) H 01/19/19 04:22 ABG pO2 66 mmHg (85-104) L 01/19/19 04:22 ABG HCO3 30 mEq/L (21-27) H 01/19/19 04:22 ABG Total CO2 31 mEq/L (20-26) H 01/19/19 04:22 ABG O2 Saturation 92 % (95-98) L 01/19/19 04:22 ABG Base Excess 4 mEq/L (-2 to 3) H 01/19/19 04:22 Sodium 146 mEq/L (136-145) H 01/19/19 03:30 Chloride 114 mEq/L (98-107) H 01/19/19 03:30 Carbon Dioxide 22 mEq/L (23-29) L 01/18/19 04:24 BUN 36 mg/dL (8-23) H 01/19/19 03:30 Creatinine 0.56 mg/dL (0.60-1.20) L 01/19/19 03:30 BUN/Creatinine Ratio 64 (6-26) H 01/19/19 03:30 Glucose 121 mg/dL (70-105) H 01/19/19 03:30 POC Glucose 113 mg/dL (70-99) H 01/18/19 23:56 Calculated Osmolality 312 (280-300) H 01/19/19 03:30 Lactic Acid 3.0 mmol/L (0.5-2.2) H 01/14/19 09:26 Calcium 8.1 mg/dL (8.6-10.3) L 01/19/19 03:30 Phosphorus 1.8 mg/dL (2.7-4.5) L 01/18/19 04:24 Troponin I 0.54 ng/mL (< 0.04) H* 01/15/19 01:41 B-Natriuretic Peptide 121 pg/mL (Less than 100) H 01/13/19 20:07 Serum Total Protein 5.4 g/dL (6.4-8.9) L 01/18/19 04:24 Albumin 3.4 g/dL (3.5-5.7) L 01/18/19 04:24 Globulin 2.0 g/dL (2.4-3.5) L 01/18/19 04:24 Lipase 7 Units/L (11-82) L 01/13/19 20:07 Procalcitonin 1.89 ng/mL (0.00-0.15) H 01/14/19 09:26 Urine Clarity Turbid (Clear) A 01/14/19 02:40 Urine Protein 30 mg/dL (Neg-Trace) H 01/14/19 02:40 Urine Ketones 80 mg/dL (Negative) H 01/14/19 02:40 Urine Blood Large (Negative) H 01/14/19 02:40 Urine Bilirubin Small (Negative) H 01/14/19 02:40 Ur Leukocyte Esterase Trace (Negative) H 01/14/19 02:40 Urine Microscopic RBC TNTC per hpf (0-3) H 01/14/19 02:40 Urine Microscopic WBC 15-30 per hpf (0-3) H 01/14/19 02:40 Ur Squamous Epith Cells Many per lpf (None-Few) H 01/14/19 02:40 Ur Culture Indicated? YES (NO) A 01/14/19 02:40 - Microbiology Findings Microbiology Findings: Microbiology, Last 48 Hours 01/13/19 22:00 Blood Culture - Final Peripheral Venipuncture No growth. Final report. 01/13/19 22:30 Blood Culture - Final Peripheral Venipuncture No growth. Final report. - Clinical Findings Intake & Output: Intake & Output 01/19/19 01/19/19 01/19/19 07:59 15:59 23:59 Intake Total 375.4 / 1488.0 332.6 / 1488.0 780 / 1488.0 Output Total 450 / 1005 355 / 1005 200 / 1005 Balance -74.6 / 483.0 -22.4 / 483.0 580 / 483.0 Weight 58 kg - Attending Attestation I saw and evaluated this patient and my medical decision-making was reviewed with the Resident Physician. I agree with the documented findings, disposition and treatment plan as described except to the extent set forth below. We independently had [id number] contact with the patient I spent 40 minutes of Critical Care time with this patient. It involved d ecision making of high complexity to assess, manipulate, and support vital organ system failure and/or to prevent further life threatening deterioration of the patient's condition. The time involved in the performance of separately reportable procedures was not counted toward critical care time. Patient seen and examined at bedside Labs, radiology, chart personally reviewed. Management was reviewed during multidisciplinary critical care rounds. SEWER TAPPER: Patient is conscious and she is awake and alert and she understands her disease process patient does not show any evidence of encephalopathy no evidence of focal neurological deficit Pulm: Patient has acceptable oxygenation and ventilation patient has severe COPD with bullous emphysema with spontaneous pneumothorax patient has chest tube not much leak cardiothoracic surgery is following patient will need to surgical intervention at some point during this current illness. Cardiothoracic surgery wanted to cardiac clearance before surgery. Cards: Patient had EF of 20-25% with wall motion abnormalities patient had a cardiac catheterization which showed mild coronary artery disease most likely nonischemic cardiomyopathy to continue the current cardiac regimen. Cardiology patient will be moderate to high risk candidate for surgery. To keep her electrolytes especially potassium and magnesium normal range patient has high risk for arrhythmias. FEN-GI: Nutrition per dietitian. Renal: Labs and output were reviewed ID: Will de-escalate antibiotics according to clinical response Heme/Onc: Labs reviewed Endo: Glucose Monitored Integ/MSK: Skin Care per routine ICU Nursing Protocol to prevent ulcers. Lines: All lines examined without evidence of infection : Dispo: Critically ill CODE: Full code
--- NOTE | 2019-01-19 09:52 | Event Note ---
Date of Encounter: 01/19/19 Time of Encounter: 09:48 - Cardiology Event Note Plan for LHC for NSTEMI, cardiomyopathy. Patient is currently intubated and sedated. Called and spoke with , Bruno, risks versus benefits of LHC explained to , who states understanding and agrees to proceed. Of note, h emoglobin today 9.6, down from 15 on admission. Discussed with ICU team, recommend anemia work up. Discussed with Dr.Jennifer Baker, Will plan for diagnostic LHC with new anemia. Further recs pending LHC. HAS-BLED Score - Score Elderly: Age>65 years Medication usage predisposing to bleeding: Antiplatelet agents, NSAIDs, Anticoagulants Score: 2
[2019-01-19] MEDS ORDERED: Calcium Gluconate 1gm/50mL 1 GM/50 ML BAG IVPB PRN (11:33)
--- NOTE | 2019-01-19 11:53 | Internal Med Progress Note ---
Hospitalist Progress Note - Encounter Date of Encounter: 01/19/19 Time of Encounter: 11:47 - Subjective Interval History: Patient remains on full ventilatory support, sedated. She is planned for left heart catheterization today, diagnostic only. Chest tubes managed by cardiothoracic surgery. - Exam Vitals: Temp Pulse Resp BP Pulse Ox 97.9 F 69 11 99/56 95 01/19/19 07:45 01/19/19 11:00 01/19/19 11:40 01/19/19 11:00 01/19/19 11:40 Exam: General: intubated and sedated HEENT: no icterus, neck supple Chest: Dimin bs bilat bases, coarse rhonch Ht: RRR Abdomen: soft NT, ND, + BS, no HSMG Ext: No CCE, equal pulses, no calf swelling Neuro: sedated, + purposeful movements Skin: warm and dry Imp/Plan: 1. Acute Hypoxic Respiratory Failure: Severe COPD, PNA Currently intubated and sedated; Steroids, aerosols, antibiotics (Day # 6 Zosyn, Day #5 Doxycycline), Cefepime discontinued on 01/[address] -- pulmonary to follow. 1.5 PNA -Abx as outlined above -Blood cx neg 2. Spontaneous pneumothorax: 1. Chest tube placed at [facility]; current management per CTS 3. NSTEMI: Consult cardiology. ECHO showed EF of 20-25% with wall motion abnormalities, concern for Takotsubo cardiomyopathy Continue Heparin drip Diagnostic left heart catheterization today 4. UTI: Culture neg Continue antibiotics as outlined above for PNA which wuld cover most urinary pathogens as well 5. DVT prohylaxis: Heparin drip. 6. Hypernatremia -free wtaer replacment ordered, monitor - Assessment and Plan (1) Acute respiratory failure with hypoxia Current Visit: Yes Status: Acute (2) Secondary spontaneous pneumothorax Current Visit: Yes Status: Acute (3) COPD exacerbation Current Visit: Yes Status: Acute (4) Acute encephalopathy Current Visit: Yes Status: Acute (5) Cardiomyopathy Current Visit: Yes Status: Acute (6) NSTEMI (non-ST elevated myocardial infarction) Current Visit: Yes Status: Acute (7) Giant bullous emphysema Current Visit: Yes Status: Acute - Time Spent with Patient Total time spent is greater than 50% in coordination of care (as documented) at patient's floor/unit and/or counseling patient: Internal Medicine: Result - Labs CBC & Chem 7: 01/19/19 03:30 01/19/19 03:30 Labs: Short CBC 01/19/19 Range/Units 03:30 WBC 9.2 (4.3-11.1) K/mcL Hgb 9.6 L (11.5-15.4) g/dL Hct 31.1 L (35.3-44.9) % Plt Count 140 (140-400) K/mcL Neutrophils # 8.0 (1.6-8.9) K/mcL BMP 01/19/19 03:30 Sodium 146 H Potassium 4.4 Chloride 114 H Carbon Dioxide 27 BUN 36 H Creatinine 0.56 L Glucose 121 H Calcium 8.1 L - ABG Interpretation ABG results: ABG ABG pH 7.40 pH Units (7.32-7.45) 01/19/19 04:22 ABG pCO2 48 mmHg (35-45) H 01/19/19 04:22 ABG pO2 66 mmHg (85-104) L 01/19/19 04:22 ABG O2 Saturation 92 % (95-98) L 01/19/19 04:22 PT/INR, D-dimer PT 11.4 Seconds (9.4-12.1) 01/18/19 04:24 D-Dimer 1026 ng/mLFEU (0-500) H 01/13/19 20:29 - Impressions Impressions Chest CT 01/17/19 14:01 IMPRESSION: 1. Persistent right apical pneumothorax. 2. Extensive subcutaneous and mediastinal air. 3. Emphysema with biapical bulla. 4. Lingular and left lower lobe atelectasis or infiltrate. 5. Small posterior right effusion with right basilar atelectasis or infiltrate. D/ / 01/17/2019 14:48:30 Duran Carey MD / atif Interpreting Provider: Duran Carey MD - VTE Reasons for not Prescribing Prophylaxis: Not indicated-Anticoagulated or INR therapeutic Consult Discharge Plan - Plan Referrals: Lissette Chen, [employer] CONSULTANT [Primary Care Provider] - (5) Cardiomyopathy Qualifiers: Cardiomyopathy type: unspecified Qualified Code(s): I42.9 - Cardiomyopathy, unspecified
--- NOTE | 2019-01-19 13:49 | Cardiothoracic Progress Note ---
Date of Encounter: 01/19/19 Time of Encounter: 13:46 - Assessment and plan (1) Giant bullous emphysema Current Visit: Yes Status: Acute The assessment and plan as outlined above was discussed with the patient and/or family members who expressed understanding and agreement. All questions were answered. rounded with nurse, who updated me with cardiology plans today updated who is at bedside. continue current care. (2) Acute respiratory failure with hypoxia Current Visit: Yes Status: Acute The assessment and plan as outlined above was discussed with the patient and/or family members who expressed understanding and agreement. All questions were answered. (3) NSTEMI (non-ST elevated myocardial infarction) Current Visit: Yes Status: Acute The assessment and plan as outlined above was discussed with the patient and/or family members who expressed understanding and agreement. All questions were a nswered. Vital Signs, Last 4 Hours Temp Pulse Resp BP Pulse Ox 01/19/19 13:26 14 87/52 94 01/19/19 12:02 98.1 F 01/19/19 12:00 86 01/19/19 11:40 11 95 01/19/19 11:00 69 12 99/56 96 01/19/19 10:00 72 12 98/57 95 Oxgyen Flow Rate Oxygen Flow Rate (LPM) 15 Clinical Data, last 8 Hours Output, Chest Tube Drainage 0 Amount [Right Mid-Clavicular Chest] Output, Chest Tube Drainage 0 Amount [Right Mid-Clavicular Chest] Weight 01/17/19 01/18/19 01/19/19 23:59 23:59 23:59 Weight 57 kg 58 kg - Physical Examination General: Other (intuabed and sedated. responds to stimuli) HEENT: Atraumatic, Normocephaly, Trachea midline Cardiac: Reg Rate and Rhythm, Normal S1 and S2 Chest tubes: Minimal drainage, Crepitus Lungs: Decreased breath sounds Neuro: Alert and responsive, No focal deficits noted, Cranial nerves intact - Labs 01/19/19 03:30 01/19/19 03:30 Lab Results, Last 24 hours 01/19/19 01/19/19 01/19/19 03:30 03:30 03:30 WBC 9.2 Hgb 9.6 L Hct 31.1 L Plt Count 140 Sodium 146 H Potassium 4.4 Chloride 114 H Carbon Dioxide 27 BUN 36 H Creatinine 0.56 L Glucose 121 H Calcium 8.1 L Magnesium 2.3 - VTE Reasons for not Prescribing Prophylaxis: Not indicated-Anticoagulated or INR therapeutic Consult Discharge Plan - Plan Referrals: Lissette Chen, ARIANE [Primary Care Provider] -
[2019-01-19] MEDS: Potassium Phosphate 44 MEQ in 0.9 % Sodium Chloride 250 ML IVPB PRN (14:00)
--- NOTE | 2019-01-19 14:36 | Pre-Sedation Evaluation ---
Pre-sedation evaluation - Pre-sedation checklist Date of procedure: 01/17/19 Procedure: [facility] Recent Vitals: Last Vital Signs Temp 98.1 F 01/19/19 12:02 Pulse 75 01/19/19 14:00 Resp 14 01/19/19 14:00 BP 90/56 01/19/19 14:00 Pulse Ox 95 01/19/19 14:00 H&P (including ROS) documented in medical record: Yes Previous reaction to sedatives/anesthetics: No Dietary Status: NPO after Midnight ASA Classification *see protocol: CLASS III-Severe systemic disease Plan of Care: Pt appropriate candidate for procedure/moderate/conscious sedation, Risks/benefits of procedure/sedation discussed w/ patient/family Cardiac Registry (Cardio Only) - Functional Capacity Functional Capacity: < 4 METS (pt currently sedated, intubated on mechanical ventilation) - Clincal Frailty Scale Clinical Frailty Scale: Mildly Frail
--- NOTE | 2019-01-19 15:33 | Invasive Diagnostic Lab Proc ---
Name: Priya Andre Date of Study: 01/19/2019 Date: 1950 Ht: 63.0in Medical Record#: [id number] Age: 68 Wt: 125.66lb Gender: Female BSA: 1.59 Order #: [id number] BMI: 22.27 Physicians Procedure Physician: Abril Baker MD, [facility] Referring MD: Referring MD: Staff Name Position Time In Tu Hernandez RN Applications Development Consultant 02:44 PM Kg Arellano RT (R) Monitor 02:44 PM Abbie Arellano RT (R) Scrub 02:44 PM Luna Mckenna RT (R) Scrub 02:44 PM Indications Indication Other-Abnormal Test- ECHO Procedures Performed Procedure CORONARY ARTERY ANGIO S&I Pre-Procedure Checklist Informed consent is complete signed and on chart. H&P is on chart. ID band is on and ID verified with patient. Patient NPO for procedure The procedure was described for the patient and questions were answered. Blood Pressure: 153/88 ECG is on chart. Rhythm: NSR Plan of Care Patient will tolerate the procedure without complications. Adequate level of comfort will be maintained. Hemodynamics will remain stable Patient will recover from procedure without complications. Respiratory function will be maintained. Cardiac rhythm will remain stable. Patient temperature will be maintained. Patient and/or family have verbalized understanding of the procedure. Patient Education Chief Complaint/Reason for Test: Cardiac Cath Developmental Category: Geriatric (65+ years) Developmentally Appropriate for Age: Yes Learning Barriers: None Education Needs: Procedure Education Method: Verbal Information Taught: Cardiac Cath Educational Evaluation: Able to repeat information Intravenous Access Time IV Size Location DC'd Fluid/Drip Rate Units RN 02:47 PM 20g 1 1/4" Patent On Arrival Rt Antecubital Tu Hernnadez RN 02:47 PM 18g 1 1/4" Patent On Arrival Lt Wrist 0.9NaCl Tu Hernandez RN 02:47 PM 18g 1 1/4" Patent On Arrival Lt Antecubital Tu Hernandez RN Allergies No Known Allergies Vital Signs Time BP (mmHg) HR (bpm) O2 Sat. RR (bpm) LOC 02:55 PM 153 / 88 79 100 % 13 1 = Reflexes present/moves spontaneously 02:56 PM / % 1 = Reflexes present/moves spontaneously 03:03 PM 153 / 88 77 100 % 13 03:08 PM 114 / 74 72 100 % 13 03:13 PM 129 / 77 72 100 % 16 03:18 PM 129 / 76 74 100 % 10 03:11 PM / % 1 = Reflexes present/moves spontaneously Procedural Medications Time Medication Dose Units Method Given By 02:50 PM Fentanyl 150 mcg/hr Intravenous 02:50 PM versed 3 mg/hr Intravenous 02:51 PM Heparin 710 units/hr Intravenous 02:51 PM Presidex 0.5 mcg/kg/hr Intravenous 02:52 PM Potassium phosphate 40 ml/hr Intravenous 02:52 PM Oxygen L/min mechanical ventilator Tu Hernandez RN 03:07 PM Lidocaine 2% 20 ml Subcutaneous Abril Baker MD, [facility] ASA Classification: CLASS III- Severe systemic disease (i.e. prior AMI, diabetes with vascular complications, morbid obesity) Tony Score Preprocedure Postprocedure Activity 1- Moves 2 extremities sustained head lift Activity 1- Moves 2 extremities sustained head lift Circulation 1- SBP+/= 20 - 50 points of pre-anesthetic level Circulation 1- SBP+/= 20 - 50 points of pre-anesthetic level Consciousness 1- Responds to verbal stimuli drowsy Consciousness 1- Responds to verbal stimuli drowsy O2 Saturation 2- Able to maintain O2 satruation of 92% on room air O2 Saturation 2- Able to maintain O2 satruation of 92% on room air Respiratory 1- Labored or limited respiration requires airway Respiratory 1- Labored or limited respiration requires airway Total Score 6 Total Score 6 Contrast Agent: Isovue Diagnostic Contrast: 38 ml Total Contrast: 38 ml Fluoro Dose: 5 mGy Procedure Log Time Note Enter By 02:37 PM Patient charges- Angio tray pack, Navilyst 3mm J, Pulse Oximetry and ACIST tubing and transducer 02:44 PM Tu Hernandez RN Position: Applications Development Consultant Time in: 14:44 [email or web address] 02:44 PM Kg Arellano RT (R) Position: Monitor Time in: 14:44 [email or web address] 02:44 PM Abbie Arellano RT (R) Position: Scrub Time in: 14:44 [email or web address] 02:44 PM Luna Mckenna RT (R) Position: Scrub Time in: 14:44 [email or web address] 02:48 PM Pt arrived to orthodontic laboratory technician 2 at 14:48 [email or web address] 02:48 PM CathStat 02:50 PM Patient arrived at 14:50 with Fentanyl Intravenous drip @ 150 mcg/hr [email or web address] 02:51 PM Patient arrived at 14:50 with versed Intravenous drip @ 3 mg/hr [email or web address] 02:51 PM Patient arrived at 14:51 with Heparin Intravenous drip @ 710 units/hr [email or web address] 02:52 PM Patient arrived at 14:51 with Presidex Intravenous drip @ .5 mcg/kg/hr [email or web address] 02:52 PM Patient arrived at 14:52 with Potassium phosphate Intravenous drip @ 40 ml/hr [email or web address] 02:52 PM Case Delayed No [email or web address] 02:53 PM Time: 14:52 Oxygen on at L/min per mechanical ventilator by Tu Hernandez RN [email or web address] 02:54 PM Physician arrived 14:54 [email or web address] :55 PM ASA Class CLASS III- Severe systemic disease (i.e. prior AMI, diabetes with vascular complications, morbid obesity) [email or web address] 02:55 PM Meet and greet completed [email or web address] :55 PM Sign in performed according to hospital policy. Informed consent was obtained. [email or web address] 02:55 PM Procedure start 14:55 [email or web address] :55 PM Time: 14:55 Patient comfortable and pain free: Yes [email or web address] 02:56 PM Time: 14:55LOC: 1 = Reflexes present/moves spontaneously [email or web address] :56 PM Hair removed from procedure site in procedure lab using clippers. Bilateral groin prepped with Chloraprep by Abbie Arellano), then patient was draped. Skin intact. [email or web address] 02:58 PM Vitals capture started with the following parameters, Patient=Adult, Interval=5 min, Initial Fdbvmglm=664 mmHg, Deflation Rate=3 mmHg, Cuff placed on Right Arm 02:58 PM Recorded ECG: HR=92 Condition=Condition 1 03:02 PM Vitals capture started with the following parameters, Patient=Adult, Interval=5 min, Initial Sftxmbnr=703 mmHg, Deflation Rate=3 mmHg, Cuff placed on Right Arm 03:03 PM HR=77 bpm, BXZO=209/88 mmhg, EkU8=213.0 %, Resp=13 B/min 03:06 PM Pressure channel 1 zero failed. 03:06 PM Pressure channel 1 zeroed. 03:06 PM Time out was performed according to hospital policy. Conscious sedation and anesthesia was achieved (see medication log with in this report above) [email or web address] 03:08 PM Time: 15:07 20 ml Lidocaine 2% to right groin Subcutaneous Given by Abril Baker MD, [facility] [email or web address] 03:08 PM HR=72 bpm, UOXA=965/74 mmhg, VtC3=726.0 %, Resp=13 B/min 03:08 PM Access obtained by percutaneous puncture. 5Fr 10cm Terumo [place] sheath placed in right Femoral artery. [id number] [email or web address] 03:08 PM 0.035 145cm Navilyst 3mmJ wire [id number] [email or web address] 03:08 PM 5Fr FL 4 catheter inserted over the wire [facility] [email or web address] 03:09 PM LCA angiography performed in multiple views. [email or web address] 03:10 PM Recorded Pressure: Ao, HR=73, Condition=Condition 1 (Aorta) Ao 168/89/124 03:10 PM Time: 14:55 Patient comfortable and pain free: Yes [email or web address] 03:11 PM Time: 14:56LOC: 1 = Reflexes present/moves spontaneously [email or web address] 03:11 PM Catheter removed [email or web address] 03:11 PM 5Fr FR 4 catheter inserted over the wire [facility] [email or web address] 03:12 PM RCA angiography performed in multiple views. [email or web address] 03:12 PM Coronary Dominance: right [email or web address] 03:12 PM Catheter removed [email or web address] 03:13 PM Bolus angiogram of right Femoral complete: 4 ml/sec for a total of 7 mls [email or web address] 03:13 PM Procedure completed at 15:13 01/19/2019 [email or web address] 03:13 PM HR=72 bpm, OIJB=979/77 mmhg, HsN9=615.0 %, Resp=16 B/min 03:14 PM Arterial sheath pulled, Mynx closure device used and was Successful [id number] S/N. [email or web address] 03:18 PM HR=74 bpm, VQMX=438/76 mmhg, PnS6=982.0 %, Resp=10 B/min 03:18 PM Sign out completed: Radiation Dose 40.76 mGy, 5.35 Gy/cm2 Fluoro Time: 0.9 Isovue 370 - 200ml contrast 38 ml given by Abril Baker MD, [facility]. Complications: None. The patient was discharged out of the lab[facility] in stable condition. Sedation minutes 29. Cardiac Rehab Consult needed: No. Confirmed administered medications: Yes [email or web address] 03:18 PM Isovue 370 - 200ml,1 Bottle(s) used. [email or web address] 03:18 PM Estimated Blood Loss: less than 20cc [email or web address] 03:18 PM Post ECG NSR [email or web address] 03:18 PM Post Blood Pressure 129/76 [email or web address] 03:19 PM 15:19 Post Pulses Bilateral DP & PT 2+ [email or web address] 03:19 PM Information taught Cardiac Cath and Mynx [email or web address] 03:20 PM Education needs Procedure, Plan of Care, and Disease Process [email or web address] 03:20 PM Learning barriers :Sedated [email or web address] 03:20 PM Education Methods Verbal [email or web address] 03:20 PM Education evaluation Needs further instruction [email or web address] 03:20 PM Site status No bleeding/ No Hematoma - Rt Groin as reported by Luna Mckenna RT (R) at 15:20 [email or web address] 03:20 PM Opsite applied [email or web address] 03:20 PM Delay to floor No [email or web address] 03:20 PM Family placed in consult room. [email or web address] 03:20 PM Complications: None [email or web address] 03:20 PM Vitals capture stopped. 03:21 PM Lesion found in Proximal RCA. Pre Stenosis: 20 Pre MARYAM Flow: [email or web address] 03:21 PM Lesion found in Proximal Circumflex. Pre Stenosis: 30 Pre MARYAM Flow: [email or web address] 03:25 PM Report given to lamar TILLEY Pt taken to ICU Room #7. 15:22 [email or web address] 03:25 PM Time: 15:10 Patient comfortable and pain free: Yes [email or web address] 03:26 PM Time: 15:11LOC: 1 = Reflexes present/moves spontaneously [email or web address] 03:28 PM Patient out of room: 15:28 [email or web address] Complications Complication None None Hemodynamics Pressures Site Systolic/A Wave Diastolic/V Wave Mean AO 168 89 124 Post Procedure Information Blood Pressure: 129/76 mmHg Rhythm: NSR Post procedural instructions were given Closure Device Time Device Success/Fail 01/19/2019 3:14:00 PM MynxGrip Successful Site Checks Time Location Status Staff Sheath In? Note 03:20 PM Rt Groin No bleeding/ No Hematoma Luna Mckenna RT (R) Pulses Time Site Pre-Procedure Post-Procedure Note 01/19/2019 2:47:00 PM Bilateral DP & PT 2+ 3:19:00 PM Bilateral DP & PT 2+ Updated by Kg Arellano RT (R) on 01/19/2019 3:28:36 PM Kg Arellano RT electronically signed on 01/19/2019 3:28:57 PM with status of Final
--- NOTE | 2019-01-19 15:42 | Event Note ---
Date of Encounter: 01/19/19 Time of Encounter: 15:30 - Cardiology Event Note LHC completed, minimal CAD. 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 Continue asa, statin, BB, and ACEi. Transition Lopressor to Toprol XL when patient can tolerate PO. (currently crushed via OG). Discussed with Dr. Gregg, patient remains a high risk candidate for surgery. No further inpt recommendations, Cardiology will sign-off.
[2019-01-19 16:29] LABS: INR 1.2; Prothrombin Time 13.1 Seconds (9.4-12.1)
[2019-01-19 16:40] LABS: VBG Ionized Calcium 1.15 mmol/L (1.15-1.35)
[2019-01-19] MEDS ORDERED: Piperacillin/Tazobactam 3.375 GM VIAL ONE (16:50)
[2019-01-19] MEDS: Dexmedetomidine HCl 400 MCG/100 ML MLS IVC SCH (19:58)
[2019-01-19] MEDS: Heparin 25,000 UNIT/250 ML D5W 25,000 UNIT/250 ML IV.SOLN IVC SCH (20:49)
[2019-01-20] MEDS: Artificial Tears SOLN 15 ML BOTTLE BOTH EYES SCH ×6 (01:08→20:46)
[2019-01-20] MEDS: Piperacillin/Tazobactam 3.375 GM in 0.9 % Sodium Chloride Mini Bag 100 ML IVPB SCH ×3 (01:08→17:34)
[2019-01-20] MEDS: Ipratropium/Albuterol Neb 3 ML IH SCH ×6 (03:35→23:13)
[2019-01-20 04:55] LABS: ABG Base Excess 5 mEq/L (-2 to 3); ABG HCO3 31 mEq/L (21-27); ABG Oxygen Saturation 93 % (95-98); ABG PCO2 50 mmHg (35-45); ABG PH 7.39 pH Units (7.32-7.45); ABG PO2 69 mmHg (85-104); ABG TCO2 32 mEq/L (20-26); Blood Gas Modality ASSIST CONTROL; Blood Gas PEEP 0 cm H2O; Blood Gas VT 400 cc
[2019-01-20] MEDS: MethylPREDNISolone 40 MG/ML VIAL IVP SCH ×2 (05:09→17:34)
[2019-01-20] MEDS: Doxycycline 100 MG in 0.9 % Sodium Chloride Mini Bag 100 ML IVPB SCH (05:09)
[2019-01-20] MEDS: Dexmedetomidine HCl 400 MCG/100 ML MLS IVC SCH ×2 (05:10→20:12)
[2019-01-20 06:05] LABS: Basophils % 0.1 %; Hematocrit 30.4 % (35.3-44.9); Immature Granulocytes % 1.6 % (0-4); Lymphocytes # 0.5 K/mcL (0.6-4.6); Lymphocytes % 4.7 %; Mean Corpuscular HGB Conc 30.6 g/dL (31.6-35.5); Mean Corpuscular Hemoglobin 30.2 pg (28.0-33.3); Mean Corpuscular Volume 98.7 fL (83.0-100.0); Mean Platelet Volume 12.7 fL (9.4-12.4); Monocytes # 0.7 K/mcL (0.0-1.3); Monocytes % 7.2 %; Neutrophils # 8.7 K/mcL (1.6-8.9); Platelet Count 125 K/mcL (140-400); Red Blood Count 3.08 M/mcL (3.82-4.97); Red Cell Distribution Width 13.9 % (11.5-14.5); Segmented Neutrophils % 86.4 %; White Blood Count 10.1 K/mcL (4.3-11.1)
[2019-01-20 06:27] LABS: Hemoglobin 9.3 g/dL (11.5-15.4)
[2019-01-20 06:28] LABS: BUN/Creatinine Ratio 67 (6-26); Blood Urea Nitrogen 31 mg/dL (8-23); Carbon Dioxide 29 mEq/L (23-29); Chloride 109 mEq/L (98-107); Glucose 161 mg/dL (70-105); Osmolality,Calculated 308 (280-300); Potassium 4.3 mEq/L (3.5-5.1); Sodium 144 mEq/L (136-145); eGFR For African Americans > 60 (> 60); eGFR For Non-African Americans > 60 (> 60)
[2019-01-20 06:41] LABS: INR 1.2; Prothrombin Time 13.5 Seconds (9.4-12.1)
[2019-01-20 06:46] LABS: Activated Partial Thrombo Time 71.6 Seconds (26.0-36.0)
[2019-01-20 06:57] LABS: Phosphorous 3.2 mg/dL (2.7-4.5)
--- NOTE | 2019-01-20 07:03 | Pulmonology Progress Note ---
<Antonio Steiner L - Last Filed: 01/20/19 14:41> Date of Encounter: 01/20/19 Time of Encounter: 07:00 Assessment and Plan (1) Acute respiratory failure with hypoxia Current Visit: Yes Status: Acute Acute respiratory failure with hypoxia: - Secondary to pneumothorax/bullous emphysema - Remains intubated and sedated. - Chest tube in place. R side - Chest CT: Persistent right apical Pneumothorax. Extensive subcutaneous emphysema. Biapical bulla - CT surgery following - Low tidal volumes on SBT this a.m. (2) Anemia Current Visit: Yes Status: Acute Anemia - Acute drop in HGB 11.0>>9.6>>9.3 - No obvious source of bleeding - No recent bowel movements - Heparin gtt discontinued - INR 1.2 Qualifiers: Anemia type: unspecified type Qualified Code(s): D64.9 - Anemia, unspecified (3) NSTEMI (non-ST elevated myocardial infarction) Current Visit: Yes Status: Acute NSTEMI - Trop 1.03>>0.54 - EKG with inverted T waves - Cardiology following - Continue Heparin drip, ASA, statin, BB - Echo: LVEF 20-25% with wall motion abnormalities Takotsubo/stress induced cardiomyopathy - LHC: minimal CAD, likely NICMP - Cont ASA, statin, BB, ACEi - Heparin discontinued (4) Giant bullous emphysema Current Visit: Yes Status: Acute Giant bullous emphysema - Awaiting CT surgery recs - Continue vent support - Cont chest tube (5) Acute encephalopathy Current Visit: Yes Status: Acute Acute encephalopathy - Likely secondary to respiratory failure - Sedated, karoline goal 2-3 (6) COPD exacerbation Current Visit: Yes Status: Acute COPD - Duonebs q4 - Solumedrol 40 BID (7) Secondary spontaneous pneumothorax Current Visit: Yes Status: Acute Secondary Pneumothorax - Secondary to bullous emphysema - Chest tube in place. Minimal output (8) Leukocytosis Current Visit: Yes Status: Acute Leukocytosis - No clear infectious process - Blood and urine cultures, NGD - Doxycycline discontinued - Zosyn day 7 - Cefepime discontinued Qualifiers: Leukocytosis type: unspecified Qualified Code(s): D72.829 - Elevated white blood cell count, unspecified Subjective Principal diagnosis: Respiratory Failure Interval history: Patient seen and examined. No overnight events. Afebrile. She had left heart catheter performed yesterday that showed no obstruction, she does have nonischemic cardiac myopathy. Medical management recommended per cardiology. Cardiothoracic surgery is following. Patient did not do well on spontaneous breathing trial this a.m. Objective PUL Vital signs: Last Vital Signs Temp 98.3 F 01/20/19 04:46 Pulse 77 01/20/19 06:00 Resp 12 01/20/19 06:00 BP 86/54 01/20/19 06:00 Pulse Ox 96 01/20/19 06:00 Gen: Vitals noted. No acute distress. Intubated and sedated Eyes: anicteric sclerae, moist conjunctivae; no lid-lag; Pupils 3mm, round, equal, and reactive to light HENT: Atraumatic, normocephalic; oropharynx clear with moist mucous membranes and no mucosal ulcerations Neck: Trachea midline; supple, no thyromegaly or lymphadenopathy Cardiac: RRR, no murmurs, rubs or gallops, S1/S2 Pulmonary: no wheezes, rales or rhonchi, equal chest expansion. Diminished breath sounds BL Abdomen: soft, nondistended, no rigidity or guarding. No masses or hepatosplenomegaly MSK: ROM intact, no joint swelling noted Extremities: no BLE edema, nontender calf, no cyanosis or clubbing Skin: Normal temperature, turgor and texture; no ulcers or subcutaneous nodules. Extensive bruising of bilateral upper extremities. Subcutaneous emphysema improving on upper thorax and upper extremities. Neuro: moves all extremities, no focal deficits. Karoline 2-3 Psych: Appropriate mood and behavior Analgesia: fentanyl gtt Sedation: precedex gtt, versed gtt SBT: none Glycemic control: none Bowl regimen: none Activity: none Fluids: MIVF Electrolytes: replete as necessary Nutrition: Tube feeds GI ppx: PPI Lines: ET, OG, clayton, 2x PIV Consults: pulm, cardio, cardiothoracic surgery, IR Code: Full code Dispo: ICU Ventilator Settings Ventilator Settings: Ventilator Settings, Last 8 Hours Ventilator Tidal Volume 400 Setting Ventilator Tidal Volume 400 Setting Ventilator Tidal Volume 400 Setting Ventilator Tidal Volume 400 Setting Ventilator Tidal Volume 400 Setting Ventilator Tidal Volume 400 Setting Ventilator Tidal Volume 400 Setting Ventilator Tidal Volume 400 Setting Ventilator Tidal Volume 400 Setting Ventilator Tidal Volume 400 Setting Ventilator Tidal Volume 400 Setting Ventilator Tidal Volume 400 Setting Ventilator Respiratory Rate 10 Setting Ventilator Respiratory Rate 10 Setting Ventilator Respiratory Rate 10 Setting Ventilator Respiratory Rate 10 Setting Ventilator Respiratory Rate 10 Setting Ventilator Respiratory Rate 10 Setting Ventilator Respiratory Rate 10 Setting Ventilator Respiratory Rate 10 Setting Ventilator Respiratory Rate 10 Setting Ventilator Respiratory Rate 10 Setting Ventilator Respiratory Rate 10 Setting Ventilator Respiratory Rate 10 Setting Actual Respiratory Rate 13 Actual Respiratory Rate 11 Actual Respiratory Rate 11 Actual Respiratory Rate 12 Actual Respiratory Rate 10 Actual Respiratory Rate 10 Actual Respiratory Rate 10 Actual Respiratory Rate 10 Actual Respiratory Rate 10 Actual Respiratory Rate 11 Actual Respiratory Rate 13 Positive End Expiratory 0 Pressure Positive End Expiratory 0 Pressure Positive End Expiratory 0 Pressure Positive End Expiratory 0 Pressure Positive End Expiratory 0 Pressure Positive End Expiratory 0 Pressure Positive End Expiratory 0 Pressure Positive End Expiratory 0 Pressure Positive End Expiratory 0 Pressure Positive End Expiratory 0 Pressure Positive End Expiratory 0 Pressure Positive End Expiratory 0 Pressure Peak Inspiratory Airway 12 Pressure Peak Inspiratory Airway 1.3 Pressure Peak Inspiratory Airway 12 Pressure Peak Inspiratory Airway 12 Pressure Peak Inspiratory Airway 10 Pressure Peak Inspiratory Airway 12 Pressure Peak Inspiratory Airway 13 Pressure Peak Inspiratory Airway 13 Pressure Peak Inspiratory Airway 13 Pressure Peak Inspiratory Airway 14 Pressure Peak Inspiratory Airway 17 Pressure Results - Laboratory Findings CBC and BMP: 01/20/19 05:37 01/20/19 05:37 ABG ABG pH 7.39 pH Units (7.32-7.45) 01/20/19 04:52 ABG pCO2 50 mmHg (35-45) H 01/20/19 04:52 ABG pO2 69 mmHg (85-104) L 01/20/19 04:52 ABG O2 Saturation 93 % (95-98) L 01/20/19 04:52 PT/INR, D-dimer PT 13.5 Seconds (9.4-12.1) H 01/20/19 05:37 D-Dimer 1026 ng/mLFEU (0-500) H 01/13/19 20:29 Abnormal lab findings: Abnormal lab results WBC 16.3 K/mcL (4.3-11.1) H 01/18/19 04:24 RBC 3.08 M/mcL (3.82-4.97) L 01/20/19 05:37 Hgb 9.3 g/dL (11.5-15.4) L 01/20/19 05:37 Hct 30.4 % (35.3-44.9) L 01/20/19 05:37 MCV 100.5 fL (83.0-100.0) H 01/14/19 09:26 MCHC 30.6 g/dL (31.6-35.5) L 01/20/19 05:37 Plt Count 125 K/mcL (140-400) L 01/20/19 05:37 MPV 12.7 fL (9.4-12.4) H 01/20/19 05:37 Neutrophils # 14.2 K/mcL (1.6-8.9) H 01/18/19 04:24 Lymphocytes # 0.5 K/mcL (0.6-4.6) L 01/20/19 05:37 Nucleated RBCs/100 WBC 0.3 /100 WBC (0) H 01/13/19 23:51 Platelet Estimate Decreased (Normal) L 01/15/19 01:41 Clumped Platelets Few (Not Present) A 01/13/19 23:51 Immature Plt Fraction 15.7 % (1.1-6.1) H 01/19/19 03:30 PT 13.5 Seconds (9.4-12.1) H 01/20/19 05:37 APTT 71.6 Seconds (26.0-36.0) H D 01/20/19 05:37 D-Dimer 1026 ng/mLFEU (0-500) H 01/13/19 20:29 Heparin Anti-Xa, Unfract 0.24 IU/mL (0.30-0.70) L 01/17/19 05:40 ABG pH 7.29 pH Units (7.32-7.45) L 01/16/19 05:28 ABG pCO2 50 mmHg (35-45) H 01/20/19 04:52 ABG pO2 69 mmHg (85-104) L 01/20/19 04:52 ABG HCO3 31 mEq/L (21-27) H 01/20/19 04:52 ABG Total CO2 32 mEq/L (20-26) H 01/20/19 04:52 ABG O2 Saturation 93 % (95-98) L 01/20/19 04:52 ABG Base Excess 5 mEq/L (-2 to 3) H 01/20/19 04:52 Sodium 146 mEq/L (136-145) H 01/19/19 03:30 Chloride 109 mEq/L (98-107) H 01/20/19 05:37 Carbon Dioxide 22 mEq/L (23-29) L 01/18/19 04:24 BUN 31 mg/dL (8-23) H 01/20/19 05:37 Creatinine 0.46 mg/dL (0.60-1.20) L 01/20/19 05:37 BUN/Creatinine Ratio 67 (6-26) H 01/20/19 05:37 Glucose 161 mg/dL (70-105) H 01/20/19 05:37 POC Glucose 148 mg/dL (70-99) H 01/20/19 04:09 Calculated Osmolality 308 (280-300) H 01/20/19 05:37 Lactic Acid 3.0 mmol/L (0.5-2.2) H 01/14/19 09:26 Calcium 8.0 mg/dL (8.6-10.3) L 01/20/19 05:37 Phosphorus 1.8 mg/dL (2.7-4.5) L 01/18/19 04:24 Troponin I 0.54 ng/mL (< 0.04) H* 01/15/19 01:41 B-Natriuretic Peptide 121 pg/mL (Less than 100) H 01/13/19 20:07 Serum Total Protein 5.4 g/dL (6.4-8.9) L 01/18/19 04:24 Albumin 3.4 g/dL (3.5-5.7) L 01/18/19 04:24 Globulin 2.0 g/dL (2.4-3.5) L 01/18/19 04:24 Lipase 7 Units/L (11-82) L 01/13/19 20:07 Procalcitonin 1.89 ng/mL (0.00-0.15) H 01/14/19 09:26 Urine Clarity Turbid (Clear) A 01/14/19 02:40 Urine Protein 30 mg/dL (Neg-Trace) H 01/14/19 02:40 Urine Ketones 80 mg/dL (Negative) H 01/14/19 02:40 Urine Blood Large (Negative) H 01/14/19 02:40 Urine Bilirubin Small (Negative) H 01/14/19 02:40 Ur Leukocyte Esterase Trace (Negative) H 01/14/19 02:40 Urine Microscopic RBC TNTC per hpf (0-3) H 01/14/19 02:40 Urine Microscopic WBC 15-30 per hpf (0-3) H 01/14/19 02:40 Ur Squamous Epith Cells Many per lpf (None-Few) H 01/14/19 02:40 Ur Culture Indicated? YES (NO) A 01/14/19 02:40 - Microbiology Findings Microbiology Findings: Microbiology, Last 48 Hours 01/13/19 22:00 Blood Culture - Final Peripheral Venipuncture No growth. Final report. 01/13/19 22:30 Blood Culture - Final Peripheral Venipuncture No growth. Final report. - Clinical Findings Intake & Output: Intake & Output 01/19/19 01/19/19 01/20/19 15:59 23:59 07:59 Intake Total 332.6 / 1988.0 1280 / 1988.0 500 / 500 Output Total 355 / 1005 200 / 1005 400 / 400 Balance -22.4 / 983.0 1080 / 983.0 100 / 100 Weight 58.8 kg - VTE Reasons for not Prescribing Prophylaxis: Not indicated-Anticoagulated or INR therapeutic Consult Discharge Plan - Plan Referrals: Lissette Chen, APPLIQUE CUTTER [Primary Care Provider] - <Eloisa Campos - Last Filed: 01/20/19 16:03> Date of Encounter: 01/20/19 Objective PUL Vital signs: Last Vital Signs Temp 98.6 F 01/20/19 15:00 Pulse 87 01/20/19 15:16 Resp 8 01/20/19 15:00 BP 139/82 01/20/19 15:00 Pulse Ox 98 01/20/19 15:00 Ventilator Settings Ventilator Settings: Ventilator Settings, Last 8 Hours Ventilator Tidal Volume 400 Setting Ventilator Tidal Volume 400 Setting Ventilator Tidal Volume 400 Setting Ventilator Tidal Volume 400 Setting Ventilator Tidal Volume 400 Setting Ventilator Tidal Volume 400 Setting Ventilator Tidal Volume 400 Setting Ventilator Tidal Volume 400 Setting Ventilator Tidal Volume 400 Setting Ventilator Tidal Volume 400 Setting Ventilator Respiratory Rate 10 Setting Ventilator Respiratory Rate 10 Setting Ventilator Respiratory Rate 10 Setting Ventilator Respiratory Rate 10 Setting Ventilator Respiratory Rate 10 Setting Ventilator Respiratory Rate 10 Setting Ventilator Respiratory Rate 10 Setting Ventilator Respiratory Rate 10 Setting Ventilator Respiratory Rate 10 Setting Ventilator Respiratory Rate 10 Setting Actual Respiratory Rate 8 Actual Respiratory Rate 10 Actual Respiratory Rate 12 Actual Respiratory Rate 11 Actual Respiratory Rate 11 Actual Respiratory Rate 11 Actual Respiratory Rate 15 Actual Respiratory Rate 11 Actual Respiratory Rate 10 Actual Respiratory Rate 10 Actual Respiratory Rate 12 Positive End Expiratory 5 Pressure Positive End Expiratory 5 Pressure Positive End Expiratory 0 Pressure Positive End Expiratory 5 Pressure Positive End Expiratory 5 Pressure Positive End Expiratory 0 Pressure Positive End Expiratory 5 Pressure Positive End Expiratory 5 Pressure Positive End Expiratory 0 Pressure Positive End Expiratory 0 Pressure Positive End Expiratory 0 Pressure Peak Inspiratory Airway 17 Pressure Peak Inspiratory Airway 12 Pressure Peak Inspiratory Airway 11 Pressure Peak Inspiratory Airway 13 Pressure Peak Inspiratory Airway 12 Pressure Peak Inspiratory Airway 9 Pressure Peak Inspiratory Airway 7 Pressure Peak Inspiratory Airway 9 Pressure Peak Inspiratory Airway 13 Pressure Peak Inspiratory Airway 5 Pressure Peak Inspiratory Airway 5 Pressure Results - Laboratory Findings CBC and BMP: 01/20/19 05:37 01/20/19 05:37 ABG ABG pH 7.39 pH Units (7.32-7.45) 01/20/19 04:52 ABG pCO2 50 mmHg (35-45) H 01/20/19 04:52 ABG pO2 69 mmHg (85-104) L 01/20/19 04:52 ABG O2 Saturation 93 % (95-98) L 01/20/19 04:52 PT/INR, D-dimer PT 13.5 Seconds (9.4-12.1) H 01/20/19 05:37 D-Dimer 1026 ng/mLFEU (0-500) H 01/13/19 20:29 Abnormal lab findings: Abnormal lab results WBC 16.3 K/mcL (4.3-11.1) H 01/18/19 04:24 RBC 3.08 M/mcL (3.82-4.97) L 01/20/19 05:37 Hgb 9.3 g/dL (11.5-15.4) L 01/20/19 05:37 Hct 30.4 % (35.3-44.9) L 01/20/19 05:37 MCV 100.5 fL (83.0-100.0) H 01/14/19 09:26 MCHC 30.6 g/dL (31.6-35.5) L 01/20/19 05:37 Plt Count 125 K/mcL (140-400) L 01/20/19 05:37 MPV 12.7 fL (9.4-12.4) H 01/20/19 05:37 Neutrophils # 14.2 K/mcL (1.6-8.9) H 01/18/19 04:24 Lymphocytes # 0.5 K/mcL (0.6-4.6) L 01/20/19 05:37 Nucleated RBCs/100 WBC 0.3 /100 WBC (0) H 01/13/19 23:51 Platelet Estimate Decreased (Normal) L 01/15/19 01:41 Clumped Platelets Few (Not Present) A 01/13/19 23:51 Immature Plt Fraction 15.7 % (1.1-6.1) H 01/19/19 03:30 PT 13.5 Seconds (9.4-12.1) H 01/20/19 05:37 APTT 71.6 Seconds (26.0-36.0) H D 01/20/19 05:37 D-Dimer 1026 ng/mLFEU (0-500) H 01/13/19 20:29 Heparin Anti-Xa, Unfract 0.24 IU/mL (0.30-0.70) L 01/17/19 05:40 ABG pH 7.29 pH Units (7.32-7.45) L 01/16/19 05:28 ABG pCO2 50 mmHg (35-45) H 01/20/19 04:52 ABG pO2 69 mmHg (85-104) L 01/20/19 04:52 ABG HCO3 31 mEq/L (21-27) H 01/20/19 04:52 ABG Total CO2 32 mEq/L (20-26) H 01/20/19 04:52 ABG O2 Saturation 93 % (95-98) L 01/20/19 04:52 ABG Base Excess 5 mEq/L (-2 to 3) H 01/20/19 04:52 Sodium 146 mEq/L (136-145) H 01/19/19 03:30 Chloride 109 mEq/L (98-107) H 01/20/19 05:37 Carbon Dioxide 22 mEq/L (23-29) L 01/18/19 04:24 BUN 31 mg/dL (8-23) H 01/20/19 05:37 Creatinine 0.46 mg/dL (0.60-1.20) L 01/20/19 05:37 BUN/Creatinine Ratio 67 (6-26) H 01/20/19 05:37 Glucose 161 mg/dL (70-105) H 01/20/19 05:37 POC Glucose 133 mg/dL (70-99) H 01/20/19 10:51 Calculated Osmolality 308 (280-300) H 01/20/19 05:37 Lactic Acid 3.0 mmol/L (0.5-2.2) H 01/14/19 09:26 Calcium 8.0 mg/dL (8.6-10.3) L 01/20/19 05:37 Phosphorus 1.8 mg/dL (2.7-4.5) L 01/18/19 04:24 Troponin I 0.54 ng/mL (< 0.04) H* 01/15/19 01:41 B-Natriuretic Peptide 121 pg/mL (Less than 100) H 01/13/19 20:07 Serum Total Protein 5.4 g/dL (6.4-8.9) L 01/18/19 04:24 Albumin 3.4 g/dL (3.5-5.7) L 01/18/19 04:24 Globulin 2.0 g/dL (2.4-3.5) L 01/18/19 04:24 Lipase 7 Units/L (11-82) L 01/13/19 20:07 Procalcitonin 1.89 ng/mL (0.00-0.15) H 01/14/19 09:26 Urine Clarity Turbid (Clear) A 01/14/19 02:40 Urine Protein 30 mg/dL (Neg-Trace) H 01/14/19 02:40 Urine Ketones 80 mg/dL (Negative) H 01/14/19 02:40 Urine Blood Large (Negative) H 01/14/19 02:40 Urine Bilirubin Small (Negative) H 01/14/19 02:40 Ur Leukocyte Esterase Trace (Negative) H 01/14/19 02:40 Urine Microscopic RBC TNTC per hpf (0-3) H 01/14/19 02:40 Urine Microscopic WBC 15-30 per hpf (0-3) H 01/14/19 02:40 Ur Squamous Epith Cells Many per lpf (None-Few) H 01/14/19 02:40 Ur Culture Indicated? YES (NO) A 01/14/19 02:40 - Microbiology Findings Microbiology Findings: Microbiology, Last 48 Hours 01/13/19 22:00 Blood Culture - Final Peripheral Venipuncture No growth. Final report. 01/13/19 22:30 Blood Culture - Final Peripheral Venipuncture No growth. Final report. - Clinical Findings Intake & Output: Intake & Output 01/19/19 01/20/19 01/20/19 23:59 07:59 15:59 Intake Total 1280 / 1988.0 845 / 1627 782 / 1627 Output Total 200 / 1005 550 / 775 225 / 775 Balance 1080 / 983.0 295 / 852 557 / 852 Weight 58.8 kg - Attending Attestation - Attending Attestation I saw and evaluated this patient and my medical decision-making was reviewed with the Resident Physician. I agree with the documented findings, disposition and treatment plan as described except to the extent set forth below. We independently had [id number] contact with the patient I spent 33 minutes of Critical Care time with this patient. It involved decision making of high complexity to assess, manipulate, and support vital org an system failure and/or to prevent further life threatening deterioration of the patient's condition. The time involved in the performance of separately reportable procedures was not counted toward critical care time. Patient seen and examined at bedside Labs, radiology, chart personally reviewed. Management was reviewed during multidisciplinary critical care rounds. [employer]: Patient is conscious and she is awake and alert and she understands her disease process patient does not show any evidence of encephalopathy no evidence of focal neurological deficit Pulm: Patient has acceptable oxygenation and ventilation patient has severe COPD with bullous emphysema with spontaneous pneumothorax patient has chest tube not much leak cardiothoracic surgery is following patient will need to surgical intervention at some point during this current illness. Cardiothoracic surgery wanted to cardiac clearance before surgery. 01/20 patient had cardiac catheterization showed minimal coronary artery disease most likely this all due to nonischemic cardiomyopathy. Patient has acceptable oxygenation and ventilation with low tidal volume strategy. Patient needed a higher pressure support to maintain a decent minute ventilation discuss with the respiratory therapist to do smart care pressure support ventilation. Cards: Patient had EF of 20-25% with wall motion abnormalities patient had a cardiac catheterization which showed mild coronary artery disease most likely nonischemic cardiomyopathy to continue the current cardiac regimen. Cardiology patient will be moderate to high risk candidate for surgery. To keep her electrolytes especially potassium and magnesium normal range patient has high risk for arrhythmias. 01/20 patient has nonischemic cardiomyopathy patient will be a moderate to high risk candidate for surgery. To keep the electrolytes are within normal limits FEN-GI: Nutrition per dietitian. Renal: Labs and output were reviewed ID: Will de-escalate antibiotics according to clinical response Heme/Onc: Labs reviewed Endo: Glucose Monitored Integ/MSK: Skin Care per routine ICU Nursing Protocol to prevent ulcers. Lines: All lines examined without evidence of infection : Dispo: Critically ill CODE: Full code
[2019-01-20] MEDS: FentaNYL (PF) 1,000 MCG in 0.9 % Sodium Chloride 80 ML IVC SCH ×2 (07:09→20:12)
--- NOTE | 2019-01-20 08:41 | Cardiothoracic Progress Note ---
Date of Encounter: 01/20/19 Time of Encounter: 08:39 - Assessment and plan (1) Giant bullous emphysema Current Visit: Yes Status: Acute The assessment and plan as outlined above was discussed with the patient and/or family members who expressed understanding and agreement. All questions were answered. rounded with nurse, will order a chest xray for today . (2) Acute respiratory failure with hypoxia Current Visit: Yes Status: Acute The assessment and plan as outlined above was discussed with the patient and/or family members who expressed understanding and agreement. All questions were answered. (3) NSTEMI (non-ST elevated myocardial infarction) Current Visit: Yes Status: Acute The assessment and plan as outlined above was discussed with the patient and/or family members who expressed understanding and agreement. All questions were answered. cardiac progress note reviewed. Vital Signs, Last 4 Hours Temp Pulse Resp BP Pulse Ox 01/20/19 08:00 82 12 108/62 96 01/20/19 07:05 98.3 F 01/20/19 07:00 74 11 89/58 97 01/20/19 06:00 77 12 86/54 96 01/20/19 05:21 11 116/54 96 01/20/19 05:00 78 11 116/54 96 01/20/19 04:46 98.3 F Oxgyen Flow Rate Oxygen Flow Rate (LPM) 15 Clinical Data, last 8 Hours Output, Chest Tube Drainage 0 Amount [Right Mid-Clavicular Chest] Output, Chest Tube Drainage 0 Amount [Right Mid-Clavicular Chest] Output, Chest Tube Drainage 0 Amount [Right Mid-Clavicular Chest] Output, Chest Tube Drainage 0 Amount [Right Mid-Clavicular Chest] Weight 01/18/19 01/19/19 01/20/19 23:59 23:59 23:59 Weight 58 kg 58.8 kg - Physical Examination General: Other (intubated and follows commands . nods appropriately to questions ) Neck: No JVD Cardiac: Reg Rate and Rhythm, Normal S1 and S2 Chest tubes: Minimal drainage, Crepitus, Other (crepitus is stable ) Lungs: Decreased breath sounds Neuro: No focal deficits noted Abdomen: Soft, Non-tender - Labs 01/20/19 05:37 01/20/19 05:37 Lab Results, Last 24 hours 01/19/19 01/20/19 01/20/19 15:53 05:37 05:37 WBC 10.1 Hgb 9.3 L Hct 30.4 L Plt Count 125 L INR 1.2 1.2 APTT 71.6 H D Sodium Potassium Chloride Carbon Dioxide BUN Creatinine Glucose Calcium 01/20/19 05:37 WBC Hgb Hct Plt Count INR APTT Sodium 144 Potassium 4.3 Chloride 109 H Carbon Dioxide 29 BUN 31 H Creatinine 0.46 L Glucose 161 H Calcium 8.0 L - VTE Reasons for not Prescribing Prophylaxis: Not indicated-Anticoagulated or INR therapeutic Consult Discharge Plan - Plan Referrals: Lissette Chen, INTELLIGENCE OFFICER [Primary Care Provider] -
[2019-01-20] MEDS: Aspirin 81 MG TAB.CHEW GTUBE SCH (08:42)
[2019-01-20] MEDS: Pantoprazole 40 MG VIAL IVP SCH (08:43)
[2019-01-20] MEDS: Chlorhexidine Rinse 15 ML MOUTHWASH MM SCH ×2 (08:43→20:46)
[2019-01-20] MEDS ORDERED: *HR* Propofol 200 MG/20 ML VIAL IVP ONE (09:21)
[2019-01-20] MEDS ORDERED: *HR* Etomidate 40 MG/20 ML VIAL IVP ONE (09:21)
[2019-01-20] MEDS ORDERED: *HR* Midazolam HCl 5 MG/5 ML VIAL IVP ONE (09:21)
[2019-01-20] MEDS ORDERED: *HR* Succinylcholine 200 MG/10 ML VIAL IVP ONE (09:21)
--- NOTE | 2019-01-20 14:38 | Internal Med Progress Note ---
Hospitalist Progress Note - Encounter Date of Encounter: 01/20/19 Time of Encounter: 14:36 - Subjective Interval History: Cardiac catheterization showed nonobstructive disease consistent with nonischemic cardiomyopathy. Patient remains on ventilatory support. Cardiothoracic surgery is following. Patient does deny any chest pain or shortness of breath. She denies any pain or discomfort. Review of Systems is limited as patient is sedated and ventilated - Exam Vitals: Temp Pulse Resp BP Pulse Ox 99.0 F 84 10 125/76 97 01/20/19 10:49 01/20/19 13:00 01/20/19 13:00 01/20/19 13:00 01/20/19 13:00 Exam: General: intubated and sedated, able to follow simple commands and nod yes/no to simple questions Neck supple OP moist HEENT: no icterus, neck supple Chest: Dimin bs bilat bases, coarse rhonchi ant cummins Ht: RRR Abdomen: soft NT, ND, + BS, no HSMG Ext: No CCE, equal pulses, no calf swelling Neuro: sedated, + purposeful movements Skin: warm and dry Imp/Plan: Acute Hypoxic Respiratory Failure: Severe COPD, PNA Currently intubated and sedated; Steroids, aerosols, antibiotics (Day # 7 Zosyn, Day #6 Doxycycline (stopped today), Cefepime discontinued on 01/[address] -- pulmonary/CTS to follow. PNA -Abx as outlined above -Blood cx neg Spontaneous pneumothorax: 1. Chest tube placed at [facility]; current management per CTS NSTEMI: Cardiology following ECHO showed EF of 20-25% with wall motion abnormalities, concern for Takotsubo cardiomyopathy left heart catheterization showed nonobx CAD, hep gtt stopped Acute on chronic systolic CHF -ERIKA Inhibitor -BB -monitor -?future AICD if no recovery UTI: Culture neg Continue antibiotics as outlined above for PNA which wuld cover most urinary pathogens as well DVT prohylaxis: -SubQ Heparin 6. Hypernatremia -free wtaer replacment ordered, monitor - Time Spent with Patient Total time spent is greater than 50% in coordination of care (as documented) at patient's floor/unit and/or counseling patient: Greater than 35 minutes Internal Medicine: Result - Labs CBC & Chem 7: 01/20/19 05:37 01/20/19 05:37 Labs: Short CBC 01/20/19 Range/Units 05:37 WBC 10.1 (4.3-11.1) K/mcL Hgb 9.3 L (11.5-15.4) g/dL Hct 30.4 L (35.3-44.9) % Plt Count 125 L (140-400) K/mcL Neutrophils # 8.7 (1.6-8.9) K/mcL BMP 01/20/19 05:37 Sodium 144 Potassium 4.3 Chloride 109 H Carbon Dioxide 29 BUN 31 H Creatinine 0.46 L Glucose 161 H Calcium 8.0 L - ABG Interpretation ABG results: ABG ABG pH 7.39 pH Units (7.32-7.45) 01/20/19 04:52 ABG pCO2 50 mmHg (35-45) H 01/20/19 04:52 ABG pO2 69 mmHg (85-104) L 01/20/19 04:52 ABG O2 Saturation 93 % (95-98) L 01/20/19 04:52 PT/INR, D-dimer PT 13.5 Seconds (9.4-12.1) H 01/20/19 05:37 D-Dimer 1026 ng/mLFEU (0-500) H 01/13/19 20:29 - Impressions Impressions Chest X-Ray 01/20/19 11:11 IMPRESSION: Stable chest including support hardware. Hyperlucent left upper lung compatible with large emphysematous bulla. No pneumothorax appreciated. D/ / 01/20/2019 12:09:16 Kenneth Koch MD / atif Interpreting Provider: Kenneth Koch MD - VTE Reasons for not Prescribing Prophylaxis: Not indicated-Anticoagulated or INR therapeutic Consult Discharge Plan - Plan Referrals: Lissette Chen CNP [Primary Care Provider] -
[2019-01-20] MEDS: *HR* Heparin 5,000 UNIT/ML VIAL SQ SCH (17:34)
[2019-01-21] MEDS: Artificial Tears SOLN 15 ML BOTTLE BOTH EYES SCH ×7 (00:12→23:09)
[2019-01-21] MEDS: Dexmedetomidine HCl 400 MCG/100 ML MLS IVC SCH ×2 (02:10→19:42)
[2019-01-21] MEDS: FentaNYL (PF) 1,000 MCG in 0.9 % Sodium Chloride 80 ML IVC SCH ×2 (02:10→21:13)
[2019-01-21] MEDS: Piperacillin/Tazobactam 3.375 GM in 0.9 % Sodium Chloride Mini Bag 100 ML IVPB SCH ×3 (02:10→17:29)
[2019-01-21] MEDS: Ipratropium/Albuterol Neb 3 ML IH SCH ×5 (03:01→20:32)
[2019-01-21 04:40] LABS: Basophils % 0.1 %; Hematocrit 29.5 % (35.3-44.9); Hemoglobin 9.3 g/dL (11.5-15.4); Immature Granulocytes % 3.3 % (0-4); Lymphocytes # 0.6 K/mcL (0.6-4.6); Lymphocytes % 3.8 %; Mean Corpuscular HGB Conc 31.5 g/dL (31.6-35.5); Mean Corpuscular Hemoglobin 30.8 pg (28.0-33.3); Mean Corpuscular Volume 97.7 fL (83.0-100.0); Mean Platelet Volume 13.1 fL (9.4-12.4); Monocytes # 1.4 K/mcL (0.0-1.3); Monocytes % 9.3 %; Neutrophils # 12.1 K/mcL (1.6-8.9); Nucleated Red Blood Cells 0.1 /100 WBC (0); Platelet Count 138 K/mcL (140-400); Red Blood Count 3.02 M/mcL (3.82-4.97); Red Cell Distribution Width 14.1 % (11.5-14.5); Segmented Neutrophils % 83.5 %; White Blood Count 14.6 K/mcL (4.3-11.1)
[2019-01-21 04:44] LABS: ABG Base Excess 7 mEq/L (-2 to 3); ABG HCO3 32 mEq/L (21-27); ABG Oxygen Saturation 98 % (95-98); ABG PCO2 45 mmHg (35-45); ABG PH 7.46 pH Units (7.32-7.45); ABG PO2 102 mmHg (85-104); ABG TCO2 33 mEq/L (20-26); Blood Gas Modality VC; Blood Gas PEEP 5 cm H2O; Blood Gas VT 400 cc
[2019-01-21 04:48] LABS: INR 1.1; Prothrombin Time 12.4 Seconds (9.4-12.1)
[2019-01-21 05:00] LABS: BUN/Creatinine Ratio 70 (6-26); Blood Urea Nitrogen 32 mg/dL (8-23); Calcium 8.1 mg/dL (8.6-10.3); Carbon Dioxide 30 mEq/L (23-29); Chloride 107 mEq/L (98-107); Glucose 186 mg/dL (70-105); Magnesium 2.4 mg/dL (1.6-2.6); Osmolality,Calculated 304 (280-300); Phosphorous 2.4 mg/dL (2.7-4.5); Potassium 4.2 mEq/L (3.5-5.1); Sodium 141 mEq/L (136-145); eGFR For African Americans > 60 (> 60); eGFR For Non-African Americans > 60 (> 60)
[2019-01-21] MEDS: *HR* Heparin 5,000 UNIT/ML VIAL SQ SCH ×2 (05:41→17:30)
[2019-01-21] MEDS: MethylPREDNISolone 40 MG/ML VIAL IVP SCH ×2 (05:41→17:30)
[2019-01-21] MEDS: Potassium Phosphate 44 MEQ in 0.9 % Sodium Chloride 250 ML IVPB PRN (06:31)
--- NOTE | 2019-01-21 07:09 | Pulmonology Progress Note ---
<Mynor Stein L - Last Filed: 01/21/19 13:52> Date of Encounter: 01/21/19 Time of Encounter: 07:09 Assessment and Plan (1) Acute respiratory failure with hypoxia Current Visit: Yes Status: Acute Acute respiratory failure with hypoxia: - Secondary to pneumothorax/bullous emphysema - Remains intubated and sedated. - Chest tube in place. R side, minimal oiutput - Chest CT: Persistent right apical Pneumothorax. subcutaneous emphysema improv ing. Biapical bulla - CT surgery following - SBT this a.m. Plan for extubation to BiPAP (2) Anemia Current Visit: Yes Status: Acute Anemia - Acute drop in HGB 11.0>>9.6>>9.3>>9.3 - No obvious source of bleeding - No recent bowel movements - Heparin gtt discontinued - INR 1.1 Qualifiers: Anemia type: unspecified type Qualified Code(s): D64.9 - Anemia, unspecified (3) NSTEMI (non-ST elevated myocardial infarction) Current Visit: Yes Status: Acute NSTEMI - Trop 1.03>>0.54 - EKG with inverted T waves - Cardiology following - Continue Heparin drip, ASA, statin, BB - Echo: LVEF 20-25% with wall motion abnormalities Takotsubo/stress induced cardiomyopathy - LHC: minimal CAD, likely NICMP - Cont ASA, statin, BB, ACEi - Heparin discontinued (4) Giant bullous emphysema Current Visit: Yes Status: Acute Giant bullous emphysema - Awaiting CT surgery recs - Continue vent support - Cont chest tube (5) Acute encephalopathy Current Visit: Yes Status: Acute Acute encephalopathy - Likely secondary to respiratory failure - Will wean sedation after extubation (6) COPD exacerbation Current Visit: Yes Status: Acute COPD - Duonebs q4 - Solumedrol 40 BID (7) Secondary spontaneous pneumothorax Current Visit: Yes Status: Acute Secondary Pneumothorax - Secondary to bullous emphysema - Chest tube in place. Minimal output (8) Leukocytosis Current Visit: Yes Status: Acute Leukocytosis - No clear infectious process - Blood and urine cultures, final cultures no growth - Zosyn day 7 Qualifiers: Leukocytosis type: unspecified Qualified Code(s): D72.829 - Elevated white blood cell count, unspecified Subjective Principal diagnosis: Respiratory Failure Interval history: She is in exam. Afebrile. No overnight events. Patient appears to be improving clinically. She is on spontaneous breathing trial this morning and is doing well. She denies any pain or respiratory difficulty. Urine output has been minimal, no bowel movements. Objective PUL Vital signs: Last Vital Signs Temp 98.5 F 01/21/19 04:11 Pulse 82 01/21/19 06:00 Resp 10 01/21/19 06:00 BP 154/80 01/21/19 06:00 Pulse Ox 96 01/21/19 06:00 Gen: Vitals noted. No acute distress. Intubated Eyes: anicteric sclerae, moist conjunctivae; no lid-lag; Pupils 3mm, round, equal, and reactive to light HENT: Atraumatic, normocephalic; oropharynx clear with moist mucous membranes and no mucosal ulcerations Neck: Trachea midline; supple, no thyromegaly or lymphadenopathy Cardiac: RRR, no murmurs, rubs or gallops, S1/S2 Pulmonary: no wheezes, rales or rhonchi, equal chest expansion. Diminished breath sounds BL Abdomen: soft, nondistended, no rigidity or guarding. No masses or hepatosplenomegaly MSK: ROM intact, no joint swelling noted Extremities: no BLE edema, nontender calf, no cyanosis or clubbing Skin: Normal temperature, turgor and texture; no ulcers or subcutaneous nodules. Extensive bruising of bilateral upper extremities. Subcutaneous emphysema mostly resolved on upper thorax and upper extremities. Neuro: moves all extremities, no focal deficits. [place] 2 Psych: Appropriate mood and behavior Analgesia: fentanyl gtt Sedation: precedex SBT: none Glycemic control: none Bowl regimen: none Activity: none Fluids: MIVF Electrolytes: replete as necessary Nutrition: Tube feeds GI ppx: PPI Lines: ET, OG, clayton, 2x PIV Consults: pulm, cardio, cardiothoracic surgery, IR Code: Full code Dispo: ICU Ventilator Settings Ventilator Settings: Ventilator Settings, Last 8 Hours Ventilator Tidal Volume 400 Setting Ventilator Tidal Volume 400 Setting Ventilator Tidal Volume 400 Setting Ventilator Tidal Volume 400 Setting Ventilator Tidal Volume 400 Setting Ventilator Tidal Volume 400 Setting Ventilator Tidal Volume 400 Setting Ventilator Tidal Volume 400 Setting Ventilator Tidal Volume 400 Setting Ventilator Tidal Volume 400 Setting Ventilator Respiratory Rate 10 Setting Ventilator Respiratory Rate 10 Setting Ventilator Respiratory Rate 10 Setting Ventilator Respiratory Rate 10 Setting Ventilator Respiratory Rate 10 Setting Ventilator Respiratory Rate 10 Setting Ventilator Respiratory Rate 10 Setting Ventilator Respiratory Rate 10 Setting Ventilator Respiratory Rate 10 Setting Ventilator Respiratory Rate 10 Setting Actual Respiratory Rate 9 Actual Respiratory Rate 17 Actual Respiratory Rate 10 Actual Respiratory Rate 11 Actual Respiratory Rate 17 Actual Respiratory Rate 13 Actual Respiratory Rate 16 Actual Respiratory Rate 14 Actual Respiratory Rate 11 Actual Respiratory Rate 13 Positive End Expiratory 5 Pressure Positive End Expiratory 5 Pressure Positive End Expiratory 5 Pressure Positive End Expiratory 5 Pressure Positive End Expiratory 5 Pressure Positive End Expiratory 5 Pressure Positive End Expiratory 5 Pressure Positive End Expiratory 5 Pressure Positive End Expiratory 5 Pressure Positive End Expiratory 5 Pressure Positive End Expiratory 5 Pressure Positive End Expiratory 5 Pressure Peak Inspiratory Airway 17 Pressure Peak Inspiratory Airway 7.4 Pressure Peak Inspiratory Airway 17 Pressure Peak Inspiratory Airway 7.4 Pressure Peak Inspiratory Airway 6.6 Pressure Peak Inspiratory Airway 11 Pressure Peak Inspiratory Airway 5.9 Pressure Peak Inspiratory Airway 6.1 Pressure Peak Inspiratory Airway 11 Pressure Peak Inspiratory Airway 10 Pressure Results - Laboratory Findings CBC and BMP: 01/21/19 04:09 01/21/19 04:09 ABG ABG pH 7.46 pH Units (7.32-7.45) H 01/21/19 04:29 ABG pCO2 45 mmHg (35-45) 01/21/19 04:29 ABG pO2 102 mmHg (85-104) 01/21/19 04:29 ABG O2 Saturation 98 % (95-98) 01/21/19 04:29 PT/INR, D-dimer PT 12.4 Seconds (9.4-12.1) H 01/21/19 04:09 D-Dimer 1026 ng/mLFEU (0-500) H 01/13/19 20:29 Abnormal lab findings: Abnormal lab results WBC 14.6 K/mcL (4.3-11.1) H 01/21/19 04:09 RBC 3.02 M/mcL (3.82-4.97) L 01/21/19 04:09 Hgb 9.3 g/dL (11.5-15.4) L 01/21/19 04:09 Hct 29.5 % (35.3-44.9) L 01/21/19 04:09 MCV 100.5 fL (83.0-100.0) H 01/14/19 09:26 MCHC 31.5 g/dL (31.6-35.5) L 01/21/19 04:09 Plt Count 138 K/mcL (140-400) L 01/21/19 04:09 MPV 13.1 fL (9.4-12.4) H 01/21/19 04:09 Neutrophils # 12.1 K/mcL (1.6-8.9) H 01/21/19 04:09 Lymphocytes # 0.5 K/mcL (0.6-4.6) L 01/20/19 05:37 Monocytes # 1.4 K/mcL (0.0-1.3) H 01/21/19 04:09 Nucleated RBCs/100 WBC 0.1 /100 WBC (0) H 01/21/19 04:09 Platelet Estimate Decreased (Normal) L 01/15/19 01:41 Clumped Platelets Few (Not Present) A 01/13/19 23:51 Immature Plt Fraction 15.7 % (1.1-6.1) H 01/19/19 03:30 PT 12.4 Seconds (9.4-12.1) H 01/21/19 04:09 APTT 71.6 Seconds (26.0-36.0) H D 01/20/19 05:37 D-Dimer 1026 ng/mLFEU (0-500) H 01/13/19 20:29 Heparin Anti-Xa, Unfract 0.01 IU/mL (0.30-0.70) L 01/20/19 22:17 ABG pH 7.46 pH Units (7.32-7.45) H 01/21/19 04:29 ABG pCO2 50 mmHg (35-45) H 01/20/19 04:52 ABG pO2 69 mmHg (85-104) L 01/20/19 04:52 ABG HCO3 32 mEq/L (21-27) H 01/21/19 04:29 ABG Total CO2 33 mEq/L (20-26) H 01/21/19 04:29 ABG O2 Saturation 93 % (95-98) L 01/20/19 04:52 ABG Base Excess 7 mEq/L (-2 to 3) H 01/21/19 04:29 Sodium 146 mEq/L (136-145) H 01/19/19 03:30 Chloride 109 mEq/L (98-107) H 01/20/19 05:37 Carbon Dioxide 30 mEq/L (23-29) H 01/21/19 04:09 BUN 32 mg/dL (8-23) H 01/21/19 04:09 Creatinine 0.46 mg/dL (0.60-1.20) L 01/21/19 04:09 BUN/Creatinine Ratio 70 (6-26) H 01/21/19 04:09 Glucose 186 mg/dL (70-105) H 01/21/19 04:09 POC Glucose 161 mg/dL (70-99) H 01/21/19 05:12 Calculated Osmolality 304 (280-300) H 01/21/19 04:09 Lactic Acid 3.0 mmol/L (0.5-2.2) H 01/14/19 09:26 Calcium 8.1 mg/dL (8.6-10.3) L 01/21/19 04:09 Phosphorus 2.4 mg/dL (2.7-4.5) L 01/21/19 04:09 Troponin I 0.54 ng/mL (< 0.04) H* 01/15/19 01:41 B-Natriuretic Peptide 121 pg/mL (Less than 100) H 01/13/19 20:07 Serum Total Protein 5.4 g/dL (6.4-8.9) L 01/18/19 04:24 Albumin 3.4 g/dL (3.5-5.7) L 01/18/19 04:24 Globulin 2.0 g/dL (2.4-3.5) L 01/18/19 04:24 Lipase 7 Units/L (11-82) L 01/13/19 20:07 Procalcitonin 1.89 ng/mL (0.00-0.15) H 01/14/19 09:26 Urine Clarity Turbid (Clear) A 01/14/19 02:40 Urine Protein 30 mg/dL (Neg-Trace) H 01/14/19 02:40 Urine Ketones 80 mg/dL (Negative) H 01/14/19 02:40 Urine Blood Large (Negative) H 01/14/19 02:40 Urine Bilirubin Small (Negative) H 01/14/19 02:40 Ur Leukocyte Esterase Trace (Negative) H 01/14/19 02:40 Urine Microscopic RBC TNTC per hpf (0-3) H 01/14/19 02:40 Urine Microscopic WBC 15-30 per hpf (0-3) H 01/14/19 02:40 Ur Squamous Epith Cells Many per lpf (None-Few) H 01/14/19 02:40 Ur Culture Indicated? YES (NO) A 01/14/19 02:40 - Clinical Findings Intake & Output: Intake & Output 01/20/19 01/20/19 01/21/19 15:59 23:59 07:59 Intake Total 782 / 2396 769 / 2396 705 / 705 Output Total 225 / 975 200 / 975 275 / 275 Balance 557 / 1421 569 / 1421 430 / 430 Weight 59.8 kg - VTE Reasons for not Prescribing Prophylaxis: Not indicated-Anticoagulated or INR therapeutic Consult Discharge Plan - Plan Referrals: Lissette Chen CNP [Primary Care Provider] - <Eloisa Campos - Last Filed: 01/21/19 23:12> Date of Encounter: 01/21/19 Objective PUL Vital signs: Last Vital Signs Temp 99.4 F 01/21/19 19:00 Pulse 83 01/21/19 21:00 Resp 18 01/21/19 21:00 BP 139/66 01/21/19 21:00 Pulse Ox 100 01/21/19 21:00 Results - Laboratory Findings CBC and BMP: 01/21/19 04:09 01/21/19 04:09 ABG ABG pH 7.46 pH Units (7.32-7.45) H 01/21/19 04:29 ABG pCO2 45 mmHg (35-45) 01/21/19 04:29 ABG pO2 102 mmHg (85-104) 01/21/19 04:29 ABG O2 Saturation 98 % (95-98) 01/21/19 04:29 PT/INR, D-dimer PT 12.4 Seconds (9.4-12.1) H 01/21/19 04:09 D-Dimer 1026 ng/mLFEU (0-500) H 01/13/19 20:29 Abnormal lab findings: Abnormal lab results WBC 14.6 K/mcL (4.3-11.1) H 01/21/19 04:09 RBC 3.02 M/mcL (3.82-4.97) L 01/21/19 04:09 Hgb 9.3 g/dL (11.5-15.4) L 01/21/19 04:09 Hct 29.5 % (35.3-44.9) L 01/21/19 04:09 MCV 100.5 fL (83.0-100.0) H 01/14/19 09:26 MCHC 31.5 g/dL (31.6-35.5) L 01/21/19 04:09 Plt Count 138 K/mcL (140-400) L 01/21/19 04:09 MPV 13.1 fL (9.4-12.4) H 01/21/19 04:09 Neutrophils # 12.1 K/mcL (1.6-8.9) H 01/21/19 04:09 Lymphocytes # 0.5 K/mcL (0.6-4.6) L 01/20/19 05:37 Monocytes # 1.4 K/mcL (0.0-1.3) H 01/21/19 04:09 Nucleated RBCs/100 WBC 0.1 /100 WBC (0) H 01/21/19 04:09 Platelet Estimate Decreased (Normal) L 01/15/19 01:41 Clumped Platelets Few (Not Present) A 01/13/19 23:51 Immature Plt Fraction 15.7 % (1.1-6.1) H 01/19/19 03:30 PT 12.4 Seconds (9.4-12.1) H 01/21/19 04:09 APTT 71.6 Seconds (26.0-36.0) H D 01/20/19 05:37 D-Dimer 1026 ng/mLFEU (0-500) H 01/13/19 20:29 Heparin Anti-Xa, Unfract 0.01 IU/mL (0.30-0.70) L 01/20/19 22:17 ABG pH 7.46 pH Units (7.32-7.45) H 01/21/19 04:29 ABG pCO2 50 mmHg (35-45) H 01/20/19 04:52 ABG pO2 69 mmHg (85-104) L 01/20/19 04:52 ABG HCO3 32 mEq/L (21-27) H 01/21/19 04:29 ABG Total CO2 33 mEq/L (20-26) H 01/21/19 04:29 ABG O2 Saturation 93 % (95-98) L 01/20/19 04:52 ABG Base Excess 7 mEq/L (-2 to 3) H 01/21/19 04:29 Sodium 146 mEq/L (136-145) H 01/19/19 03:30 Chloride 109 mEq/L (98-107) H 01/20/19 05:37 Carbon Dioxide 30 mEq/L (23-29) H 01/21/19 04:09 BUN 32 mg/dL (8-23) H 01/21/19 04:09 Creatinine 0.46 mg/dL (0.60-1.20) L 01/21/19 04:09 BUN/Creatinine Ratio 70 (6-26) H 01/21/19 04:09 Glucose 186 mg/dL (70-105) H 01/21/19 04:09 POC Glucose 110 mg/dL (70-99) H 01/21/19 17:56 Calculated Osmolality 304 (280-300) H 01/21/19 04:09 Lactic Acid 3.0 mmol/L (0.5-2.2) H 01/14/19 09:26 Calcium 8.1 mg/dL (8.6-10.3) L 01/21/19 04:09 Phosphorus 2.4 mg/dL (2.7-4.5) L 01/21/19 04:09 Troponin I 0.54 ng/mL (< 0.04) H* 01/15/19 01:41 B-Natriuretic Peptide 121 pg/mL (Less than 100) H 01/13/19 20:07 Serum Total Protein 5.4 g/dL (6.4-8.9) L 01/18/19 04:24 Albumin 3.4 g/dL (3.5-5.7) L 01/18/19 04:24 Globulin 2.0 g/dL (2.4-3.5) L 01/18/19 04:24 Lipase 7 Units/L (11-82) L 01/13/19 20:07 Procalcitonin 1.89 ng/mL (0.00-0.15) H 01/14/19 09:26 Urine Clarity Turbid (Clear) A 01/14/19 02:40 Urine Protein 30 mg/dL (Neg-Trace) H 01/14/19 02:40 Urine Ketones 80 mg/dL (Negative) H 01/14/19 02:40 Urine Blood Large (Negative) H 01/14/19 02:40 Urine Bilirubin Small (Negative) H 01/14/19 02:40 Ur Leukocyte Esterase Trace (Negative) H 01/14/19 02:40 Urine Microscopic RBC TNTC per hpf (0-3) H 01/14/19 02:40 Urine Microscopic WBC 15-30 per hpf (0-3) H 01/14/19 02:40 Ur Squamous Epith Cells Many per lpf (None-Few) H 01/14/19 02:40 Ur Culture Indicated? YES (NO) A 01/14/19 02:40 - Clinical Findings Intake & Output: Intake & Output 01/21/19 01/21/19 01/21/19 07:59 15:59 23:59 Intake Total 968.6 / 1723.0 606.3 / 1723.0 148.1 / 1723.0 Output Total 475 / 1335 260 / 1335 600 / 1335 Balance 493.6 / 388.0 346.3 / 388.0 -451.9 / 388.0 Weight 59.8 kg - Attending Attestation - Attending Attestation I saw and evaluated this patient and my medical decision-making was reviewed with the Resident Physician. I agree with the documented findings, disposition and treatment plan as described except to the extent set forth below. We independently had [id number] contact with the patient I spent 40 minutes of Critical Care time with this patient. It involved decision making of high complexity to assess, manipulate, and support vital organ system failure and/or to prevent further life threatening deterioration of the patient's condition. The time involved in the performance of separately reportable procedures was not counted toward critical care time. Patient seen and examined at bedside Labs, radiology, chart personally reviewed. Management was reviewed during multidisciplinary critical care rounds. 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 Pulm: Patient has acceptable oxygenation and ventilation patient has severe COPD with bullous emphysema with spontaneous pneumothorax patient has chest tube not much leak cardiothoracic surgery is following patient will need to surgical intervention at some point during this current illness. Cardiothoracic surgery wanted to cardiac clearance before surgery. 01/20 patient had cardiac catheterization showed minimal coronary artery disease most likely this all due to nonischemic cardiomyopathy. Patient has acceptable oxygenation and ventilation with low tidal volume strategy. Patient needed a higher pressure support to maintain a decent minute ventilation discuss with the respiratory therapist to do smart care pressure support ventilation. 01/21 Patient has significant bilateral bullous emphysematous disease complicated by spontaneous pneumothorax on the right side with chest tube no air leak. Patient passed the spontaneous breathing trial with pressure support ventilation will extubated to BiPAP 04/01 Cards: Patient had EF of 20-25% with wall motion abnormalities patient had a cardiac catheterization which showed mild coronary artery disease most likely nonischemic cardiomyopathy to continue the current cardiac regimen. Cardiology patient will be moderate to high risk candidate for surgery. To keep her electr olytes especially potassium and magnesium normal range patient has high risk for arrhythmias. 01/20 patient has nonischemic cardiomyopathy patient will be a moderate to high risk candidate for surgery. To keep the electrolytes are within normal limits 01/21 she has nonischemic cardiomyopathy moderate high risk for surgery FEN-GI: Advance diet as tolerated as she comes off BiPAP Renal: Labs and output were reviewed ID: No active infectious disease going Heme/Onc: Labs reviewed Endo: Glucose Monitored Integ/MSK: Skin Care per routine ICU Nursing Protocol to prevent ulcers. Lines: All lines examined without evidence of infection : Dispo: Critically ill high risk for reintubation.
[2019-01-21] MEDS: Pantoprazole 40 MG VIAL IVP SCH (07:22)
[2019-01-21] MEDS: Chlorhexidine Rinse 15 ML MOUTHWASH MM SCH ×2 (07:22→20:06)
[2019-01-21] MEDS: Aspirin 81 MG TAB.CHEW GTUBE SCH (07:23)
--- NOTE | 2019-01-21 08:43 | Cardiothoracic Progress Note ---
Date of Encounter: 01/21/19 Time of Encounter: 08:41 - Assessment and plan (1) Giant bullous emphysema Current Visit: Yes Status: Acute The assessment and plan as outlined above was discussed with the patient and/or family members who expressed understanding and agreement. All questions were answered. in my conversation yesterday with the patient and , patient said no to tracheostomy if she would require one. i would like to push her to extubation and if she cannot wean from the ventilator, no surgery. (2) Acute respiratory failure with hypoxia Current Visit: Yes Status: Acute The assessment and plan as outlined above was discussed with the patient and/or family members who expressed understanding and agreement. All questions were answered. (3) NSTEMI (non-ST elevated myocardial infarction) Current Visit: Yes Status: Acute The assessment and plan as outlined above was discussed with the patient and/or family members who expressed understanding and agreement. All questions were answered. cardiac progress note reviewed. Vital Signs, Last 4 Hours Temp Pulse Resp BP Pulse Ox 01/21/19 08:00 83 13 175/92 100 01/21/19 07:53 83 13 175/92 100 01/21/19 07:45 99.1 F 01/21/19 07:37 80 01/21/19 07:20 17 171/89 99 01/21/19 07:00 91 14 171/89 99 01/21/19 06:00 82 10 154/80 96 01/21/19 05:05 20 99 01/21/19 05:00 89 11 167/90 96 Oxgyen Flow Rate Oxygen Flow Rate (LPM) 15 Clinical Data, last 8 Hours Output, Chest Tube Drainage 0 Amount [Right Mid-Clavicular Chest] Output, Chest Tube Drainage 0 Amount [Right Mid-Clavicular Chest] Weight 01/19/19 01/20/19 01/21/19 23:59 23:59 23:59 Weight 58 kg 58.8 kg 59.8 kg - Physical Examination General: Other (intubated. appropriately responds to questions ) HEENT: Atraumatic, Normocephaly, Trachea midline Cardiac: Reg Rate and Rhythm, Normal S1 and S2 Chest tubes: Minimal drainage, Crepitus, Other (crepitus is decreasing) Lungs: Decreased breath sounds Neuro: Alert and responsive, No focal deficits noted, Cranial nerves intact, Motor nerves intact Abdomen: Soft, Non-tender Skin: Other (ecchymosis and petechia on arms. ) - Labs 01/21/19 04:09 01/21/19 04:09 Lab Results, Last 24 hours 01/21/19 01/21/19 01/21/19 04:09 04:09 04:09 WBC 14.6 H Hgb 9.3 L Hct 29.5 L Plt Count 138 L INR 1.1 Sodium 141 Potassium 4.2 Chloride 107 Carbon Dioxide 30 H BUN 32 H Creatinine 0.46 L Glucose 186 H Calcium 8.1 L Magnesium 2.4 - VTE Reasons for not Prescribing Prophylaxis: Not indicated-Anticoagulated or INR therapeutic Consult Discharge Plan - Plan Referrals: Lissette Chen CNP [Primary Care Provider] -
--- NOTE | 2019-01-21 14:18 | Internal Med Progress Note ---
Hospitalist Progress Note - Encounter Date of Encounter: 01/21/19 Time of Encounter: 14:14 - Subjective Interval History: 60-year-old female with a history of COPD, admitted for acute COPD exacerbation, ultimately requiring intubation. She was noted of a right-sided pneumothorax for which a chest tube was placed. She is currently being followed by [facility] surgery. Patient has severe bolus emphysema, and is currently under discussions with cardiothoracic surgery for consideration of lung reduction surgery. During this admission she also had an elevated troponin and ultimately underwent cardiac catheterization which showed nonobstructive disease. She does have a nonischemic cardiac myopathy with a EF of 20-25%, felt to be consistent with stress-induced cardiomyopathy. She remains on beta shani and ERIKA inhibitor. She is still on ventilatory support and we are attempting a CPAP trial presently to hopefully extubate this patient. Patient is currently being treated for pneumonia for which she is on day #8 of Zosyn. Overall she is showing significant clinical improvement but has very severe lung disease with poor reserve. Review of systems: A 10 point review of systems is limited due to the fact that patient is intubated. She she shakes her head no when asked if she is uncomfortable. - Exam Vitals: Temp Pulse Resp BP Pulse Ox 99.4 F 82 16 177/128 100 01/21/19 12:00 01/21/19 13:00 01/21/19 13:00 01/21/19 13:00 01/21/19 13:00 Exam: General: intubated and sedated, able to follow simple commands and nod yes/no to simple questions. Awake, alert. Neck supple OP moist HEENT: no icterus, neck supple Chest: Dimin bs bilat bases, coarse rhonchi ant cummins Ht: RRR Abdomen: soft NT, ND, + BS, no HSMG Ext: No CCE, equal pulses, no calf swelling Neuro: sedated, + purposeful movements Skin: warm and dry Imp/Plan: Acute Hypoxic Respiratory Failure: Severe COPD, PNA Currently intubated and sedated; Steroids, aerosols, antibiotics (Day # 8 Zosyn, Day #6 Doxycycline (stopped on 01/20), Cefepime discontinued on 01/[address] -- pulmonary/CTS to follow. PNA -Abx as outlined above -Blood cx neg Spontaneous pneumothorax: 1. Chest tube placed at [facility]; current management per CTS NSTEMI: Cardiology following ECHO showed EF of 20-25% with wall motion abnormalities, concern for Takotsubo cardiomyopathy left heart catheterization showed nonobx CAD, hep gtt stopped Acute on chronic systolic CHF -ERIKA Inhibitor -BB -monitor -?future AICD if no recovery UTI: Culture neg Continue antibiotics as outlined above for PNA which wuld cover most urinary pathogens as well DVT prohylaxis: -SubQ Heparin Hypernatremia -free wtaer replacment ordered, monitor -improved DVT Prophylaxis -SubQ heparin - Time Spent with Patient Total time spent is greater than 50% in coordination of care (as documented) at patient's floor/unit and/or counseling patient: Greater than 35 minutes Internal Medicine: Result - Labs CBC & Chem 7: 01/21/19 04:09 01/21/19 04:09 Labs: Short CBC 01/21/19 Range/Units 04:09 WBC 14.6 H (4.3-11.1) K/mcL Hgb 9.3 L (11.5-15.4) g/dL Hct 29.5 L (35.3-44.9) % Plt Count 138 L (140-400) K/mcL Neutrophils # 12.1 H (1.6-8.9) K/mcL BMP 01/21/19 04:09 Sodium 141 Potassium 4.2 Chloride 107 Carbon Dioxide 30 H BUN 32 H Creatinine 0.46 L Glucose 186 H Calcium 8.1 L - ABG Interpretation ABG results: ABG ABG pH 7.46 pH Units (7.32-7.45) H 01/21/19 04:29 ABG pCO2 45 mmHg (35-45) 01/21/19 04:29 ABG pO2 102 mmHg (85-104) 01/21/19 04:29 ABG O2 Saturation 98 % (95-98) 01/21/19 04:29 PT/INR, D-dimer PT 12.4 Seconds (9.4-12.1) H 01/21/19 04:09 D-Dimer 1026 ng/mLFEU (0-500) H 01/13/19 20:29 - Impressions Impressions Chest X-Ray 01/20/19 11:11 IMPRESSION: Stable chest including support hardware. Hyperlucent left upper lung compatible with large emphysematous bulla. No pneumothorax appreciated. D/ / 01/20/2019 12:09:16 Kenneth Koch MD / atif Interpreting Provider: Kenneth Koch MD - VTE Reasons for not Prescribing Prophylaxis: Not indicated-Anticoagulated or INR therapeutic Consult Discharge Plan - Plan Referrals: Lissette Chen, GRAPHICS MANAGER [Primary Care Provider] -
[2019-01-22] MEDS: Ipratropium/Albuterol Neb 3 ML IH SCH ×7 (00:20→23:23)
[2019-01-22] MEDS: Piperacillin/Tazobactam 3.375 GM in 0.9 % Sodium Chloride Mini Bag 100 ML IVPB SCH ×2 (00:51→09:22)
[2019-01-22] MEDS: Dexmedetomidine HCl 400 MCG/100 ML MLS IVC SCH ×2 (02:58→13:07)
[2019-01-22] MEDS: Artificial Tears SOLN 15 ML BOTTLE BOTH EYES SCH ×2 (04:57→08:50)
[2019-01-22] MEDS: MethylPREDNISolone 40 MG/ML VIAL IVP SCH ×2 (05:19→17:15)
[2019-01-22] MEDS: *HR* Heparin 5,000 UNIT/ML VIAL SQ SCH ×2 (05:19→17:14)
[2019-01-22 05:25] LABS: Basophils % 0.1 %; Hematocrit 30.5 % (35.3-44.9); Hemoglobin 9.8 g/dL (11.5-15.4); Immature Granulocytes % 3.1 % (0-4); Mean Corpuscular HGB Conc 32.1 g/dL (31.6-35.5); Mean Corpuscular Hemoglobin 30.9 pg (28.0-33.3); Mean Corpuscular Volume 96.2 fL (83.0-100.0); Mean Platelet Volume 12.7 fL (9.4-12.4); Monocytes # 1.3 K/mcL (0.0-1.3); Monocytes % 9.4 %; Neutrophils # 11.5 K/mcL (1.6-8.9); Nucleated Red Blood Cells 0.1 /100 WBC (0); Platelet Count 131 K/mcL (140-400); Red Blood Count 3.17 M/mcL (3.82-4.97); Red Cell Distribution Width 14.2 % (11.5-14.5); Segmented Neutrophils % 80.4 %; White Blood Count 14.3 K/mcL (4.3-11.1)
[2019-01-22 05:41] LABS: BUN/Creatinine Ratio 55 (6-26); Blood Urea Nitrogen 23 mg/dL (8-23); Calcium 8.2 mg/dL (8.6-10.3); Carbon Dioxide 29 mEq/L (23-29); Chloride 106 mEq/L (98-107); Glucose 130 mg/dL (70-105); Magnesium 2.2 mg/dL (1.6-2.6); Osmolality,Calculated 295 (280-300); Phosphorous 3.2 mg/dL (2.7-4.5); Potassium 4.5 mEq/L (3.5-5.1); Sodium 140 mEq/L (136-145); eGFR For African Americans > 60 (> 60); eGFR For Non-African Americans > 60 (> 60)
--- NOTE | 2019-01-22 07:17 | Cardiothoracic Progress Note ---
Date of Encounter: 01/22/19 Time of Encounter: 07:15 - Assessment and plan (1) Giant bullous emphysema Current Visit: Yes Status: Acute We will continue chest tube suction until the patient is off BiPAP. The patient is not a surgical candidate based on her low pulmonary function according to . - Subjective Interval history: The patient is extubated and is on BiPAP. Vital Signs, Last 4 Hours Temp Pulse Resp BP Pulse Ox 01/22/19 06:00 72 11 135/75 100 01/22/19 05:00 75 12 123/75 100 01/22/19 04:00 98.6 F 77 12 124/75 100 01/22/19 03:42 15 129/73 100 Oxgyen Flow Rate Oxygen Flow Rate (LPM) 15 Clinical Data, last 8 Hours Output, Chest Tube Drainage 0 Amount [Right Mid-Clavicular Chest] Output, Chest Tube Drainage 0 Amount [Right Mid-Clavicular Chest] Output, Chest Tube Drainage 0 Amount [Right Mid-Clavicular Chest] Weight 01/20/19 01/21/19 01/22/19 23:59 23:59 23:59 Weight 58.8 kg 59.8 kg 60.75 kg Lungs are clear to percussion and auscultation. Her chest tube drainage is minimal and there is no air leak. Chest x-ray reveals no pneumothorax. - Labs 01/22/19 04:53 01/22/19 04:53 Lab Results, Last 24 hours 01/22/19 01/22/19 04:53 04:53 WBC 14.3 H Hgb 9.8 L Hct 30.5 L Plt Count 131 L Sodium 140 Potassium 4.5 Chloride 106 Carbon Dioxide 29 BUN 23 Creatinine 0.42 L Glucose 130 H Calcium 8.2 L Magnesium 2.2 - VTE Reasons for not Prescribing Prophylaxis: Not indicated-Anticoagulated or INR therapeutic Consult Discharge Plan - Plan Referrals: Lissette Chen CNP [Primary Care Provider] -
--- NOTE | 2019-01-22 07:23 | Pulmonology Progress Note ---
<Seema Barrera - Last Filed: 01/22/19 11:21> Date of Encounter: 01/22/19 Time of Encounter: 07:23 Assessment and Plan (1) Acute respiratory failure with hypoxia Current Visit: Yes Status: Acute Acute respiratory failure with hypoxia secondary to pneumothorax, bolus emphysema, severe COPD -afebrile, hemodynamically stable -WBC 14.3 -intubated on 01/13. Extubated on 01/21 -Chest CT: Persistent right apical Pneumothorax. subcutaneous emphysema improving. Biapical bulla -chest tube and placed on right side with minimal output. plan: -cardiothoracic surgery following and reports that patient is not a candidate for surgery due to her low pulmonary function -stop Zosyn day 9 -continue supplemental oxygen -continue Solu-Medrol -Ordered Precedex prn (2) Acute encephalopathy Current Visit: Yes Status: Acute Resolved. Likely secondary to acute respiratory failure. (3) NSTEMI (non-ST elevated myocardial infarction) Current Visit: Yes Status: Acute NSTEMI -troponin 1.03, 0.54 -EKG showed inverted T wave -TTE: LVEF 20-25% with wall motion abnormalities Takotsubo/stress induced cardiomyopathy -LHC: minimal CAD, likely NICMP -denies chest pain plan: -continue aspirin, stat and, beta shani, sammy inhibitor -heparin drip stopped (4) Giant bullous emphysema Current Visit: Yes Status: Acute Patient has giant bullous emphysema shown on chest CT - Chest CT: Persistent right apical Pneumothorax. subcutaneous emphysema improving. Biapical bulla -CT surgery following (5) COPD exacerbation Current Visit: Yes Status: Acute Patient with COPD exacerbation. - Chest CT: Persistent right apical Pneumothorax. subcutaneous emphysema improving. Biapical bulla -Continue Solu-Medrol 40 mg Q12g -Continue duonebs -interview supplemental oxygen (6) Secondary spontaneous pneumothorax Current Visit: Yes Status: Acute Secondary pneumothorax. This is likely secondary to bolus emphysema. -Chest tube in place. Minimal output. Cardiothoracic surgery following and managing. (7) Anemia Current Visit: Yes Status: Acute Normocytic Anemia -etiology is unclear. -hemoglobin 9.8, stable and improving -no obvious active bleeding -will continue monitor hemoglobin and for bleeding Qualifiers: Anemia type: unspecified type Qualified Code(s): D64.9 - Anemia, unspecified (8) DVT prophylaxis Current Visit: Yes Status: Acute Heparin SQ Subjective Principal diagnosis: Respiratory Failure Interval history: Patient was seen and examined at bedside today resting comfortably sitting up on BiPAP. She stated that the BiPAP mask was uncomfortable. She feels that her dyspnea is unchanged. She denied fever, chills, chest pain, cough, abdominal pain. She is passing gas. According to cardiothoracic surgery she is not a surgical candidate due to her low pulmonary function. Objective PUL Vital signs: Last Vital Signs Temp 98.6 F 01/22/19 04:00 Pulse 72 01/22/19 06:00 Resp 11 01/22/19 06:00 BP 135/75 01/22/19 06:00 Pulse Ox 100 01/22/19 06:00 General appearance: no acute distress, alert Eyes: nonicteric ENT: oropharynx moist Neck: supple Effort: mildly labored Auscultation: bilateral: diminished breath sounds Cardiovascular: regular rate and rhythm Gastrointestinal: normoactive bowel sounds, soft, non-tender, non-distended Integumentary: normal Extremities: no cyanosis, no edema Musculoskeletal: no deformities normal mental status, non-focal exam mood appropriate, affect normal Results - Laboratory Findings CBC and BMP: 01/22/19 04:53 01/22/19 04:53 ABG ABG pH 7.46 pH Units (7.32-7.45) H 01/21/19 04:29 ABG pCO2 45 mmHg (35-45) 01/21/19 04:29 ABG pO2 102 mmHg (85-104) 01/21/19 04:29 ABG O2 Saturation 98 % (95-98) 01/21/19 04:29 PT/INR, D-dimer PT 12.4 Seconds (9.4-12.1) H 01/21/19 04:09 D-Dimer 1026 ng/mLFEU (0-500) H 01/13/19 20:29 Abnormal lab findings: Abnormal lab results WBC 14.3 K/mcL (4.3-11.1) H 01/22/19 04:53 RBC 3.17 M/mcL (3.82-4.97) L 01/22/19 04:53 Hgb 9.8 g/dL (11.5-15.4) L 01/22/19 04:53 Hct 30.5 % (35.3-44.9) L 01/22/19 04:53 MCV 100.5 fL (83.0-100.0) H 01/14/19 09:26 MCHC 31.5 g/dL (31.6-35.5) L 01/21/19 04:09 Plt Count 131 K/mcL (140-400) L 01/22/19 04:53 MPV 12.7 fL (9.4-12.4) H 01/22/19 04:53 Neutrophils # 11.5 K/mcL (1.6-8.9) H 01/22/19 04:53 Lymphocytes # 0.5 K/mcL (0.6-4.6) L 01/20/19 05:37 Monocytes # 1.4 K/mcL (0.0-1.3) H 01/21/19 04:09 Nucleated RBCs/100 WBC 0.1 /100 WBC (0) H 01/22/19 04:53 Platelet Estimate Decreased (Normal) L 01/15/19 01:41 Clumped Platelets Few (Not Present) A 01/13/19 23:51 Immature Plt Fraction 15.7 % (1.1-6.1) H 01/19/19 03:30 PT 12.4 Seconds (9.4-12.1) H 01/21/19 04:09 APTT 71.6 Seconds (26.0-36.0) H D 01/20/19 05:37 D-Dimer 1026 ng/mLFEU (0-500) H 01/13/19 20:29 Heparin Anti-Xa, Unfract 0.01 IU/mL (0.30-0.70) L 01/20/19 22:17 ABG pH 7.46 pH Units (7.32-7.45) H 01/21/19 04:29 ABG pCO2 50 mmHg (35-45) H 01/20/19 04:52 ABG pO2 69 mmHg (85-104) L 01/20/19 04:52 ABG HCO3 32 mEq/L (21-27) H 01/21/19 04:29 ABG Total CO2 33 mEq/L (20-26) H 01/21/19 04:29 ABG O2 Saturation 93 % (95-98) L 01/20/19 04:52 ABG Base Excess 7 mEq/L (-2 to 3) H 01/21/19 04:29 Sodium 146 mEq/L (136-145) H 01/19/19 03:30 Chloride 109 mEq/L (98-107) H 01/20/19 05:37 Carbon Dioxide 30 mEq/L (23-29) H 01/21/19 04:09 BUN 32 mg/dL (8-23) H 01/21/19 04:09 Creatinine 0.42 mg/dL (0.60-1.20) L 01/22/19 04:53 BUN/Creatinine Ratio 55 (6-26) H 01/22/19 04:53 Glucose 130 mg/dL (70-105) H 01/22/19 04:53 POC Glucose 119 mg/dL (70-99) H 01/22/19 05:46 Calculated Osmolality 304 (280-300) H 01/21/19 04:09 Lactic Acid 3.0 mmol/L (0.5-2.2) H 01/14/19 09:26 Calcium 8.2 mg/dL (8.6-10.3) L 01/22/19 04:53 Phosphorus 2.4 mg/dL (2.7-4.5) L 01/21/19 04:09 Troponin I 0.54 ng/mL (< 0.04) H* 01/15/19 01:41 B-Natriuretic Peptide 121 pg/mL (Less than 100) H 01/13/19 20:07 Serum Total Protein 5.4 g/dL (6.4-8.9) L 01/18/19 04:24 Albumin 3.4 g/dL (3.5-5.7) L 01/18/19 04:24 Globulin 2.0 g/dL (2.4-3.5) L 01/18/19 04:24 Lipase 7 Units/L (11-82) L 01/13/19 20:07 Procalcitonin 1.89 ng/mL (0.00-0.15) H 01/14/19 09:26 Urine Clarity Turbid (Clear) A 01/14/19 02:40 Urine Protein 30 mg/dL (Neg-Trace) H 01/14/19 02:40 Urine Ketones 80 mg/dL (Negative) H 01/14/19 02:40 Urine Blood Large (Negative) H 01/14/19 02:40 Urine Bilirubin Small (Negative) H 01/14/19 02:40 Ur Leukocyte Esterase Trace (Negative) H 01/14/19 02:40 Urine Microscopic RBC TNTC per hpf (0-3) H 01/14/19 02:40 Urine Microscopic WBC 15-30 per hpf (0-3) H 01/14/19 02:40 Ur Squamous Epith Cells Many per lpf (None-Few) H 01/14/19 02:40 Ur Culture Indicated? YES (NO) A 01/14/19 02:40 - Clinical Findings Intake & Output: Intake & Output 01/21/19 01/21/19 01/22/19 15:59 23:59 07:59 Intake Total 606.3 / 1723.0 148.1 / 1723.0 126.0 / 126.0 Output Total 260 / 1845 600 / 1845 660 / 660 Balance 346.3 / -122.0 -451.9 / -122.0 -534.0 / -534.0 Weight 60.75 kg - VTE Reasons for not Prescribing Prophylaxis: Not indicated-Anticoagulated or INR therapeutic Consult Discharge Plan - Plan Referrals: Lissette Chen, CARDIAC CARE UNIT NURSE [Primary Care Provider] - <Eloisa Campos - Last Filed: 01/22/19 19:52> Date of Encounter: 01/22/19 Objective PUL Vital signs: Last Vital Signs Temp 98.1 F 01/22/19 16:40 Pulse 80 01/22/19 18:00 Resp 18 01/22/19 18:00 BP 124/76 01/22/19 18:00 Pulse Ox 98 01/22/19 18:00 Results - Laboratory Findings CBC and BMP: 01/22/19 04:53 01/22/19 04:53 ABG ABG pH 7.46 pH Units (7.32-7.45) H 01/21/19 04:29 ABG pCO2 45 mmHg (35-45) 01/21/19 04:29 ABG pO2 102 mmHg (85-104) 01/21/19 04:29 ABG O2 Saturation 98 % (95-98) 01/21/19 04:29 PT/INR, D-dimer PT 12.4 Seconds (9.4-12.1) H 01/21/19 04:09 D-Dimer 1026 ng/mLFEU (0-500) H 01/13/19 20:29 Abnormal lab findings: Abnormal lab results WBC 14.3 K/mcL (4.3-11.1) H 01/22/19 04:53 RBC 3.17 M/mcL (3.82-4.97) L 01/22/19 04:53 Hgb 9.8 g/dL (11.5-15.4) L 01/22/19 04:53 Hct 30.5 % (35.3-44.9) L 01/22/19 04:53 MCV 100.5 fL (83.0-100.0) H 01/14/19 09:26 MCHC 31.5 g/dL (31.6-35.5) L 01/21/19 04:09 Plt Count 131 K/mcL (140-400) L 01/22/19 04:53 MPV 12.7 fL (9.4-12.4) H 01/22/19 04:53 Neutrophils # 11.5 K/mcL (1.6-8.9) H 01/22/19 04:53 Lymphocytes # 0.5 K/mcL (0.6-4.6) L 01/20/19 05:37 Monocytes # 1.4 K/mcL (0.0-1.3) H 01/21/19 04:09 Nucleated RBCs/100 WBC 0.1 /100 WBC (0) H 01/22/19 04:53 Platelet Estimate Decreased (Normal) L 01/15/19 01:41 Clumped Platelets Few (Not Present) A 01/13/19 23:51 Immature Plt Fraction 15.7 % (1.1-6.1) H 01/19/19 03:30 PT 12.4 Seconds (9.4-12.1) H 01/21/19 04:09 APTT 71.6 Seconds (26.0-36.0) H D 01/20/19 05:37 D-Dimer 1026 ng/mLFEU (0-500) H 01/13/19 20:29 Heparin Anti-Xa, Unfract 0.01 IU/mL (0.30-0.70) L 01/20/19 22:17 ABG pH 7.46 pH Units (7.32-7.45) H 01/21/19 04:29 ABG pCO2 50 mmHg (35-45) H 01/20/19 04:52 ABG pO2 69 mmHg (85-104) L 01/20/19 04:52 ABG HCO3 32 mEq/L (21-27) H 01/21/19 04:29 ABG Total CO2 33 mEq/L (20-26) H 01/21/19 04:29 ABG O2 Saturation 93 % (95-98) L 01/20/19 04:52 ABG Base Excess 7 mEq/L (-2 to 3) H 01/21/19 04:29 Sodium 146 mEq/L (136-145) H 01/19/19 03:30 Chloride 109 mEq/L (98-107) H 01/20/19 05:37 Carbon Dioxide 30 mEq/L (23-29) H 01/21/19 04:09 BUN 32 mg/dL (8-23) H 01/21/19 04:09 Creatinine 0.42 mg/dL (0.60-1.20) L 01/22/19 04:53 BUN/Creatinine Ratio 55 (6-26) H 01/22/19 04:53 Glucose 130 mg/dL (70-105) H 01/22/19 04:53 POC Glucose 110 mg/dL (70-99) H 01/22/19 11:41 Calculated Osmolality 304 (280-300) H 01/21/19 04:09 Lactic Acid 3.0 mmol/L (0.5-2.2) H 01/14/19 09:26 Calcium 8.2 mg/dL (8.6-10.3) L 01/22/19 04:53 Phosphorus 2.4 mg/dL (2.7-4.5) L 01/21/19 04:09 Troponin I 0.54 ng/mL (< 0.04) H* 01/15/19 01:41 B-Natriuretic Peptide 121 pg/mL (Less than 100) H 01/13/19 20:07 Serum Total Protein 5.4 g/dL (6.4-8.9) L 01/18/19 04:24 Albumin 3.4 g/dL (3.5-5.7) L 01/18/19 04:24 Globulin 2.0 g/dL (2.4-3.5) L 01/18/19 04:24 Lipase 7 Units/L (11-82) L 01/13/19 20:07 Procalcitonin 1.89 ng/mL (0.00-0.15) H 01/14/19 09:26 Urine Clarity Turbid (Clear) A 01/14/19 02:40 Urine Protein 30 mg/dL (Neg-Trace) H 01/14/19 02:40 Urine Ketones 80 mg/dL (Negative) H 01/14/19 02:40 Urine Blood Large (Negative) H 01/14/19 02:40 Urine Bilirubin Small (Negative) H 01/14/19 02:40 Ur Leukocyte Esterase Trace (Negative) H 01/14/19 02:40 Urine Microscopic RBC TNTC per hpf (0-3) H 01/14/19 02:40 Urine Microscopic WBC 15-30 per hpf (0-3) H 01/14/19 02:40 Ur Squamous Epith Cells Many per lpf (None-Few) H 01/14/19 02:40 Ur Culture Indicated? YES (NO) A 01/14/19 02:40 - Clinical Findings Intake & Output: Intake & Output 01/22/19 01/22/19 01/22/19 07:59 15:59 23:59 Intake Total 226.0 / 420.0 134 / 420.0 60 / 420.0 Output Total 660 / 1810 600 / 1810 550 / 1810 Balance -434.0 / -1390.0 -466 / -1390.0 -490 / -1390.0 Weight 60.75 kg - Attending Attestation - Attending Attestation I saw and evaluated this patient and my medical decision-making was reviewed with the Resident Physician. I agree with the documented findings, disposition and treatment plan as described except to the extent set forth below. We alex rodriguez had [id number] contact with the patient Patient seen and examined at bedside Labs, radiology, chart personally reviewed. Management was reviewed during multidisciplinary critical care rounds. DESIGN PRINTING MACHINE SETTER: Patient is conscious and she is awake and alert and she understands her disease process patient does not show any evidence of encephalopathy no evidence of focal neurological deficit 01/21 patient is awake following commands patient did well on the pressure support ventilation will extubated to BiPAP. 01/22 patient is breathing well with the nasal cannula no evidence of toxic/metabolic encephalopathy no evidence of focal neurological deficit Pulm: Patient has acceptable oxygenation and ventilation patient has severe COPD with bullous emphysema with spontaneous pneumothorax patient has chest tube not much leak cardiothoracic surgery is following patient will need to surgical intervention at some point during this current illness. Cardiothoracic surgery wanted to cardiac clearance before surgery. 01/20 patient had cardiac catheterization showed minimal coronary artery disease most likely this all due to nonischemic cardiomyopathy. Patient has acceptable oxygenation and ventilation with low tidal volume strategy. Patient needed a higher pressure support to maintain a decent minute ventilation discuss with the respiratory therapist to do smart care pressure support ventilation. 01/21 Patient has significant bilateral bullous emphysematous disease complicated by spontaneous pneumothorax on the right side with chest tube no air leak. Patient passed the spontaneous breathing trial with pressure support ventilation will extubated to BiPAP 04/01 01/22 patient has significant bilateral bullous disease patient with spontaneous pneumothorax as acceptable oxygenation and ventilation. She did well overnight with BiPAP to give intermittent breaks to use BiPAP during the night. According to cardiothoracic surgery patient will be a poor surgical candidate because of severe obstructive ventilatory impairment Cards: Patient had EF of 20-25% with wall motion abnormalities patient had a cardiac catheterization which showed mild coronary artery disease most likely nonischemic cardiomyopathy to continue the current cardiac regimen. Cardiology patient will be moderate to high risk candidate for surgery. To keep her electrolytes especially potassium and magnesium normal range patient has high risk for arrhythmias. 01/20 patient has nonischemic cardiomyopathy patient will be a moderate to high risk candidate for surgery. To keep the electrolytes are within normal limits 01/21 she has nonischemic cardiomyopathy moderate high risk for surgery 01/22 patient has nonischemic cardiomyopathy to control preload and afterload t he. FEN-GI: Advance diet as tolerated as she comes off BiPAP Renal: Labs and output were reviewed ID: No active infectious disease going Heme/Onc: Labs reviewed Endo: Glucose Monitored Integ/MSK: Skin Care per routine ICU Nursing Protocol to prevent ulcers. Lines: All lines examined without evidence of infection : Dispo: Critically ill high risk for reintubation.
[2019-01-22] MEDS: Pantoprazole 40 MG VIAL IVP SCH (08:49)
[2019-01-22] MEDS: Chlorhexidine Rinse 15 ML MOUTHWASH MM SCH (08:49)
[2019-01-22] MEDS ORDERED: *HR* HYDROcodone/Acet 5/325 mg TABLET PO PRN (09:21)
[2019-01-22] MEDS ORDERED: Acetaminophen 325 MG TABLET PO PRN (09:21)
[2019-01-22] MEDS ORDERED: *HR* OxyCODONE/APAP 5/325 TABLET PO PRN (10:40)
[2019-01-22] MEDS: Aspirin 81 MG TAB.CHEW GTUBE SCH (11:34)
[2019-01-22] MEDS: Sennosides/Docusate Sodium TABLET PO SCH (11:35)
--- NOTE | 2019-01-22 12:25 | Internal Med Progress Note ---
Hospitalist Progress Note - Encounter Date of Encounter: 01/22/19 Time of Encounter: 12:22 - Subjective Interval History: 60-year-old female with a history of COPD, admitted for acute COPD exacerbation, ultimately requiring intubation. She was noted of a right-sided pneumothorax for which a chest tube was placed. She is currently being followed by [facility] surgery. Patient has severe bolus emphysema, and is currently under discussions with cardiothoracic surgery for consideration of lung reduction surgery. During this admission she also had an elevated troponin and ultimately underwent cardiac catheterization which showed nonobstructive disease. She does have a nonischemic cardiac myopathy with a EF of 20-25%, felt to be consistent with stress-induced cardiomyopathy. She remains on beta shani and ERIKA inhibitor. She is still on ventilatory support and we are attempting a CPAP trial presently to hopefully extubate this patient. Patient is currently being treated for pneumonia for which she is on day #8 of Zosyn. Overall she is showing significant clinical improvement but has very severe lung disease with poor reserve. 01/22: Patient is doing reasonably well. She was extubated yesterday. She still complains of some mild discomfort over her right anterior chest which she has had for the last several days, with subcutaneous emphysema. She also has some mild nausea this morning. Breathing is improved. No fevers or chills. Patient is now completed 9 days of Zosyn, we are stopping this and we will observe from here. She was seen by cardiothoracic surgery who felt that due to her low pulmonary function she is not a candidate for further surgical intervention for her bullous emphysema. Patient continues on Solu-Medrol which can be tapered. She otherwise is stable for transfer to general medical bed. Other than that mentioned above a 10 point review of systems is negative - Exam Vitals: Temp Pulse Resp BP Pulse Ox 98.8 F 87 18 137/78 100 01/22/19 12:14 01/22/19 11:00 01/22/19 11:00 01/22/19 11:00 01/22/19 11:00 Exam: General: Awake, alert, no acute distress, cachectic Neck supple OP moist HEENT: no icterus, neck supple Chest: Dimin bs bilat bases, coarse rhonchi ant cummins. Mild tenderness right anterior chest wall. Ht: RRR Abdomen: soft NT, ND, + BS, no HSMG Ext: No CCE, equal pulses, no calf swelling Neuro: sedated, + purposeful movements Skin: warm and dry Imp/Plan: Acute Hypoxic Respiratory Failure: Severe COPD, PNA Currently intubated and sedated; Steroids, aerosols, antibiotics (Day # 8 Zosyn, Day #6 Doxycycline (stopped on 01/20), Cefepime discontinued on 01/[address] -- pulmonary/CTS to follow. 01/22: Antibiotics stopped today, she has completed 9 days of Zosyn. PNA -Abx as outlined above -Blood cx neg Spontaneous pneumothorax: 1. Chest tube placed at [facility]; current management per CTS -Unfortunately not a surgical candidate for lung reduction surgery NSTEMI: Cardiology following ECHO showed EF of 20-25% with wall motion abnormalities, concern for Takotsubo cardiomyopathy left heart catheterization showed nonobx CAD, hep gtt stopped Acute on chronic systolic CHF -ERIKA Inhibitor -BB -monitor -?future AICD if no recovery UTI: Culture neg Continue antibiotics as outlined above for PNA which wuld cover most urinary pathogens as well DVT prohylaxis: -SubQ Heparin Hypernatremia -resolved DVT Prophylaxis -SubQ heparin - Time Spent with Patient Total time spent is greater than 50% in coordination of care (as documented) at patient's floor/unit and/or counseling patient: Greater than 35 minutes Internal Medicine: Result - Labs CBC & Chem 7: 01/22/19 04:53 01/22/19 04:53 Labs: Short CBC 01/22/19 Range/Units 04:53 WBC 14.3 H (4.3-11.1) K/mcL Hgb 9.8 L (11.5-15.4) g/dL Hct 30.5 L (35.3-44.9) % Plt Count 131 L (140-400) K/mcL Neutrophils # 11.5 H (1.6-8.9) K/mcL BMP 01/22/19 04:53 Sodium 140 Potassium 4.5 Chloride 106 Carbon Dioxide 29 BUN 23 Creatinine 0.42 L Glucose 130 H Calcium 8.2 L - ABG Interpretation ABG results: ABG ABG pH 7.46 pH Units (7.32-7.45) H 01/21/19 04:29 ABG pCO2 45 mmHg (35-45) 01/21/19 04:29 ABG pO2 102 mmHg (85-104) 01/21/19 04:29 ABG O2 Saturation 98 % (95-98) 01/21/19 04:29 PT/INR, D-dimer PT 12.4 Seconds (9.4-12.1) H 01/21/19 04:09 D-Dimer 1026 ng/mLFEU (0-500) H 01/13/19 20:29 - VTE Reasons for not Prescribing Prophylaxis: Not indicated-Anticoagulated or INR therapeutic Consult Discharge Plan - Plan Referrals: Lissette Chen, ROTARY ENGINE ASSEMBLER [Primary Care Provider] -
[2019-01-22] MEDS: Ondansetron 4 MG/2 ML VIAL IVP PRN (23:38)
[2019-01-23 03:10] LABS: Basophils % 0.1 %; Eosinophils % 0.1 %; Hematocrit 27.2 % (35.3-44.9); Hemoglobin 8.8 g/dL (11.5-15.4); Immature Granulocytes % 2.6 % (0-4); Lymphocytes # 0.7 K/mcL (0.6-4.6); Lymphocytes % 5.4 %; Mean Corpuscular HGB Conc 32.4 g/dL (31.6-35.5); Mean Corpuscular Hemoglobin 30.8 pg (28.0-33.3); Mean Corpuscular Volume 95.1 fL (83.0-100.0); Mean Platelet Volume 13.1 fL (9.4-12.4); Monocytes # 1.1 K/mcL (0.0-1.3); Monocytes % 8.1 %; Neutrophils # 11.3 K/mcL (1.6-8.9); Nucleated Red Blood Cells 0.1 /100 WBC (0); Platelet Count 137 K/mcL (140-400); Red Blood Count 2.86 M/mcL (3.82-4.97); Red Cell Distribution Width 14.1 % (11.5-14.5); Segmented Neutrophils % 83.7 %; White Blood Count 13.5 K/mcL (4.3-11.1)
[2019-01-23 03:22] LABS: VBG Ionized Calcium 1.18 mmol/L (1.15-1.35)
[2019-01-23 03:28] LABS: BUN/Creatinine Ratio 50 (6-26); Blood Urea Nitrogen 20 mg/dL (8-23); Calcium 8.2 mg/dL (8.6-10.3); Carbon Dioxide 28 mEq/L (23-29); Chloride 106 mEq/L (98-107); Glucose 108 mg/dL (70-105); Magnesium 2.1 mg/dL (1.6-2.6); Osmolality,Calculated 287 (280-300); Phosphorous 3.3 mg/dL (2.7-4.5); Potassium 4.2 mEq/L (3.5-5.1); Sodium 137 mEq/L (136-145); eGFR For African Americans > 60 (> 60); eGFR For Non-African Americans > 60 (> 60)
[2019-01-23] MEDS: Ipratropium/Albuterol Neb 3 ML IH SCH ×6 (03:40→23:15)
[2019-01-23] MEDS: MethylPREDNISolone 40 MG/ML VIAL IVP SCH (05:13)
[2019-01-23] MEDS: *HR* Heparin 5,000 UNIT/ML VIAL SQ SCH ×2 (05:13→17:54)
[2019-01-23] MEDS: Dexmedetomidine HCl 400 MCG/100 ML MLS IVC SCH (05:16)
--- NOTE | 2019-01-23 07:24 | Pulmonology Progress Note ---
<Mynor Stein - Last Filed: 01/23/19 12:42> Date of Encounter: 01/23/19 Time of Encounter: 07:22 Assessment and Plan (1) Acute respiratory failure with hypoxia Current Visit: Yes Status: Acute Acute respiratory failure with hypoxia: - Secondary to Pneumothorax, bullous emphysema, - Extubated on 01/21/19 - Breathing comfortably on NC (2) Giant bullous emphysema Current Visit: Yes Status: Acute Giant bullous emphysema - Leading to Pneumothorax - R-sided chest tube with minimal output - CT surgery says she is not a surgical candidate due to pulmonary status (3) Anemia Current Visit: Yes Status: Acute Anemia - Acute drop in HGB 9.8>>8.8 - Normocytic - No obvious source of bleeding - No recent bowel movements - Heparin gtt discontinued - INR 1.1 - Will continue to monitor Qualifiers: Anemia type: unspecified type Qualified Code(s): D64.9 - Anemia, unspecified (4) NSTEMI (non-ST elevated myocardial infarction) Current Visit: Yes Status: Acute NSTEMI - Trop 1.03>>0.54 - EKG with inverted T waves - Cardiology following - Continue Heparin drip, ASA, statin, BB - Echo: LVEF 20-25% with wall motion abnormalities Takotsubo/stress induced cardiomyopathy - LHC: minimal CAD, likely NICMP - Cont ASA, statin, BB, ACEi - Heparin discontinued (5) COPD exacerbation Current Visit: Yes Status: Acute COPD - Duonebs q4 - Solumedrol 40 BID (6) Secondary spontaneous pneumothorax Current Visit: Yes Status: Acute Secondary Pneumothorax - Secondary to bullous emphysema - Chest tube in place. Minimal output - As above (7) Leukocytosis Current Visit: Yes Status: Acute Leukocytosis - No clear infectious process - Blood and urine cultures, final cultures no growth - Zosyn discontinued Qualifiers: Leukocytosis type: unspecified Qualified Code(s): D72.829 - Elevated white blood cell count, unspecified (8) DVT prophylaxis Current Visit: Yes Status: Acute Sub Q heparin Subjective Principal diagnosis: Respiratory Failure Interval history: Patient seen and examined. Afebrile. No overnight events. Resting comfortably in bed. Breathing comfortably on NC. Plan to transfer from the ICU today. Denies CARLISLE, SOB, chest pain. Chest tube output is minimal, will remain in until Friday. Priya riddle is a 68-year-old female with a history of COPD. She developed a ri ght-sided pneumothorax at home secondary to giant bolus emphysema. she required intubation on admission and chest tube placement. She also has giant bullae on the left side. Spelled failed extubation initially and eventually was successfully extubated on 01/22. During her stay in the ICU she was evaluated by cardiology for NSTEMI. Left heart catheterization showed no obstruction, nonischemic cardiomyopathy. Cardiothoracic surgery has been following her. At this point she is not a good surgical candidate due to pulmonary status. Objective PUL Vital signs: Last Vital Signs Temp 98.2 F 01/23/19 07:16 Pulse 84 01/23/19 06:00 Resp 16 01/23/19 06:00 BP 91/54 01/23/19 06:00 Pulse Ox 98 01/23/19 06:00 Gen: Vitals noted. No acute distress. Sitting comfortably in bed Eyes: anicteric sclerae, moist conjunctivae. Pupils 3mm, round, equal, and reactive to light HENT: Atraumatic, normocephalic; oropharynx clear with moist mucous membranes and no mucosal ulcerations Neck: Trachea midline; supple, no thyromegaly or lymphadenopathy Cardiac: RRR, no murmurs, rubs or gallops, S1/S2 Pulmonary: no wheezes, rales or rhonchi, equal chest expansion. Diminished breath sounds BL Abdomen: soft, nondistended, no rigidity or guarding. No masses or hepatosplenomegaly MSK: ROM intact, no joint swelling noted Extremities: no BLE edema, nontender calf, no cyanosis or clubbing Skin: Normal temperature, turgor and texture; no ulcers or subcutaneous nodules. Extensive bruising of bilateral upper extremities. Neuro: moves all extremities, no focal deficits. Psych: Appropriate mood and behavior Results - Laboratory Findings CBC and BMP: 01/23/19 03:00 01/23/19 03:00 ABG ABG pH 7.46 pH Units (7.32-7.45) H 01/21/19 04:29 ABG pCO2 45 mmHg (35-45) 01/21/19 04:29 ABG pO2 102 mmHg (85-104) 01/21/19 04:29 ABG O2 Saturation 98 % (95-98) 01/21/19 04:29 PT/INR, D-dimer PT 12.4 Seconds (9.4-12.1) H 01/21/19 04:09 D-Dimer 1026 ng/mLFEU (0-500) H 01/13/19 20:29 Abnormal lab findings: Abnormal lab results WBC 13.5 K/mcL (4.3-11.1) H 01/23/19 03:00 RBC 2.86 M/mcL (3.82-4.97) L 01/23/19 03:00 Hgb 8.8 g/dL (11.5-15.4) L 01/23/19 03:00 Hct 27.2 % (35.3-44.9) L 01/23/19 03:00 MCV 100.5 fL (83.0-100.0) H 01/14/19 09:26 MCHC 31.5 g/dL (31.6-35.5) L 01/21/19 04:09 Plt Count 137 K/mcL (140-400) L 01/23/19 03:00 MPV 13.1 fL (9.4-12.4) H 01/23/19 03:00 Neutrophils # 11.3 K/mcL (1.6-8.9) H 01/23/19 03:00 Lymphocytes # 0.5 K/mcL (0.6-4.6) L 01/20/19 05:37 Monocytes # 1.4 K/mcL (0.0-1.3) H 01/21/19 04:09 Nucleated RBCs/100 WBC 0.1 /100 WBC (0) H 01/23/19 03:00 Platelet Estimate Decreased (Normal) L 01/15/19 01:41 Clumped Platelets Few (Not Present) A 01/13/19 23:51 Immature Plt Fraction 15.7 % (1.1-6.1) H 01/19/19 03:30 PT 12.4 Seconds (9.4-12.1) H 01/21/19 04:09 APTT 71.6 Seconds (26.0-36.0) H D 01/20/19 05:37 D-Dimer 1026 ng/mLFEU (0-500) H 01/13/19 20:29 Heparin Anti-Xa, Unfract 0.01 IU/mL (0.30-0.70) L 01/20/19 22:17 ABG pH 7.46 pH Units (7.32-7.45) H 01/21/19 04:29 ABG pCO2 50 mmHg (35-45) H 01/20/19 04:52 ABG pO2 69 mmHg (85-104) L 01/20/19 04:52 ABG HCO3 32 mEq/L (21-27) H 01/21/19 04:29 ABG Total CO2 33 mEq/L (20-26) H 01/21/19 04:29 ABG O2 Saturation 93 % (95-98) L 01/20/19 04:52 ABG Base Excess 7 mEq/L (-2 to 3) H 01/21/19 04:29 Sodium 146 mEq/L (136-145) H 01/19/19 03:30 Chloride 109 mEq/L (98-107) H 01/20/19 05:37 Carbon Dioxide 30 mEq/L (23-29) H 01/21/19 04:09 BUN 32 mg/dL (8-23) H 01/21/19 04:09 Creatinine 0.40 mg/dL (0.60-1.20) L 01/23/19 03:00 BUN/Creatinine Ratio 50 (6-26) H 01/23/19 03:00 Glucose 108 mg/dL (70-105) H 01/23/19 03:00 POC Glucose 104 mg/dL (70-99) H 01/23/19 05:53 Calculated Osmolality 304 (280-300) H 01/21/19 04:09 Lactic Acid 3.0 mmol/L (0.5-2.2) H 01/14/19 09:26 Calcium 8.2 mg/dL (8.6-10.3) L 01/23/19 03:00 Phosphorus 2.4 mg/dL (2.7-4.5) L 01/21/19 04:09 Troponin I 0.54 ng/mL (< 0.04) H* 01/15/19 01:41 B-Natriuretic Peptide 121 pg/mL (Less than 100) H 01/13/19 20:07 Serum Total Protein 5.4 g/dL (6.4-8.9) L 01/18/19 04:24 Albumin 3.4 g/dL (3.5-5.7) L 01/18/19 04:24 Globulin 2.0 g/dL (2.4-3.5) L 01/18/19 04:24 Lipase 7 Units/L (11-82) L 01/13/19 20:07 Procalcitonin 1.89 ng/mL (0.00-0.15) H 01/14/19 09:26 Urine Clarity Turbid (Clear) A 01/14/19 02:40 Urine Protein 30 mg/dL (Neg-Trace) H 01/14/19 02:40 Urine Ketones 80 mg/dL (Negative) H 01/14/19 02:40 Urine Blood Large (Negative) H 01/14/19 02:40 Urine Bilirubin Small (Negative) H 01/14/19 02:40 Ur Leukocyte Esterase Trace (Negative) H 01/14/19 02:40 Urine Microscopic RBC TNTC per hpf (0-3) H 01/14/19 02:40 Urine Microscopic WBC 15-30 per hpf (0-3) H 01/14/19 02:40 Ur Squamous Epith Cells Many per lpf (None-Few) H 01/14/19 02:40 Ur Culture Indicated? YES (NO) A 01/14/19 02:40 - Clinical Findings Intake & Output: Intake & Output 01/22/19 01/22/19 01/23/19 15:59 23:59 07:59 Intake Total 134 / 430.0 70 / 430.0 180 / 180 Output Total 600 / 1810 550 / 1810 0 / 0 Balance -466 / -1380.0 -480 / -1380.0 180 / 180 Weight 62.1 kg - VTE Reasons for not Prescribing Prophylaxis: Not indicated-Anticoagulated or INR therapeutic Consult Discharge Plan - Plan Referrals: Lissette Chen, [employer] [Primary Care Provider] - <Eloisa Campos - Last Filed: 01/23/19 21:18> Date of Encounter: 01/23/19 Objective PUL Vital signs: Last Vital Signs Temp 98.6 F 01/23/19 19:57 Pulse 106 01/23/19 19:57 Resp 24 01/23/19 19:57 BP 137/92 01/23/19 19:57 Pulse Ox 99 01/23/19 19:57 Results - Laboratory Findings CBC and BMP: 01/23/19 03:00 01/23/19 03:00 ABG ABG pH 7.46 pH Units (7.32-7.45) H 01/21/19 04:29 ABG pCO2 45 mmHg (35-45) 01/21/19 04:29 ABG pO2 102 mmHg (85-104) 01/21/19 04:29 ABG O2 Saturation 98 % (95-98) 01/21/19 04:29 PT/INR, D-dimer PT 12.4 Seconds (9.4-12.1) H 01/21/19 04:09 D-Dimer 1026 ng/mLFEU (0-500) H 01/13/19 20:29 Abnormal lab findings: Abnormal lab results WBC 13.5 K/mcL (4.3-11.1) H 01/23/19 03:00 RBC 2.86 M/mcL (3.82-4.97) L 01/23/19 03:00 Hgb 8.8 g/dL (11.5-15.4) L 01/23/19 03:00 Hct 27.2 % (35.3-44.9) L 01/23/19 03:00 MCV 100.5 fL (83.0-100.0) H 01/14/19 09:26 MCHC 31.5 g/dL (31.6-35.5) L 01/21/19 04:09 Plt Count 137 K/mcL (140-400) L 01/23/19 03:00 MPV 13.1 fL (9.4-12.4) H 01/23/19 03:00 Neutrophils # 11.3 K/mcL (1.6-8.9) H 01/23/19 03:00 Lymphocytes # 0.5 K/mcL (0.6-4.6) L 01/20/19 05:37 Monocytes # 1.4 K/mcL (0.0-1.3) H 01/21/19 04:09 Nucleated RBCs/100 WBC 0.1 /100 WBC (0) H 01/23/19 03:00 Platelet Estimate Decreased (Normal) L 01/15/19 01:41 Clumped Platelets Few (Not Present) A 01/13/19 23:51 Immature Plt Fraction 15.7 % (1.1-6.1) H 01/19/19 03:30 PT 12.4 Seconds (9.4-12.1) H 01/21/19 04:09 APTT 71.6 Seconds (26.0-36.0) H D 01/20/19 05:37 D-Dimer 1026 ng/mLFEU (0-500) H 01/13/19 20:29 Heparin Anti-Xa, Unfract 0.01 IU/mL (0.30-0.70) L 01/20/19 22:17 ABG pH 7.46 pH Units (7.32-7.45) H 01/21/19 04:29 ABG pCO2 50 mmHg (35-45) H 01/20/19 04:52 ABG pO2 69 mmHg (85-104) L 01/20/19 04:52 ABG HCO3 32 mEq/L (21-27) H 01/21/19 04:29 ABG Total CO2 33 mEq/L (20-26) H 01/21/19 04:29 ABG O2 Saturation 93 % (95-98) L 01/20/19 04:52 ABG Base Excess 7 mEq/L (-2 to 3) H 01/21/19 04:29 Sodium 146 mEq/L (136-145) H 01/19/19 03:30 Chloride 109 mEq/L (98-107) H 01/20/19 05:37 Carbon Dioxide 30 mEq/L (23-29) H 01/21/19 04:09 BUN 32 mg/dL (8-23) H 01/21/19 04:09 Creatinine 0.40 mg/dL (0.60-1.20) L 01/23/19 03:00 BUN/Creatinine Ratio 50 (6-26) H 01/23/19 03:00 Glucose 108 mg/dL (70-105) H 01/23/19 03:00 POC Glucose 140 mg/dL (70-99) H 01/23/19 17:25 Calculated Osmolality 304 (280-300) H 01/21/19 04:09 Lactic Acid 3.0 mmol/L (0.5-2.2) H 01/14/19 09:26 Calcium 8.2 mg/dL (8.6-10.3) L 01/23/19 03:00 Phosphorus 2.4 mg/dL (2.7-4.5) L 01/21/19 04:09 Troponin I 0.54 ng/mL (< 0.04) H* 01/15/19 01:41 B-Natriuretic Peptide 121 pg/mL (Less than 100) H 01/13/19 20:07 Serum Total Protein 5.4 g/dL (6.4-8.9) L 01/18/19 04:24 Albumin 3.4 g/dL (3.5-5.7) L 01/18/19 04:24 Globulin 2.0 g/dL (2.4-3.5) L 01/18/19 04:24 Lipase 7 Units/L (11-82) L 01/13/19 20:07 Procalcitonin 1.89 ng/mL (0.00-0.15) H 01/14/19 09:26 Urine Clarity Turbid (Clear) A 01/14/19 02:40 Urine Protein 30 mg/dL (Neg-Trace) H 01/14/19 02:40 Urine Ketones 80 mg/dL (Negative) H 01/14/19 02:40 Urine Blood Large (Negative) H 01/14/19 02:40 Urine Bilirubin Small (Negative) H 01/14/19 02:40 Ur Leukocyte Esterase Trace (Negative) H 01/14/19 02:40 Urine Microscopic RBC TNTC per hpf (0-3) H 01/14/19 02:40 Urine Microscopic WBC 15-30 per hpf (0-3) H 01/14/19 02:40 Ur Squamous Epith Cells Many per lpf (None-Few) H 01/14/19 02:40 Ur Culture Indicated? YES (NO) A 01/14/19 02:40 - Clinical Findings Intake & Output: Intake & Output 01/23/19 01/23/19 01/23/19 07:59 15:59 23:59 Intake Total 180 / 502 142 / 502 180 / 502 Output Total 0 / 800 600 / 800 200 / 800 Balance 180 / -298 -458 / -298 -20 / -298 Weight 59.6 kg - Attending Attestation - Attending Attestation I saw and evaluated this patient and my medical decision-making was reviewed with the Resident Physician. I agree with the documented findings, disposition and treatment plan as described except to the extent set forth below. We independently had [id number] contact with the patient Patient seen and examined at bedside Labs, radiology, chart personally reviewed. Management was reviewed during multidisciplinary critical care rounds. ARMATURE COIL WINDER: Patient is conscious and she is awake and alert and she understands her disease process patient does not show any evidence of encephalopathy no evidence of focal neurological deficit 01/21 patient is awake following commands patient did well on the pressure support ventilation will extubated to BiPAP. 01/22 patient is breathing well with the nasal cannula no evidence of toxic/metabolic encephalopathy no evidence of focal neurological deficit 01/23 patient is awake conscious oriented understands that she is high risk for surgery. Cardiothoracic surgery spoke with the patient was surgery for now patient will be reevaluated later Pulm: Patient has acceptable oxygenation and ventilation patient has severe COPD with bullous emphysema with spontaneous pneumothorax patient has chest tube not much leak cardiothoracic surgery is following patient will need to surgical intervention at some point during this current illness. Cardiothoracic surgery wanted to cardiac clearance before surgery. 01/20 patient had cardiac catheterization showed minimal coronary artery disease most likely this all due to nonischemic cardiomyopathy. Patient has acceptable oxygenation and ventilation with low tidal volume strategy. Patient needed a higher pressure support to maintain a decent minute ventilation discuss with the respiratory therapist to do smart care pressure support ventilation. 01/21 Patient has significant bilateral bullous emphysematous disease complicated by spontaneous pneumothorax on the right side with chest tube no air leak. Patient passed the spontaneous breathing trial with pressure support ventilation will extubated to BiPAP 04/01 01/22 patient has significant bilateral bullous disease patient with spontaneous pneumothorax as acceptable oxygenation and ventilation. She did well overnight with BiPAP to give intermittent breaks to use BiPAP during the night. According to cardiothoracic surgery patient will be a poor surgical candidate because of severe obstructive ventilatory impairment 01/23 patient has acceptable oxygenation and ventilation right-sided chest tube should be left until Friday according to cardiothoracic surgery. No evidence of pneumonia. Cards: Patient had EF of 20-25% with wall motion abnormalities patient had a cardiac catheterization which showed mild coronary artery disease most likely nonischemic cardiomyopathy to continue the current cardiac regimen. Cardiology patient will be moderate to high risk candidate for surgery. To keep her electrolytes especially potassium and magnesium normal range patient has high risk for arrhythmias. 01/20 patient has nonischemic cardiomyopathy patient will be a moderate to high risk candidate for surgery. To keep the electrolytes are within normal limits 01/21 she has nonischemic cardiomyopathy moderate high risk for surgery 01/22 patient has nonischemic cardiomyopathy to control preload and afterload the. 01/23 Patient has nonischemic cardiomyopathy no signs of fluid overload. FEN-GI: Advance diet as tolerated Renal: Labs and output were reviewed ID: No active infectious disease going Heme/Onc: Labs reviewed Endo: Glucose Monitored Integ/MSK: Skin Care per routine ICU Nursing Protocol to prevent ulcers. Lines: All lines examined without evidence of infection : Dispo: Can be transferred to Medical telemetry
[2019-01-23] MEDS ORDERED: Mag Hydrox/Al Hydrox/Simeth 30 ML UDC PO PRN (07:33)
[2019-01-23] MEDS: Pantoprazole 40 MG VIAL IVP SCH (07:53)
--- NOTE | 2019-01-23 08:46 | Cardiothoracic Progress Note ---
Date of Encounter: 01/23/19 Time of Encounter: 08:45 - Assessment and plan (1) Giant bullous emphysema Current Visit: Yes Status: Acute We will leave the chest tube in until Friday. - Subjective Interval history: The patient remains extubated and has no complaints. Vital Signs, Last 4 Hours Temp Pulse Resp BP Pulse Ox 01/23/19 07:56 91 21 121/68 98 01/23/19 07:37 16 98 01/23/19 07:16 98.2 F 01/23/19 06:00 84 16 91/54 98 01/23/19 05:11 84 17 91/59 99 Oxgyen Flow Rate Oxygen Flow Rate (LPM) 2 Clinical Data, last 8 Hours Output, Chest Tube Drainage 0 Amount [Right Mid-Clavicular Chest] Output, Chest Tube Drainage 0 Amount [Right Mid-Clavicular Chest] Weight 01/21/19 01/22/19 01/23/19 23:59 23:59 23:59 Weight 59.8 kg 62.1 kg Lungs are clear to percussion and auscultation. Chest tube drainage is minimal and there is no air leak. Chest x-ray reveals no pneumothorax. - Labs 01/23/19 03:00 01/23/19 03:00 Lab Results, Last 24 hours 01/23/19 01/23/19 03:00 03:00 WBC 13.5 H Hgb 8.8 L Hct 27.2 L Plt Count 137 L Sodium 137 Potassium 4.2 Chloride 106 Carbon Dioxide 28 BUN 20 Creatinine 0.40 L Glucose 108 H Calcium 8.2 L Magnesium 2.1 - VTE Reasons for not Prescribing Prophylaxis: Not indicated-Anticoagulated or INR therapeutic Consult Discharge Plan - Plan Referrals: Lissette Chen, ARIANE [Primary Care Provider] -
--- NOTE | 2019-01-23 08:47 | Internal Med Progress Note ---
Hospitalist Progress Note - Encounter Date of Encounter: 01/23/19 Time of Encounter: 08:43 - Subjective Interval History: 60-year-old female with a history of COPD, admitted for acute COPD exacerbation, ultimately requiring intubation. She was noted of a right-sided pneumothorax for which a chest tube was placed. [facility] Patient has severe bolus emphysema, and is currently under discussions with cardiothoracic surgery for consideration of lung reduction surgery. During this admission she also had an elevated troponin and ultimately underwent cardiac catheterization which showed nonobstructive disease. She does have a nonischemic cardiac myopathy with a EF of 20-25%, felt to be consistent with stress-induced cardiomyopathy. She remains on beta shani and ERIKA inhibitor. She is still on ventilatory support and we are attempting a CPAP trial presently to hopefully extubate this patient. Patient is currently being treated for pneumonia for which she is on day #8 of Zosyn. Overall she is showing significant clinical improvement but has very severe lung disease with poor reserve. 01/23: Patient is doing well. She was extubated on 01/22. She still complains of some mild discomfort over her right anterior chest which she has had for the last several days, with subcutaneous emphysema. She also has some mild nausea this morning, and heartburn, asking for malox. Breathing is improved. No fevers or chills. Reports weakness. Patient has completed 9 days of Zosyn, which we stopped on 01/22. She was seen by cardiothoracic surgery who felt that due to her low pulmonary function she is not a candidate for further surgical intervention for her bullous emphysema. Patient continues on prednsione 40 mg po daily, which can be tapered over next 7-10 days. She otherwise is stable for transfer to general medical bed. Other than that mentioned above, a 10 pt ROS is negative - Exam Vitals: Temp Pulse Resp BP Pulse Ox 98.2 F 91 21 121/68 98 01/23/19 07:16 01/23/19 07:56 01/23/19 07:56 01/23/19 07:56 01/23/19 07:56 Exam: General: Awake, alert, no acute distress, cachectic Neck supple OP moist HEENT: no icterus, neck supple Chest: Dimin bs bilat bases, coarse rhonchi ant cummins. Mild tenderness right anterior chest wall. CT right ant chest wall. Ht: RRR Abdomen: soft NT, ND, + BS, no HSMG Ext: No CCE, equal pulses, no calf swelling Neuro: sedated, + purposeful movements Skin: warm and dry Imp/Plan: Acute Hypoxic Respiratory Failure: Severe COPD, PNA Currently intubated and sedated; Steroids, aerosols, antibiotics (Day # 8 Zosyn, Day #6 Doxycycline (stopped on 01/20), Cefepime discontinued on 01/[address] -- pulmonary/CTS to follow. 01/22: Antibiotics stopped today, she has completed 9 days of Zosyn. 01/23: Remains on 2L O2 per NC PNA -Abx as outlined above, s/p 9 days Zosyn stopped on 01/22 -Blood cx neg Spontaneous pneumothorax: 1. Chest tube placed at [facility]; current management per CTS -Unfortunately not a surgical candidate for lung reduction surgery -CT with min drainage, defer management to CTS/Pulm NSTEMI: Cardiology following ECHO showed EF of 20-25% with wall motion abnormalities, concern for Takotsubo cardiomyopathy left heart catheterization showed nonobx CAD, hep gtt stopped Acute on chronic systolic CHF -ERIKA Inhibitor -BB -monitor -?future AICD if no recovery UTI: Culture neg Continue antibiotics as outlined above for PNA which wuld cover most urinary pathogens as well DVT prohylaxis: -SubQ Heparin Hypernatremia -resolved DVT Prophylaxis -SubQ heparin - Time Spent with Patient Total time spent is greater than 50% in coordination of care (as documented) at patient's floor/unit and/or counseling patient: Greater than 35 minutes Internal Medicine: Result - Labs CBC & Chem 7: 01/23/19 03:00 01/23/19 03:00 Labs: Short CBC 01/23/19 Range/Units 03:00 WBC 13.5 H (4.3-11.1) K/mcL Hgb 8.8 L (11.5-15.4) g/dL Hct 27.2 L (35.3-44.9) % Plt Count 137 L (140-400) K/mcL Neutrophils # 11.3 H (1.6-8.9) K/mcL BMP 01/23/19 03:00 Sodium 137 Potassium 4.2 Chloride 106 Carbon Dioxide 28 BUN 20 Creatinine 0.40 L Glucose 108 H Calcium 8.2 L - ABG Interpretation ABG results: ABG ABG pH 7.46 pH Units (7.32-7.45) H 01/21/19 04:29 ABG pCO2 45 mmHg (35-45) 01/21/19 04:29 ABG pO2 102 mmHg (85-104) 01/21/19 04:29 ABG O2 Saturation 98 % (95-98) 01/21/19 04:29 PT/INR, D-dimer PT 12.4 Seconds (9.4-12.1) H 01/21/19 04:09 D-Dimer 1026 ng/mLFEU (0-500) H 01/13/19 20:29 - VTE Reasons for not Prescribing Prophylaxis: Not indicated-Anticoagulated or INR therapeutic Consult Discharge Plan - Plan Referrals: Lissette Chen, SERV[employer] EMPLOYEE [Primary Care Provider] -
[2019-01-23] MEDS: Ondansetron 4 MG/2 ML VIAL IVP PRN ×2 (09:52→22:13)
[2019-01-23] MEDS: Sennosides/Docusate Sodium TABLET PO SCH (09:53)
[2019-01-23] MEDS: Aspirin 81 MG TAB.CHEW GTUBE SCH (09:53)
[2019-01-23] MEDS ORDERED: Metoclopramide 10 MG/10 ML UD.LIQ PO SCH (12:00)
[2019-01-23] MEDS ORDERED: Famotidine 20 MG TABLET PO SCH (13:00)
[2019-01-23] MEDS ORDERED: Albuterol 2.5 MG/3 ML NEBULIZER IH PRN (14:54)
[2019-01-23] MEDS ORDERED: *HR* OxyCODONE/APAP 5/325 TABLET PO PRN (14:54)
[2019-01-23] MEDS ORDERED: *HR* HYDROcodone/Acet 5/325 mg TABLET PO PRN (14:54)
[2019-01-23] MEDS ORDERED: Naloxone 0.4 MG/ML INJ IVP PRN (14:54)
[2019-01-23] MEDS ORDERED: Acetaminophen 325 MG TABLET PO PRN (14:54)
[2019-01-23] MEDS ORDERED: Calcium Gluconate 1gm/50mL 1 GM/50 ML BAG IVPB PRN (14:54)
[2019-01-23] MEDS ORDERED: Ipratropium/Albuterol Neb 3 ML ONE (15:02)
[2019-01-23] MEDS: Famotidine 20 MG TABLET PO SCH (22:04)
[2019-01-24 03:45] LABS: Hematocrit 28.5 % (35.3-44.9); Mean Corpuscular HGB Conc 31.6 g/dL (31.6-35.5); Mean Corpuscular Hemoglobin 30.7 pg (28.0-33.3); Mean Corpuscular Volume 97.3 fL (83.0-100.0); Mean Platelet Volume 12.8 fL (9.4-12.4); Platelet Count 170 K/mcL (140-400); Red Blood Count 2.93 M/mcL (3.82-4.97); Red Cell Distribution Width 14.6 % (11.5-14.5); White Blood Count 19.9 K/mcL (4.3-11.1)
[2019-01-24 04:05] LABS: BUN/Creatinine Ratio 34 (6-26); Blood Urea Nitrogen 17 mg/dL (8-23); Calcium 8.7 mg/dL (8.6-10.3); Carbon Dioxide 31 mEq/L (23-29); Chloride 108 mEq/L (98-107); Glucose 98 mg/dL (70-105); Osmolality,Calculated 290 (280-300); Potassium 3.6 mEq/L (3.5-5.1); Sodium 139 mEq/L (136-145); eGFR For African Americans > 60 (> 60); eGFR For Non-African Americans > 60 (> 60)
[2019-01-24] MEDS: Ipratropium/Albuterol Neb 3 ML IH SCH ×5 (04:09→19:47)
[2019-01-24] MEDS: *HR* Heparin 5,000 UNIT/ML VIAL SQ SCH ×2 (05:25→17:13)
--- NOTE | 2019-01-24 08:55 | Cardiothoracic Progress Note ---
Date of Encounter: 01/24/19 Time of Encounter: 08:54 - Assessment and plan (1) Giant bullous emphysema Current Visit: Yes Status: Acute I took the chest tube off suction. We will check a chest x-ray tomorrow morning. If this looks good, the chest tube can be removed. - Subjective Interval history: The patient is on the floor and has no complaints. Vital Signs, Last 4 Hours Temp Pulse Resp BP Pulse Ox 01/24/19 06:54 98.4 F 87 18 133/73 96 Oxgyen Flow Rate Oxygen Flow Rate (LPM) 2 Clinical Data, last 8 Hours Output, Chest Tube Drainage 0 Amount [Right Mid-Clavicular Chest] Weight 01/22/19 01/23/19 01/24/19 23:59 23:59 23:59 Weight 62.1 kg 59.6 kg 59.6 kg Lungs are clear to percussion and auscultation. Her chest tube drainage is minimal and there is no air leak. Chest x-ray reveals no pneumothorax. - Labs 01/24/19 03:30 01/24/19 03:30 Lab Results, Last 24 hours 01/24/19 01/24/19 03:30 03:30 WBC 19.9 H Hgb 9.0 L Hct 28.5 L Plt Count 170 Sodium 139 Potassium 3.6 Chloride 108 H Carbon Dioxide 31 H BUN 17 Creatinine 0.50 L Glucose 98 Calcium 8.7 - VTE Reasons for not Prescribing Prophylaxis: Not indicated-Anticoagulated or INR therapeutic Consult Discharge Plan - Plan Referrals: Lissette Chen CNP [Primary Care Provider] -
[2019-01-24] MEDS ORDERED: Aspirin 81 MG TAB.CHEW GTUBE SCH (09:00)
[2019-01-24] MEDS ORDERED: predniSONE 20 MG TABLET PO SCH (09:00)
[2019-01-24] MEDS: Famotidine 20 MG TABLET PO SCH ×2 (09:44→19:53)
[2019-01-24] MEDS: Sennosides/Docusate Sodium TABLET PO SCH (09:44)
[2019-01-24] MEDS: predniSONE 20 MG TABLET PO SCH (09:45)
[2019-01-24] MEDS: Ondansetron 4 MG/2 ML VIAL IVP PRN ×2 (09:46→17:13)
--- NOTE | 2019-01-24 12:03 | Internal Med Progress Note ---
Hospitalist Progress Note - Encounter Date of Encounter: 01/24/19 Time of Encounter: 12:01 - Subjective Interval History: Transferred out of the ICU yesterday. Patient having some right-sided chest pain at site of chest tube but otherwise doing remarkably well. On her home oxygen requirement. Encephalopathy appeared to have improved. Patient very joshua kative this morning. - Exam Vitals: Temp Pulse Resp BP Pulse Ox 97.9 F 79 16 133/71 97 01/24/19 11:21 01/24/19 11:21 01/24/19 11:21 01/24/19 11:21 01/24/19 11:21 Exam: General: Ill-appearing and in no acute distress HEENT: No erythema of posterior pharynx. No exudates. Lymphatics: No mandibular or cervical lymphadenopathy Cardiovascular: RRR. No murmurs. No chest wall tenderness. Chest tube along anterior R chest wall. Lungs: Decreased breath sounds throughout. Regular chest rise. Abdomen: Non-tender. No rebound or gaurding. Nl bowel sounds. Extremities: No edema. 2+ pulses radial and pedal pulses Skin: No rahses, abrasions, or contusions. Nl cap refill. Psych: Nl attention. A&Ox3 Neuro: sand polisher II-XII intact. 5/5 strength. Sensation to light touch and pinprick intact. - Assessment and Plan (1) Acute respiratory failure with hypoxia Current Visit: Yes Status: Acute (2) Acute encephalopathy Current Visit: Yes Status: Acute (3) NSTEMI (non-ST elevated myocardial infarction) Current Visit: Yes Status: Acute (4) Giant bullous emphysema Current Visit: Yes Status: Acute (5) COPD exacerbation Current Visit: Yes Status: Acute (6) Secondary spontaneous pneumothorax Current Visit: Yes Status: Acute (7) Anemia Current Visit: Yes Status: Acute (8) Intensive care (ICU) myopathy Current Visit: Yes Status: Acute DVT Prophylaxis: heparin - Summary of Assessment and Plan Summary of Assessment and Plan: Acute on chronic hypoxic respiratory failure Secondary spontaneous pneumothorax Giant bullous emphysema COPD exacerbation Community-acquired pneumonia Patient with history of COPD presented with acute decompensated COPD and found to have a right-sided pneumothorax status post chest tube placement. -Spontaneous Pneumothorax thought to be a competition of severe COPD with giant bullous emphysema -Was initially intubated but is status post extubation 01/22 and doing well on home 2 L of oxygen -Cardiothoracic surgery was evaluating patient for lung reduction surgery however not a candidate due to low pulmonary function -Chest tube still in place. Cardiothoracic surgery following an plan to remove chest tube 01/25 -Has been treated for community-acquired pneumonia during hospital stay with various antibiotics but most recently status post Zosyn 01/22 PLAN: - Chest tube management and removal per cardiothoracic surgery - Taper prednisone - Oxycodone and Tylenol when necessary for chest tube pain Intensive care myopathy Extremely weak from hospital stay in the ICU. Can hardly move her lower extremities. Will definitely need SNF. - PT OT - SW consult for SNF placement Leukocytosis -WBC up to 19.9 today. -Blood cultures and urine culture from earlier in hospitalization NGTD. -Has been treated for community-acquired pneumonia during hospital stay with va rious antibiotics but most recently status post Zosyn 01/22 -No pulmonary complaints. Denies dysuria. Denies abdominal pain. PLAN: - Repeat blood cultures - UA - Sputum culture - If above negative and increasing leukocytosis again tomorrow, would recommend CT chest to evaluate for non-resolving pulmonary process Acute encephalopathy Apparently patient was very encephalopathic during ICU stay. Hallucinating. This has since completely resolved. - Monitor NSTEMI HFrEF EF 20-25% Takotsubo Cardiomyopathy Patient had troponin elevation to 1.03 in the setting of new systolic dysfunction with EF 20-25%. LHC with minimal CAD. Thought to be stress induced cardiac myopathy from critical illness. - Cont ASA, statin, BB, ACEi - Close monitoring of fluid status - may need Lasix this hospitalization - Repeat echo before discharge from the hospital because often this cardiomyopathy subgroup quickly recovers Internal Medicine: Result - Labs CBC & Chem 7: 01/24/19 03:30 01/24/19 03:30 Labs: Short CBC 01/24/19 Range/Units 03:30 WBC 19.9 H (4.3-11.1) K/mcL Hgb 9.0 L (11.5-15.4) g/dL Hct 28.5 L (35.3-44.9) % Plt Count 170 (140-400) K/mcL BMP 01/24/19 03:30 Sodium 139 Potassium 3.6 Chloride 108 H Carbon Dioxide 31 H BUN 17 Creatinine 0.50 L Glucose 98 Calcium 8.7 - ABG Interpretation ABG results: ABG ABG pH 7.46 pH Units (7.32-7.45) H 01/21/19 04:29 ABG pCO2 45 mmHg (35-45) 01/21/19 04:29 ABG pO2 102 mmHg (85-104) 01/21/19 04:29 ABG O2 Saturation 98 % (95-98) 01/21/19 04:29 PT/INR, D-dimer PT 12.4 Seconds (9.4-12.1) H 01/21/19 04:09 D-Dimer 1026 ng/mLFEU (0-500) H 01/13/19 20:29 - Impressions Impressions Chest X-Ray 01/23/19 12:12 IMPRESSION: No residual right-sided pneumothorax appreciated. Severe bullous changes present in the upper left lung. Clear lungs. D/ / Martinez Cabrera MD / Martinez Cabrera MD Interpreting Provider: Martinez Cabrera MD Chest X-Ray 01/24/19 06:37 IMPRESSION: 1. Stable pigtailed chest tube overlying the right upper lung zone, without current evidence of a pneumothorax. 2. Significant interval improvement in appearance of subcutaneous emphysema throughout the right chest wall. 3. Stable left basilar atelectasis. 4. Chronic left apical bullous emphysema. D/ / 01/24/2019 10:00:07 Roberto Carlos Ramesh MD / Kylie Guo Interpreting Provider: Roberto Carlos Ramesh MD - VTE Reasons for not Prescribing Prophylaxis: Not indicated-Anticoagulated or INR therapeutic Consult Discharge Plan - Plan Referrals: Lissette Cehn, GRAIN II FARMWORKER [Primary Care Provider] - (7) Anemia Qualifiers: Anemia type: unspecified type Qualified Code(s): D64.9 - Anemia, unspecified
[2019-01-24 14:43] LABS: Bilirubin,Urine Negative (Negative); Blood,Urine Negative (Negative); Clarity,Urine Clear (Clear); Color,Urine Yellow (Yellow); Glucose,Urine (UA) Normal (Normal); Ketones,Urine 40 mg/dL (Negative); Leukocyte Esterase,Urine Negative (Negative); Nitrite,Urine Negative (Negative); PH,Urine 7.5 pH Units (5.0-8.0); Protein,Urine Trace mg/dL (Neg-Trace); Urobilinogen,Urine Normal (Normal)
[2019-01-25] MEDS: Ipratropium/Albuterol Neb 3 ML IH SCH ×7 (00:24→23:37)
[2019-01-25 03:24] LABS: Hematocrit 26.2 % (35.3-44.9); Hemoglobin 8.2 g/dL (11.5-15.4); Mean Corpuscular HGB Conc 31.3 g/dL (31.6-35.5); Mean Corpuscular Hemoglobin 30.8 pg (28.0-33.3); Mean Corpuscular Volume 98.5 fL (83.0-100.0); Mean Platelet Volume 12.6 fL (9.4-12.4); Platelet Count 149 K/mcL (140-400); Red Blood Count 2.66 M/mcL (3.82-4.97); Red Cell Distribution Width 14.9 % (11.5-14.5); White Blood Count 14.9 K/mcL (4.3-11.1)
[2019-01-25 03:42] LABS: BUN/Creatinine Ratio 38 (6-26); Blood Urea Nitrogen 17 mg/dL (8-23); Calcium 8.1 mg/dL (8.6-10.3); Carbon Dioxide 31 mEq/L (23-29); Chloride 109 mEq/L (98-107); Glucose 102 mg/dL (70-105); Osmolality,Calculated 290 (280-300); Potassium 3.6 mEq/L (3.5-5.1); Sodium 139 mEq/L (136-145); eGFR For African Americans > 60 (> 60); eGFR For Non-African Americans > 60 (> 60)
[2019-01-25] MEDS: *HR* Heparin 5,000 UNIT/ML VIAL SQ SCH ×2 (05:13→18:16)
[2019-01-25] MEDS: Ondansetron 4 MG/2 ML VIAL IVP PRN (07:48)
[2019-01-25] MEDS: Aspirin 81 MG TAB.CHEW PO SCH (10:13)
[2019-01-25] MEDS: Sennosides/Docusate Sodium TABLET PO SCH (10:13)
[2019-01-25] MEDS: predniSONE 20 MG TABLET PO SCH (10:13)
[2019-01-25] MEDS: Famotidine 20 MG TABLET PO SCH ×2 (10:14→21:29)
--- NOTE | 2019-01-25 11:40 | Cardiothoracic Progress Note ---
Date of Encounter: 01/25/19 Time of Encounter: 11:38 - Assessment and plan (1) Giant bullous emphysema Current Visit: Yes Status: Acute The assessment and plan as outlined above was discussed with the patient and/or family members who expressed understanding and agreement. All questions were answered. rounded with nurse and family change in chest tube management, plan to clamp chest tube tonight and reeval. with xray in am. patient would not want a tracheostomy or remote computer terminal operator vent support. (2) Acute respiratory failure with hypoxia Current Visit: Yes Status: Acute The assessment and plan as outlined above was discussed with the patient and/or family members who expressed understanding and agreement. All questions were answered. (3) NSTEMI (non-ST elevated myocardial infarction) Current Visit: Yes Status: Acute The assessment and plan as outlined above was discussed with the patient and/or family members who expressed understanding and agreement. All questions were answered. cardiac progress note reviewed. Oxgyen Flow Rate Oxygen Flow Rate (LPM) 3 Weight 01/23/19 01/24/19 01/25/19 23:59 23:59 23:59 Weight 59.6 kg 59.6 kg 59.12 kg - Physical Examination General: Conversant, No Apparent Distress, Well developed, Well nourished HEENT: Atraumatic, Normocephaly Cardiac: Reg Rate and Rhythm, Normal S1 and S2 Incision: No signs of infection, Dry/intact dressing Chest tubes: Minimal drainage Lungs: Decreased breath sounds Neuro: Alert and responsive, No focal deficits noted, Cranial nerves intact, Mo tor nerves intact - Labs 01/25/19 03:15 01/25/19 03:15 Lab Results, Last 24 hours 01/25/19 01/25/19 03:15 03:15 WBC 14.9 H Hgb 8.2 L Hct 26.2 L Plt Count 149 Sodium 139 Potassium 3.6 Chloride 109 H Carbon Dioxide 31 H BUN 17 Creatinine 0.45 L Glucose 102 Calcium 8.1 L - VTE Reasons for not Prescribing Prophylaxis: Not indicated-Anticoagulated or INR therapeutic Consult Discharge Plan - Plan Referrals: Lissette Chen, SHEET METAL DUCT INSTALLER APPRENTICE [Primary Care Provider] -
--- NOTE | 2019-01-25 15:47 | Internal Med Progress Note ---
Hospitalist Progress Note - Encounter Date of Encounter: 01/25/19 Time of Encounter: 09:00 - Subjective Interval History: Patient was seen at bedside. Complaining of spinning sensation when she wakes up in the morning and moves her head. Also has associated nausea with the spinning sensation. Denies chest pain, shortness of breath at this point. Radha cedeno has a chest tube in place. Denies fever, chills, rigors. No other overnight events. - Exam Vitals: Temp Pulse Resp BP Pulse Ox 98.3 F 82 18 141/70 92 01/25/19 07:11 01/25/19 07:11 01/25/19 11:38 01/25/19 07:11 01/25/19 11:38 Exam: General: Ill-appearing and in no acute distress HEENT: No erythema of posterior pharynx. No exudates. Lymphatics: No mandibular or cervical lymphadenopathy Cardiovascular: RRR. No murmurs. No chest wall tenderness. Chest tube along anterior R chest wall. Lungs: Decreased breath sounds throughout. Regular chest rise. Abdomen: Non-tender. No rebound or gaurding. Nl bowel sounds. Extremities: No edema. 2+ pulses radial and pedal pulses Skin: No rahses, abrasions, or contusions. Nl cap refill. Psych: Nl attention. A&Ox3 Neuro: business liaison officer II-XII intact. 5/5 strength. Sensation to light touch and pinprick intact. - Assessment and Plan (1) Acute respiratory failure with hypoxia Current Visit: Yes Status: Acute (2) Acute encephalopathy Current Visit: Yes Status: Acute (3) NSTEMI (non-ST elevated myocardial infarction) Current Visit: Yes Status: Acute (4) Giant bullous emphysema Current Visit: Yes Status: Acute (5) COPD exacerbation Current Visit: Yes Status: Acute (6) Secondary spontaneous pneumothorax Current Visit: Yes Status: Acute (7) Anemia Current Visit: Yes Status: Acute (8) Intensive care (ICU) myopathy Current Visit: Yes Status: Acute (9) Vertigo Current Visit: Yes Status: Acute - Summary of Assessment and Plan Summary of Assessment and Plan: Acute on chronic hypoxic respiratory failure Secondary spontaneous pneumothorax Giant bullous emphysema COPD exacerbation Community-acquired pneumonia Patient with history of COPD presented with acute decompensated COPD and found to have a right-sided pneumothorax status post chest tube placement. Spontaneous Pneumothorax thought to be a competition of severe COPD with giant bullous emphysema Was initially intubated but is status post extubation 01/22 and doing well on home 2 L of oxygen Cardiothoracic surgery was evaluating patient for lung reduction surgery however not a candidate due to low pulmonary function Chest tube still in place. Cardiothoracic surgery following an plan to remove chest tube balbir tomorrow Has been treated for community-acquired pneumonia during hospital stay with various antibiotics but most recently status post Zosyn completed on 01/22 PLAN: Chest tube management and removal per cardiothoracic surgery Taper prednisone Oxycodone and Tylenol when necessary for chest tube pain Intensive care myopathy Extremely weak from hospital stay in the ICU. Can hardly move her lower extremities. Will definitely need SNF. PT/OT recommending SNF SW on board for SNF placement Leukocytosis WBC tended down to 14.9 off the antibiotics Blood cultures and urine culture from earlier in hospitalization NGTD. Has been treated for community-acquired pneumonia during hospital stay with various antibiotics but most recently status post Zosyn 01/22 No pulmonary complaints. Denies dysuria. Denies abdominal pain. Continue to monitor Acute encephalopathy Resolved NSTEMI HFrEF EF 20-25% Takotsubo Cardiomyopathy Patient had troponin elevation to 1.03 in the setting of new systolic dysf unction with EF 20-25%. LHC with minimal CAD. Thought to be stress induced cardiac myopathy from critical illness. Currently euvolemic Cont ASA, statin, BB, ACEi Close monitoring of fluid status - may need Lasix this hospitalization Vertigo: Liely vertigo PRN meclizine - Time Spent with Patient Total time spent is greater than 50% in coordination of care (as documented) at patient's floor/unit and/or counseling patient: Internal Medicine: Result - Labs CBC & Chem 7: 01/25/19 03:15 01/25/19 03:15 Labs: Short CBC 01/25/19 Range/Units 03:15 WBC 14.9 H (4.3-11.1) K/mcL Hgb 8.2 L (11.5-15.4) g/dL Hct 26.2 L (35.3-44.9) % Plt Count 149 (140-400) K/mcL BMP 01/25/19 03:15 Sodium 139 Potassium 3.6 Chloride 109 H Carbon Dioxide 31 H BUN 17 Creatinine 0.45 L Glucose 102 Calcium 8.1 L - ABG Interpretation ABG results: ABG ABG pH 7.46 pH Units (7.32-7.45) H 01/21/19 04:29 ABG pCO2 45 mmHg (35-45) 01/21/19 04:29 ABG pO2 102 mmHg (85-104) 01/21/19 04:29 ABG O2 Saturation 98 % (95-98) 01/21/19 04:29 PT/INR, D-dimer PT 12.4 Seconds (9.4-12.1) H 01/21/19 04:09 D-Dimer 1026 ng/mLFEU (0-500) H 01/13/19 20:29 - Impressions Impressions Chest X-Ray 01/24/19 06:37 IMPRESSION: 1. Stable pigtailed chest tube overlying the right upper lung zone, without current evidence of a pneumothorax. 2. Significant interval improvement in appearance of subcutaneous emphysema throughout the right chest wall. 3. Stable left basilar atelectasis. 4. Chronic left apical bullous emphysema. D/ / 01/24/2019 10:00:07 Roberto Carlos Ramesh MD / Kylie Guo Interpreting Provider: Roberto Carlos Ramesh MD Chest X-Ray 01/25/19 07:13 IMPRESSION: 1. Stable right chest tube, without evidence of a pneumothorax. 2. Stable multifocal airspace opacity within the right lung and left lung base, representing either atelectasis or pneumonia. D/ / 01/25/2019 08:51:57 Roberto Carlos Ramesh MD / kim Interpreting Provider: Roberto Carlos Ramesh MD - VTE Reasons for not Prescribing Prophylaxis: Not indicated-Anticoagulated or INR therapeutic Consult Discharge Plan - Plan Referrals: Lissette Chen, BILLPOSTER [Primary Care Provider] - (7) Anemia Qualifiers: Anemia type: unspecified type Qualified Code(s): D64.9 - Anemia, unspecified
[2019-01-26] MEDS: Ipratropium/Albuterol Neb 3 ML IH SCH ×6 (03:34→23:51)
[2019-01-26] MEDS: *HR* Heparin 5,000 UNIT/ML VIAL SQ SCH ×2 (05:47→17:29)
[2019-01-26 06:10] LABS: Basophils % 0.2 %; Eosinophils # 0.1 K/mcL (0.0-0.6); Eosinophils % 0.5 %; Hematocrit 28.1 % (35.3-44.9); Hemoglobin 8.9 g/dL (11.5-15.4); Lymphocytes # 1.5 K/mcL (0.6-4.6); Lymphocytes % 8.7 %; Mean Corpuscular HGB Conc 31.7 g/dL (31.6-35.5); Mean Corpuscular Hemoglobin 30.4 pg (28.0-33.3); Mean Corpuscular Volume 95.9 fL (83.0-100.0); Mean Platelet Volume 12.8 fL (9.4-12.4); Monocytes # 1.5 K/mcL (0.0-1.3); Monocytes % 8.9 %; Neutrophils # 13.6 K/mcL (1.6-8.9); Platelet Count 173 K/mcL (140-400); Red Blood Count 2.93 M/mcL (3.82-4.97); Red Cell Distribution Width 15.1 % (11.5-14.5); Segmented Neutrophils % 79.7 %; White Blood Count 17.1 K/mcL (4.3-11.1)
[2019-01-26 06:43] LABS: BUN/Creatinine Ratio 30 (6-26); Blood Urea Nitrogen 13 mg/dL (8-23); Calcium 8.7 mg/dL (8.6-10.3); Carbon Dioxide 31 mEq/L (23-29); Chloride 107 mEq/L (98-107); Glucose 89 mg/dL (70-105); Osmolality,Calculated 290 (280-300); Potassium 4.5 mEq/L (3.5-5.1); Sodium 140 mEq/L (136-145); eGFR For African Americans > 60 (> 60); eGFR For Non-African Americans > 60 (> 60)
[2019-01-26] MEDS: predniSONE 20 MG TABLET PO SCH (08:45)
[2019-01-26] MEDS: Aspirin 81 MG TAB.CHEW PO SCH (08:45)
[2019-01-26] MEDS: Sennosides/Docusate Sodium TABLET PO SCH (08:45)
[2019-01-26] MEDS: Famotidine 20 MG TABLET PO SCH ×2 (08:46→21:42)
--- NOTE | 2019-01-26 11:06 | Cardiothoracic Progress Note ---
Date of Encounter: 01/26/19 Time of Encounter: 11:05 - Assessment and plan (1) Giant bullous emphysema Current Visit: Yes Status: Acute The assessment and plan as outlined above was discussed with the patient and/or family members who expressed understanding and agreement. All questions were answered. chest tube removed this morning order a chest xray for the am, if stable, may go to [facility]. . (2) Acute respiratory failure with hypoxia Current Visit: Yes Status: Acute The assessment and plan as outlined above was discussed with the patient and/or family members who expressed understanding and agreement. All questions were answered. (3) NSTEMI (non-ST elevated myocardial infarction) Current Visit: Yes Status: Acute The assessment and plan as outlined above was discussed with the patient and/or family members who expressed understanding and agreement. All questions were answered. cardiac progress note reviewed. Vital Signs, Last 4 Hours Temp Pulse Resp BP Pulse Ox 01/26/19 11:03 16 97 01/26/19 07:24 98.5 F 72 18 140/74 100 01/26/19 07:23 16 93 Oxgyen Flow Rate Oxygen Flow Rate (LPM) 4 Clinical Data, last 8 Hours Output, Chest Tube Drainage 0 Amount [Right Mid-Clavicular Chest] Output, Urine Amount 200 Output, Urine Amount 0 Output, Urine Amount 0 Weight 01/24/19 01/25/19 01/26/19 23:59 23:59 23:59 Weight 59.6 kg 59.12 kg 58.6 kg - Physical Examination General: Conversant, No Apparent Distress, Well developed, Well nourished HEENT: Atraumatic, Normocephaly, Trachea midline Cardiac: Reg Rate and Rhythm, Normal S1 and S2 Incision: No signs of infection, Dry/intact dressing Chest tubes: Minimal drainage Lungs: Decreased breath sounds Neuro: Alert and responsive, No focal deficits noted, Cranial nerves intact, Motor nerves intact - Labs 01/26/19 04:00 01/26/19 05:57 Lab Results, Last 24 hours 01/26/19 01/26/19 04:00 05:57 WBC 17.1 H Hgb 8.9 L Hct 28.1 L Plt Count 173 Sodium 140 Potassium 4.5 Chloride 107 Carbon Dioxide 31 H BUN 13 Creatinine 0.44 L Glucose 89 Calcium 8.7 - Imaging Chest Xray: image reviewed - VTE Reasons for not Prescribing Prophylaxis: Not indicated-Anticoagulated or INR therapeutic Consult Discharge Plan - Plan Referrals: Lissette Chen CNP [Primary Care Provider] -
--- NOTE | 2019-01-26 15:35 | Internal Med Progress Note ---
Hospitalist Progress Note - Encounter Date of Encounter: 01/26/19 Time of Encounter: 15:00 - Subjective Interval History: Patient seen at bedside. Denies chest pain, shortness of breath, palpitations. Denies fever, chills, rigors. Chest tube was removed today. - Exam Vitals: Temp Pulse Resp BP Pulse Ox 98.5 F 72 16 140/74 97 01/26/19 07:24 01/26/19 07:24 01/26/19 11:03 01/26/19 07:24 01/26/19 11:03 Exam: General: Ill-appearing and in no acute distress HEENT: No erythema of posterior pharynx. No exudates. Lymphatics: No mandibular or cervical lymphadenopathy Cardiovascular: RRR. No murmurs. No chest wall tenderness. Lungs: Decreased breath sounds throughout. Regular chest rise. Abdomen: Non-tender. No rebound or gaurding. Nl bowel sounds. Extremities: No edema. 2+ pulses radial and pedal pulses Skin: No rahses, abrasions, or contusions. Nl cap refill. Psych: Nl attention. A&Ox3 Neuro: mixer operator hot metal II-XII intact. 5/5 strength. Sensation to light touch and pinprick intact. - Assessment and Plan (1) Acute respiratory failure with hypoxia Current Visit: Yes Status: Acute (2) Acute encephalopathy Current Visit: Yes Status: Acute (3) NSTEMI (non-ST elevated myocardial infarction) Current Visit: Yes Status: Acute (4) Giant bullous emphysema Current Visit: Yes Status: Acute (5) COPD exacerbation Current Visit: Yes Status: Acute (6) Secondary spontaneous pneumothorax Current Visit: Yes Status: Acute (7) Anemia Current Visit: Yes Status: Acute (8) Intensive care (ICU) myopathy Current Visit: Yes Status: Acute (9) Vertigo Current Visit: Yes Status: Acute - Summary of Assessment and Plan Summary of Assessment and Plan: Acute on chronic hypoxic respiratory failure Secondary spontaneous pneumothorax Giant bullous emphysema COPD exacerbation Community-acquired pneumonia Patient with history of COPD presented with acute decompensated COPD and found to have a right-sided pneumothorax status post chest tube placement. Spontaneous Pneumothorax thought to be a competition of severe COPD with giant bullous emphysema Was initially intubated but is status post extubation 01/22 and doing well on home 2 L of oxygen Cardiothoracic surgery was evaluating patient for lung reduction surgery however not a candidate due to low pulmonary function Chest tube removed today, CXR tomorrow morning Has been treated for community-acquired pneumonia during hospital stay with various antibiotics but most recently status post Zosyn completed on 01/22 PLAN: Reepat CXR tomorrow morning Taper prednisone Oxycodone and Tylenol when necessary for chest tube pain Anticipate discharge tomorrow Intensive care myopathy Extremely weak from hospital stay in the ICU. Can hardly move her lower extremities. Will definitely need SNF. PT/OT recommending SNF SW on board for SNF placement. Anticipate dc tomorrow Leukocytosis No signs of infection Could be due to steroids Blood cultures and urine culture from earlier in hospitalization NGTD. Has been treated for community-acquired pneumonia during hospital stay with various antibiotics but most recently status post Zosyn 01/22 No pulmonary complaints. Denies dysuria. Denies abdominal pain. Continue to monitor Acute encephalopathy Resolved NSTEMI HFrEF EF 20-25% Takotsubo Cardiomyopathy Patient had troponin elevation to 1.03 in the setting of new systolic dysfunction with EF 20-25%. LHC with minimal CAD. Thought to be stress induced cardiac myopathy from critical illness. Currently euvolemic Cont ASA, statin, BB, ACEi No interventions planeed Vertigo: Improved. Liely vertigo PRN meclizine - Time Spent with Patient Total time spent is greater than 50% in coordination of care (as documented) at patient's floor/unit and/or counseling patient: Internal Medicine: Result - Labs CBC & Chem 7: 01/26/19 04:00 01/26/19 05:57 Labs: Short CBC 01/26/19 Range/Units 04:00 WBC 17.1 H (4.3-11.1) K/mcL Hgb 8.9 L (11.5-15.4) g/dL Hct 28.1 L (35.3-44.9) % Plt Count 173 (140-400) K/mcL Neutrophils # 13.6 H (1.6-8.9) K/mcL BMP 01/26/19 05:57 Sodium 140 Potassium 4.5 Chloride 107 Carbon Dioxide 31 H BUN 13 Creatinine 0.44 L Glucose 89 Calcium 8.7 - ABG Interpretation ABG results: ABG ABG pH 7.46 pH Units (7.32-7.45) H 01/21/19 04:29 ABG pCO2 45 mmHg (35-45) 01/21/19 04:29 ABG pO2 102 mmHg (85-104) 01/21/19 04:29 ABG O2 Saturation 98 % (95-98) 01/21/19 04:29 PT/INR, D-dimer PT 12.4 Seconds (9.4-12.1) H 01/21/19 04:09 D-Dimer 1026 ng/mLFEU (0-500) H 01/13/19 20:29 - Impressions Impressions Chest X-Ray 01/26/19 08:19 IMPRESSION: 1. Stable position of right pleural catheter. No visible pneumothorax. 2. Emphysema with left apical bullous disease. D/ / Randy Claudio MD / Randy Claudio MD Interpreting Provider: Randy Claudio MD - VTE Reasons for not Prescribing Prophylaxis: Not indicated-Anticoagulated or INR therapeutic Consult Discharge Plan - Plan Referrals: Lissette Chen, B2B OUTSIDE SALES REPRESENTATIVE [Primary Care Provider] - (7) Anemia Qualifiers: Anemia type: unspecified type Qualified Code(s): D64.9 - Anemia, unspecified
[2019-01-27] MEDS: Ipratropium/Albuterol Neb 3 ML IH SCH ×3 (03:46→11:28)
[2019-01-27] MEDS: *HR* Heparin 5,000 UNIT/ML VIAL SQ SCH (05:51)
[2019-01-27 06:17] LABS: Basophils % 0.1 %; Eosinophils # 0.1 K/mcL (0.0-0.6); Eosinophils % 0.7 %; Hematocrit 26.4 % (35.3-44.9); Hemoglobin 8.4 g/dL (11.5-15.4); Immature Granulocytes % 1.8 % (0-4); Lymphocytes # 1.3 K/mcL (0.6-4.6); Lymphocytes % 9.2 %; Mean Corpuscular HGB Conc 31.8 g/dL (31.6-35.5); Mean Corpuscular Hemoglobin 31.5 pg (28.0-33.3); Mean Corpuscular Volume 98.9 fL (83.0-100.0); Mean Platelet Volume 12.8 fL (9.4-12.4); Monocytes # 1.2 K/mcL (0.0-1.3); Monocytes % 8.8 %; Neutrophils # 10.8 K/mcL (1.6-8.9); Nucleated Red Blood Cells 0.1 /100 WBC (0); Platelet Count 152 K/mcL (140-400); Red Blood Count 2.67 M/mcL (3.82-4.97); Red Cell Distribution Width 15.5 % (11.5-14.5); Segmented Neutrophils % 79.4 %; White Blood Count 13.6 K/mcL (4.3-11.1)
[2019-01-27 06:31] LABS: BUN/Creatinine Ratio 40 (6-26); Blood Urea Nitrogen 19 mg/dL (8-23); Calcium 8.3 mg/dL (8.6-10.3); Carbon Dioxide 30 mEq/L (23-29); Chloride 109 mEq/L (98-107); Glucose 102 mg/dL (70-105); Osmolality,Calculated 290 (280-300); Potassium 3.4 mEq/L (3.5-5.1); Sodium 139 mEq/L (136-145); eGFR For African Americans > 60 (> 60); eGFR For Non-African Americans > 60 (> 60)
[2019-01-27 06:37] VITALS: BP 140/70
[2019-01-27] MEDS ORDERED: predniSONE 20 MG TABLET PO SCH (09:00)
[2019-01-27] MEDS: Sennosides/Docusate Sodium TABLET PO SCH (09:02)
[2019-01-27] MEDS: Aspirin 81 MG TAB.CHEW PO SCH (09:02)
[2019-01-27] MEDS: Famotidine 20 MG TABLET PO SCH (09:02)
--- NOTE | 2019-01-27 09:04 | Cardiothoracic Progress Note ---
Date of Encounter: 01/27/19 Time of Encounter: 09:03 - Assessment and plan (1) Giant bullous emphysema Current Visit: Yes Status: Acute The assessment and plan as outlined above was discussed with the patient and/or family members who expressed understanding and agreement. All questions were answered. may discharge to subacute today follow up with pulm med after discharge from subacute (2) Acute respiratory failure with hypoxia Current Visit: Yes Status: Acute The assessment and plan as outlined above was discussed with the patient and/or family members who expressed understanding and agreement. All questions were answered. (3) NSTEMI (non-ST elevated myocardial infarction) Current Visit: Yes Status: Acute The assessment and plan as outlined above was discussed with the patient and/or family members who expressed understanding and agreement. All questions were answered. cardiac progress note reviewed. Vital Signs, Last 4 Hours Temp Pulse Resp BP Pulse Ox 01/27/19 08:02 20 98 01/27/19 07:35 17 94 01/27/19 06:34 98.0 F 79 18 140/70 100 Oxgyen Flow Rate Oxygen Flow Rate (LPM) 3 Clinical Data, last 8 Hours Output, Urine Amount 150 Output, Urine Amount 250 Output, Urine Amount 350 Weight 01/25/19 01/26/19 01/27/19 23:59 23:59 23:59 Weight 59.12 kg 58.6 kg 58.6 kg - Physical Examination General: Conversant, No Apparent Distress Cardiac: Reg Rate and Rhythm, Normal S1 and S2 Incision: No signs of infection, Dry/intact dressing Lungs: Decreased breath sounds Neuro: Alert and responsive, No focal deficits noted, Cranial nerves intact, Motor nerves intact - Labs 01/27/19 04:00 01/27/19 04:00 Lab Results, Last 24 hours 01/27/19 01/27/19 04:00 04:00 WBC 13.6 H Hgb 8.4 L Hct 26.4 L Plt Count 152 Sodium 139 Potassium 3.4 L Chloride 109 H Carbon Dioxide 30 H BUN 19 Creatinine 0.47 L Glucose 102 Calcium 8.3 L - Imaging Chest Xray: image reviewed - VTE Reasons for not Prescribing Prophylaxis: Not indicated-Anticoagulated or INR therapeutic Consult Discharge Plan - Plan Referrals: Lissette Chen, UTILITY BILL COLLECTOR [Primary Care Provider] -
[2019-01-27] MEDS ORDERED: Potassium Chloride Elixir 20 MEQ/15 ML UDC PO ONE (10:38)
--- NOTE | 2019-01-27 12:13 | Discharge Summary ---
- NOTES TO OUTPATIENT PROVIDER Notes to Outpatient Provider: Presented with shortness of breath, found to be pneumothorax, chest tube was placed, removed yesterday, just actually normal today. Also been discharged on tapering dose of steroids for COPD. HAd cardiomyopathy, LHC clear. Likely in contet of acute stress, may need repeat in a few weks to document resolution Orders not resulted at time of discharge: Pending orders 01/24/19 07:45 Culture,Sputum with Gram Stain [RM] Routine 01/24/19 08:38 Culture,Blood [BC] Routine Date of Encounter: 01/27/19 Time of Encounter: 10:30 - Discharge Diagnosis (1) Acute respiratory failure with hypoxia Priority: Primary Status: Acute (2) Acute encephalopathy Priority: Secondary Status: Acute (3) NSTEMI (non-ST elevated myocardial infarction) Priority: Secondary Status: Acute (4) Giant bullous emphysema Priority: Secondary Status: Acute (5) COPD exacerbation Priority: Secondary Status: Acute (6) Secondary spontaneous pneumothorax Priority: Secondary Status: Acute (7) Anemia Priority: Secondary Status: Acute Qualifiers: Anemia type: unspecified type Qualified Code(s): D64.9 - Anemia, unspecified (8) Intensive care (ICU) myopathy Priority: Secondary Status: Acute (9) Vertigo Priority: Secondary Status: Acute Hospital course: Ms. Andre is a 68 year old female with above medical history significant for COPD, presented to the hospital because of the acute shortness of breath. She was found to be hypoxic, chest x-ray was consistent with pneumothorax. Chest tube was placed and the patient was intubated and sedated in the ICU. She was also diagnosed with COPD exacerbation and pneumonia. She was treated for COPD exacerbation and pneumonia. She will be discharged on prednisone taper, completed a course of antibiotics. The chest tube was removed yesterday by the cardiothoracic surgery. Chest x-ray was done today which was negative for pneumothorax. She was also evaluated for lung reduction surgery but she is not a candidate because of the low pulmonary functions. Echocardiogram was also done in the hospital which showed reduced ejection fraction of 20-25%. Patient had left heart catheterization done which showed normal coronary arteries, cardiomyopathy was likely nonischemic due to acute stress, recommendations are to continue aspirin, statins, beta shani and ERIKA inhibitor with the recommendations to do the repeat echocardiography in the next few weeks to document resolution. Patient had intensive care myopathy with severe weakness. She was alerted by the PT/OT and they recommended halfway facility placement for further rehabilitation. Patient will be transferred to skilled facility for physical therapy. Patient also had leukocytosis, likely because of the steroids, no signs of infection currently, continues to improve. She is being discharged today in stable condition to the skilled facility. Plan discussed with the patient was agreeable. - Time Spent with Patient Total time spent providing and/or coordinating discharge services: 45 minutes - Discharge Medications Prescriptions: New RX: Meclizine [Antivert] 25 mg PO TID PRN tablet PRN Reason: Dizziness RX: Aspirin 81 mg PO DAILY tab.chew RX: Atorvastatin [Lipitor] 40 mg PO HS tablet RX: predniSONE [PredniSONE] See Taper PO DAILY tablet Metoprolol Succinate [Toprol Xl] 50 mg PO DAILY #30 tab.er.24h RX: Lisinopril [Zestril] 2.5 mg PO DAILY tablet Continued RX: Budesonide/Formoterol 160/4.5 [Symbicort 160/4.5] 2 inh IH BIDR RX: Tiotropium [place] [Spiriva Respimat] 2 inh IH DAILY RX: Albuterol Sulfate [Ventolin Hfa] 2 inh PO Q4H PRN PRN Reason: Wheezing Home Medications: RX: Albuterol Sulfate [Ventolin Hfa] 2 inh PO Q4H PRN 01/14/19 [History] RX: Budesonide/Formoterol 160/4.5 [Symbicort 160/4.5] 2 inh IH BIDR 01/14/19 [History] RX: Tiotropium [place] [Spiriva Respimat] 2 inh IH DAILY 01/14/19 [History] Metoprolol Succinate [Toprol Xl] 50 mg PO DAILY #30 tab.er.24h 01/27/19 [Rx] RX: Aspirin 81 mg PO DAILY tab.chew 01/27/19 [Rx] RX: Atorvastatin [Lipitor] 40 mg PO HS tablet 01/27/19 [Rx] RX: Lisinopril [Zestril] 2.5 mg PO DAILY tablet 01/27/19 [Rx] RX: Meclizine [Antivert] 25 mg PO TID PRN tablet 01/27/19 [Rx] RX: predniSONE [PredniSONE] See Taper PO DAILY tablet 10/02/19 [Rx] Allergies/Adverse Reactions: Allergy/AdvReac Type Severity Reaction Status Date / Time No Known Allergies Allergy Unverified 10/15/16 12:12 Date of admission: 01/13/19 19:56 Primary care physician: Lissette Chen, Consults: 01/14/19 02:49 Consult to Cardiology [CONS] Routine Comment: Consulting Provider: Cardiology [place] Reason for Consult: elevated tropnin Call Completed: Yes 01/14/19 08:48 Consult to Pulmonology [CONS] Routine Consulting Provider: Pulm [facility] Reason for Consult: vent/ICU managment Call Completed: Yes 01/14/19 13:13 Consult to Thoracic Surgery [CONS] Routine Consulting Provider: Cardiothoracic Surgery [place] Reason for Consult: PTX Call Completed: Yes 01/15/19 11:53 consult to strategic business development [Consult to Nutrition] [CONS] Stat Comment: Consulting Provider: NUTRITION Reason for Dietary Consult: Tube Feed Start & Manage 01/16/19 09:14 Consult to Interventional Radiology [CONS] Stat Consulting Provider: Radiology Interventional [place] Reason for Consult: Chest tube placement Call Completed: Yes 01/22/19 Consult to Occupational Therapy [CONS] Routine Comment: Evaluate, develop and implement POC Reason for Consult: Extubated today following extended intubation and best rest. Will need physical and occupational therapy. Does patient have active BEDREST order?: No Is patient medically & hemodynamically stable?: Yes Patient assessed for mobility or mobilized this visit?: No Consult to Physical Therapy [CONS] Routine Comment: Evaluate, develop and implement POC Reason for Consult: Extubated today following extended intubation and best rest. Will need physical and occupational therapy Does patient have active BEDREST order?: No Is patient medically & hemodynamically stable?: Yes Patient assessed for mobility or mobilized this visit?: No 01/22/19 14:39 Consult to Invasive Line Access Team [CONS] Routine Reason for Consult: Loss of access Line Type: EPIV - Constitutional Vitals: Temp Pulse Resp BP Pulse Ox 98.0 F 79 16 140/70 99 01/27/19 06:34 01/27/19 06:34 01/27/19 11:28 01/27/19 06:34 01/27/19 11:28 General appearance: Present: A&O X 0 (Intubated and mechanically ventilated with sedation) Exam: General: Ill-appearing and in no acute distress HEENT: No erythema of posterior pharynx. No exudates. Lymphatics: No mandibular or cervical lymphadenopathy Cardiovascular: RRR. No murmurs. No chest wall tenderness. Lungs: Decreased breath sounds throughout. Regular chest rise. Abdomen: Non-tender. No rebound or gaurding. Nl bowel sounds. Extremities: No edema. 2+ pulses radial and pedal pulses Skin: No rahses, abrasions, or contusions. Nl cap refill. Psych: Nl attention. A&Ox3 Neuro: dye winch operator II-XII intact. 5/5 strength. Sensation to light touch and pinprick intact. - Patient Status Disposition: Transfer SNF Condition: Fair - Discharge Instructions Follow Up With: Lisstete Chen CNP [Primary Care Provider] - - Diet and Activity Activity: as per physical therapy, increase activity as tolerated Diet: low salt diet - VTE Reasons for not Prescribing Prophylaxis: Not indicated-Anticoagulated or INR therapeutic
--- NOTE | 2019-01-27 12:21 | Physician Discharge Referral ---
[facility] Referral Info Provider in Charge after Transfer: PCP Institutional Level of Care: Skilled - Diagnosis (1) Acute respiratory failure with hypoxia Priority: Primary Status: Acute (2) Acute encephalopathy Priority: Secondary Status: Acute (3) NSTEMI (non-ST elevated myocardial infarction) Priority: Secondary Status: Acute (4) Giant bullous emphysema Priority: Secondary Status: Acute (5) COPD exacerbation Priority: Secondary Status: Acute (6) Secondary spontaneous pneumothorax Priority: Secondary Status: Acute (7) Anemia Priority: Secondary Status: Acute (8) Intensive care (ICU) myopathy Priority: Secondary Status: Acute (9) Vertigo Priority: Secondary Status: Acute - Transfer Medications Prescriptions: Metoprolol Succinate [Toprol Xl] 50 mg PO DAILY #30 tab.er.24h Home Medications: Albuterol Sulfate [Ventolin Hfa] 2 inh PO Q4H PRN 01/14/19 [History] Budesonide/Formoterol 160/4.5 [Symbicort 160/4.5] 2 inh IH BIDR 01/14/19 [History] Tiotropium [place] [Spiriva Respimat] 2 inh IH DAILY 01/14/19 [History] Aspirin 81 mg PO DAILY tab.chew 01/27/19 [Rx] Atorvastatin [Lipitor] 40 mg PO HS tablet 01/27/19 [Rx] Lisinopril [Zestril] 2.5 mg PO DAILY tablet 01/27/19 [Rx] Meclizine [Antivert] 25 mg PO TID PRN tablet 01/27/19 [Rx] Metoprolol Succinate [Toprol Xl] 50 mg PO DAILY #30 tab.er.24h 01/27/19 [Rx] predniSONE [PredniSONE] See Taper PO DAILY tablet 01/27/19 [Rx] Allergies/Adverse Reactions: Allergy/AdvReac Type Severity Reaction Status Date / Time No Known Allergies Allergy Unverified 10/15/16 12:12 - Respiratory Orders Smoking Cessation: Smoking cessation has been advised. For more information, call the [employer] Tobacco Quit Line at 3-335-UQNFNOW. CERTIFICATION: I certify that the transfer of the above named patient to an Extended Care Facility is necessary for the continuing treatment of the diagnosis listed. The above information is true and accurate reflection of patient's current condition. Confidential - Redisclosure prohibited without a patient's written consent.
[2019-01-27] MEDS ORDERED: FLU Vac QV 19-20 (6Month+)/PF 0.5 ML SYRINGE IM ONE (13:18)
== END 2019-01-27 15:01 | DRG 207 ==
LOC: SUATTDRO 19:56 → ICNU 19:56 → 2NENU 01-23 18:42
PROVIDERS: ADMIT Internal Medicine; ATTEND Internal Medicine